=== PATIENT | female | born 1975 | race Caucasian/White ===

== ENCOUNTER 2018-01-16 12:45 | Observation (INO) ==
[2018-01-16 14:22] LABS: Basophils % 0.2 %; Eosinophils % 0.1 %; Hematocrit 39.4 % (35.3-44.9); Hemoglobin 13.5 g/dL (11.5-15.4); Immature Granulocytes % 0.4 % (0-4); Lymphocytes # 2.6 K/mcL (0.6-4.6); Lymphocytes % 16.5 %; Mean Corpuscular HGB Conc 34.3 g/dL (31.6-35.5); Mean Corpuscular Hemoglobin 30.9 pg (28.0-33.3); Mean Corpuscular Volume 90.2 fL (83.0-100.0); Mean Platelet Volume 10.7 fL (9.4-12.4); Monocytes # 1.1 K/mcL (0.0-1.3); Monocytes % 6.8 %; Neutrophils # 11.7 K/mcL (1.6-8.9); Platelet Count 284 K/mcL (140-400); Red Blood Count 4.37 M/mcL (3.82-4.97); Red Cell Distribution Width 12.9 % (11.5-14.5)
[2018-01-16 14:24] LABS: Alanine Aminotransferase 11 Units/L (7-52); Albumin 4.7 g/dL (3.5-5.7); Alkaline Phosphatase 122 Units/L (34-104); Aspartate Amino Transferase 13 Units/L (13-39); BUN/Creatinine Ratio 23 (6-26); Bilirubin,Indirect 0.2 mg/dL (0.0-1.2); Bilirubin,Total 0.2 mg/dL (0.3-1.0); Blood Urea Nitrogen 15 mg/dL (6-20); Calcium 9.9 mg/dL (8.6-10.3); Carbon Dioxide 27 mEq/L (23-29); Chloride 107 mEq/L (98-107); Globulin 2.4 g/dL (2.4-3.5); Glucose 94 mg/dL (70-105); Lipase 16 Units/L (11-82); Osmolality,Calculated 293 (280-300); Potassium 3.4 mEq/L (3.5-5.1); Sodium 141 mEq/L (136-145); Total Protein 7.1 g/dL (6.4-8.9); eGFR For Non-African Americans > 60 (> 60)
[2018-01-16] MEDS ORDERED: GI Cocktail 40 ML EACH PO ONE (15:46)
[2018-01-16] MEDS ORDERED: Ondansetron ODT 4 MG TAB.RAPDIS SL ONE (15:47)
[2018-01-16] MEDS ORDERED: *HR* Nalbuphine 10 MG/ML AMPUL IV PRN (16:21)
[2018-01-16] MEDS ORDERED: *HR* Nalbuphine 10 MG/ML AMPUL IV ONE (16:45)
[2018-01-16] MEDS ORDERED: *HR* Promethazine 25 MG/ML VIAL IVP ONE (17:00)
[2018-01-16] MEDS ORDERED: *HR* FentaNYL (PF) 100 MCG/2 ML VIAL IVP ONE ×2 (17:00→18:51)
--- NOTE | 2018-01-16 17:02 | Emergency Department Note ---
Disposition Clinical Impression: Chest pressure, Epigastric pain, Odynophagia Disposition: Still a Patient Referrals: NONE,PCP [Primary Care Provider] - Forms: ED Satisfaction Letter, Work/School Release General Adult HPI - General Chief complaint: ED Abdominal Pain Stated complaint: "coffee ground emesis",abd pain Time Seen by Provider: 01/16/18 15:33 - History of Present Illness Pain Scale: 9 - Related Data Allergies Allergy/AdvReac Type Severity Reaction Status Date / Time aspirin [ASA] Allergy Hives Verified 01/15/18 10:21 Iodinated Contrast- Oral and Allergy Hives Verified 01/15/18 11:27 IV Dye ketorolac [From Toradol] Allergy Hives Verified 01/15/18 10:21 prochlorperazine Allergy Hives Verified 01/15/18 10:21 [From Compazine] Past Medical History - Past Medical History Medical history: 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, pulmonary embolus, thyroid disease Psychiatric history: Reports: no psych history - Social History Smoking Status: Current every day smoker Alcohol use: Reports: none Drug use: Reports: none Course Vital Signs Temperature 98.1 F 01/16/18 13:09 Pulse Rate 121 01/16/18 13:09 Respiratory Rate 22 01/16/18 13:09 Blood Pressure 122/88 01/16/18 13:09 O2 Sat by Pulse Oximetry 100 01/16/18 13:09 Temperature 98.1 F 01/16/18 13:09 Pulse Rate 121 01/16/18 13:09 Respiratory Rate 22 01/16/18 13:09 Blood Pressure 122/88 01/16/18 13:09 O2 Sat by Pulse Oximetry 100 01/16/18 13:09 Oxygen Delivery Oxygen Delivery Room Air Medical Decision Making - MDM Narrative Medical decision making narrative: Patient states she is unable to eat or drink anything. She attempted to drink water but regurg to back up. I am concerned for possible esophageal foreign body versus stricture. She does have a history of esophageal strictures that has required dilation in the past. Her CT Brown and pelvis did not show any acute findings. She had a CTA of the chest done yesterday but there is no men tion of her having any foreign body stuck at that time. She states 2 nights ago she was eating steak and felt like she had a hard time swallowing and. She has not felt right since then. She describes this pain and pressure in her chest. We will consult with endoscopy or GI for possible EGD. - Medical Records Medical records reviewed: Yes I reviewed the patient's medical records. - Lab Data Lab results reviewed: Yes I reviewed the patient's lab results. Result diagrams: 01/16/18 13:44 01/16/18 13:44 Lab Results 01/16/18 01/16/18 Range/Units 13:44 13:44 WBC 15.5 H (4.3-11.1) K/mcL RBC 4.37 (3.82-4.97) M/mcL Hgb 13.5 (11.5-15.4) g/dL Hct 39.4 (35.3-44.9) % MCV 90.2 (83.0-100.0) fL MCH 30.9 (28.0-33.3) pg MCHC 34.3 (31.6-35.5) g/dL RDW 12.9 (11.5-14.5) % Plt Count 284 (140-400) K/mcL MPV 10.7 (9.4-12.4) fL Immature Gran % 0.4 (0-4) % Seg Neutrophils % 76.0 % Lymphocytes % 16.5 % Monocytes % 6.8 % Eosinophils % 0.1 % Basophils % 0.2 % Neutrophils # 11.7 H (1.6-8.9) K/mcL Lymphocytes # 2.6 (0.6-4.6) K/mcL Monocytes # 1.1 (0.0-1.3) K/mcL Eosinophils # 0.0 (0.0-0.6) K/mcL Basophils # 0.0 (0.0-0.2) K/mcL Sodium 141 (136-145) mEq/L Potassium 3.4 L (3.5-5.1) mEq/L Chloride 107 (98-107) mEq/L Carbon Dioxide 27 (23-29) mEq/L BUN 15 (6-20) mg/dL Creatinine 0.64 (0.60-1.20) mg/dL Est GFR ( Amer) > 60 (> 60) Est GFR (Non-Af Amer) > 60 (> 60) BUN/Creatinine Ratio 23 (6-26) Glucose 94 (70-105) mg/dL Calculated Osmolality 293 (280-300) Calcium 9.9 (8.6-10.3) mg/dL Total Bilirubin 0.2 L (0.3-1.0) mg/dL Direct Bilirubin 0.0 (0.0-0.2) mg/dL Indirect Bilirubin 0.2 (0.0-1.2) mg/dL AST 13 (13-39) Units/L ALT 11 (7-52) Units/L Alkaline Phosphatase 122 H (34-104) Units/L Serum Total Protein 7.1 (6.4-8.9) g/dL Albumin 4.7 (3.5-5.7) g/dL Globulin 2.4 (2.4-3.5) g/dL Albumin/Globulin Ratio 2.0 (1.1-2.2) Lipase 16 (11-82) Units/L - Radiology Data Radiology results reviewed: Yes I reviewed the patient's radiology results. Attestation Statement - Attestation Attestation: I examined this patient and my medical decision-making was reviewed with the Resident Physician. I agree with the documented findings, disposition and treatment plan as described except to the extent set forth below. 42-year-old female presents to the emergency room with epigastric abdominal pain. Patient was seen here yesterday by the other emergency room physician for workup for a pulmonary embolus. Her scan of her chest yesterday was negative for any pulmonary embolus. She states she developed upper abdominal pain specifically to the epigastric region overnight around 2 AM. She has had persistent pain ever since. She states she threw up coffee ground emesis earlier. She denies blood in her stool. No fevers. She does feel bloated. She feels that she cannot swallow well. We will do a CT scan abdomen and pelvis. Patient initially refused the study until she got pain medication. I have ordered her Nubain pain medication but she refused it. She would rather have Dilaudid or fentanyl.
--- NOTE | 2018-01-16 17:05 | Emergency Department Note ---
Disposition Clinical Impression: Chest pressure, Epigastric pain, Odynophagia Disposition: Admitted As Inpatient Time of Disposition: 19:53 Abdominal Pain HPI - General Chief Complaint: ED Abdominal Pain Stated Complaint: "coffee ground emesis",abd pain Time Seen by Provider: 01/16/18 15:33 Source: patient Mode of arrival: private vehicle Limitations: no limitations Nursing Notes Reviewed: Yes Vital Signs Reviewed: Yes - History of Present Illness HPI Narrative: Patient is a 42-year-old female presenting to [facility] ED for one day history of abdominal pain. Patient was seen yesterday in the ED due to chest pressure and pleuritic chest pain with concerns over pulmonary embolism. CTA yielded no pathology in the patient was discharged home. Patient states that at approximately 1 AM this morning she developed mid epigastric pain 10 out of 10 on the pain scale sharp and stabbing in nature that radiates to her left flank. Patient states that she has continuously had chest pressure which brought her to the ED yesterday. Patient admits to headache, denies vision change or tinnitus, patient states that she is experiencing severe dysphasia and cannot swallow her own secretions. Patient's admits to vomiting "coffee ground emesis". Patient denies hematuria or hematochezia as well as generalized paresthesias. Pt Subjective Complaint: abdominal pain Onset (ago): day(s) Consistency: constant Location: epigastric Pain Severity: severe Pain Scale: 10 Quality: stabbing, sharp Radiation: L flank Migration to: no migration Improves with: medication Associated symptoms: Reports: nausea, vomiting, hematemesis, anorexia - Related Data Home Medications Medication Instructions Recorded Confirmed Levothyroxine Sodium [Levoxyl] 125 mcg PO QAM 01/16/18 01/16/18 Polyethylene Glycol 3350 [MiraLax 17 gm PO DAILY PRN 01/16/18 01/16/18 bowel prep] Allergies Allergy/AdvReac Type Severity Reaction Status Date / Time aspirin [ASA] Allergy Hives Verified 01/15/18 10:21 Iodinated Contrast- Oral and Allergy Hives Verified 01/15/18 11:27 IV Dye ketorolac [From Toradol] Allergy Hives Verified 01/15/18 10:21 prochlorperazine Allergy Hives Verified 01/15/18 10:21 [From Compazine] All systems ED: reviewed and negative except as stated. Review of Systems: As Per HPI Constitutional: Reports: weakness ENT ED: Reports: dysphagia Cardiovascular: Reports: chest pain Respiratory: Reports: dyspnea Gastrointestinal: Reports: abdominal pain, nausea, vomiting, hematemesis. Denies: hematochezia Genitourinary: Denies: hematuria Musculoskeletal: Reports: back pain Neurological: Reports: headache. Denies: numbness, paresthesias Abdominal Pain PMH - Past Medical History Medical history: 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, pulmonary embolus, thyroid disease Female Surgical History: Reports: appendectomy, cholecystectomy, herniorrhaphy, hysterectomy, orthopedic, other Psychiatric history: Reports: no psych history - Social History Smoking status: Current every day smoker Alcohol use: Reports: none Drug use: Reports: none Physical Exam - General Limitations: no limitations General appearance: alert, in distress - Head Head exam: atraumatic, normocephalic, normal inspection - Eye Eye exam: Present: normal appearance, PERRL, EOMI. Absent: scleral icterus, conjunctival injection - Neck Neck exam: Present: normal inspection, trachea midline - Chest Chest inspection: Present: normal inspection - Respiratory Respiratory exam: Present: normal lung sounds bilaterally. Absent: respiratory distress, wheezes, stridor, accessory muscle use, prolonged expiratory phase - Cardiovascular Cardiovascular exam: Present: regular rate, normal rhythm, normal heart sounds, +S1, +S2. Absent: JVD, +S3, +S4 - Abdominal Exam Abdominal exam: Present: soft, tenderness, normal bowel sounds. Absent: distention, guarding, rebound, rigidity - Neurological Exam Neurological exam: Present: alert, oriented X3 - Psychiatric Psychiatric exam: Present: agitated - Skin Skin exam: Present: warm, dry, intact, normal color. Absent: cyanosis, diaphoresis Course Course Narrative: Patient history, review systems, and physical exam are concerning for abdominal pelvic pathology. CBC, BMP, CT of the abdomen and pelvis, hepatic panel, lipase, urinalysis, EKG be performed to assess for underlying pathology. Patient was initially prescribed GI cocktail as well as Zofran to manage mental of her symptoms, which was refused. Patient was prescribed Nubain which was al so refused due to patient's concerns over previous allergies to opioid medications. Patient requests fentanyl or Dilaudid for the management of her symptoms. Patient was administered fentanyl for pain control. - Reevaluation(s) Reevaluation #1: Patient states that her pain is significantly relieved with Phenergan and fentanyl. She currently rates her pain as 5 out of 10 on the pain scale down from 10 out of 10 on initial encounter. Time: 17:43 - Consultations Consultation #1: Dr. Castaneda - Gastroenterology Vital Signs Temperature 98.1 F 01/16/18 13:09 Pulse Rate 121 01/16/18 13:09 Respiratory Rate 22 01/16/18 13:09 Blood Pressure 122/88 01/16/18 13:09 O2 Sat by Pulse Oximetry 100 01/16/18 13:09 Temperature 98.1 F 01/16/18 13:09 Pulse Rate 121 01/16/18 13:09 Respiratory Rate 22 01/16/18 13:09 Blood Pressure 122/88 01/16/18 13:09 O2 Sat by Pulse Oximetry 100 01/16/18 13:09 Oxygen Delivery Oxygen Delivery Room Air Abdominal Pain - MDM Narrative Medical decision making narrative: Dr. Castaneda from gastroenterology consulted - recommends admission to the hospital with gastroenterology consult for endoscopy tomorrow morning. Plan for admission discussed with the patient and the patient agrees with this plan. Hospitalists accepts admission and requests Hemoccult stool sample prior to admission as inpatient. - Lab Data Lab results reviewed: Yes I reviewed the patient's lab results. Result diagrams: 01/16/18 13:44 01/16/18 13:44 Lab Results 01/16/18 01/16/18 Range/Units 13:44 13:44 WBC 15.5 H (4.3-11.1) K/mcL RBC 4.37 (3.82-4.97) M/mcL Hgb 13.5 (11.5-15.4) g/dL Hct 39.4 (35.3-44.9) % MCV 90.2 (83.0-100.0) fL MCH 30.9 (28.0-33.3) pg MCHC 34.3 (31.6-35.5) g/dL RDW 12.9 (11.5-14.5) % Plt Count 284 (140-400) K/mcL MPV 10.7 (9.4-12.4) fL Immature Gran % 0.4 (0-4) % Seg Neutrophils % 76.0 % Lymphocytes % 16.5 % Monocytes % 6.8 % Eosinophils % 0.1 % Basophils % 0.2 % Neutrophils # 11.7 H (1.6-8.9) K/mcL Lymphocytes # 2.6 (0.6-4.6) K/mcL Monocytes # 1.1 (0.0-1.3) K/mcL Eosinophils # 0.0 (0.0-0.6) K/mcL Basophils # 0.0 (0.0-0.2) K/mcL Sodium 141 (136-145) mEq/L Potassium 3.4 L (3.5-5.1) mEq/L Chloride 107 (98-107) mEq/L Carbon Dioxide 27 (23-29) mEq/L BUN 15 (6-20) mg/dL Creatinine 0.64 (0.60-1.20) mg/dL Est GFR ( Amer) > 60 (> 60) Est GFR (Non-Af Amer) > 60 (> 60) BUN/Creatinine Ratio 23 (6-26) Glucose 94 (70-105) mg/dL Calculated Osmolality 293 (280-300) Calcium 9.9 (8.6-10.3) mg/dL Total Bilirubin 0.2 L (0.3-1.0) mg/dL Direct Bilirubin 0.0 (0.0-0.2) mg/dL Indirect Bilirubin 0.2 (0.0-1.2) mg/dL AST 13 (13-39) Units/L ALT 11 (7-52) Units/L Alkaline Phosphatase 122 H (34-104) Units/L Serum Total Protein 7.1 (6.4-8.9) g/dL Albumin 4.7 (3.5-5.7) g/dL Globulin 2.4 (2.4-3.5) g/dL Albumin/Globulin Ratio 2.0 (1.1-2.2) Lipase 16 (11-82) Units/L - Radiology Data Radiology results reviewed: Yes I reviewed the patient's radiology results. Chest X-Ray 01/16/18 15:47 IMPRESSION: 1. No radiographic finding to account for patient's hematemesis. D/ / Lenny Cuba MD / Lenny Cuba MD Interpreting Provider: Lenny Cuba MD Abdomen/Pelvis CT 01/16/18 15:47 IMPRESSION: No evidence for acute intra-abdominal or intrapelvic pathology. No bowel obstruction or inflammation. No evidence for nephrolithiasis or urinary obstruction. Status post appendectomy and cholecystectomy. Left-sided nephrolithiasis without urinary obstruction or hydronephrosis. Postsurgical changes of the lumbar spine. Diastases of the anterior abdominal wall. D/ / Cleveland Kline MD / Cleveland Kline MD Interpreting Provider: Clevleand Kline MD Chest X-Ray 01/16/18 15:47 IMPRESSION: 1. No radiographic finding to account for patient's hematemesis. D/ / Lenny Cuba MD / Lenny Cuba MD Interpreting Provider: Lenny Cuba MD - EKG Data EKG attestation: Yes I reviewed and interpreted this EKG. EKG results narrative: Patient EKG shows a sinus tachycardia with normal rhythm and axis, heart rate is 103 bpm, WI interval of 131 ms, QRS duration of 91 ms, QT/QTc interval 343/449 ms respectively. There are no significant ST segment elevations, depressions, abnormal T-wave inversions, pathologic Q waves, or any other signs of acute ischemic change. This EKG performed today is generally consistent with prior EKG performed on 01/15/2018.
[2018-01-16] MEDS ORDERED: Famotidine 20 MG/2 ML VIAL IVP ONE (17:09)
[2018-01-16] MEDS ORDERED: Water for inj. (sterile) 10 ML IV ONE (17:17)
[2018-01-16] MEDS ORDERED: Potassium Chloride 40 MEQ in D5% in 0.9% NACL 1,000 ML IVC SCH (19:30)
[2018-01-16] MEDS ORDERED: Ondansetron 4 MG/2 ML VIAL IVP PRN (19:30)
[2018-01-16] MEDS ORDERED: Metoclopramide 10 MG/2 ML VIAL IVP PRN (19:31)
--- NOTE | 2018-01-16 20:57 | Internal Med History&Physical ---
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 She was initially seen last night for this and PE was ruled out with a CTA. She comes in with ongoing pain now stating that it commenced after eating something and feels as though something is stuck in her esophagus. She states she has been unable to swallow since and regurgitates even fluid. She reports having had what looked like coffee ground emesis 1 time but has not recurred. She then had CT abdomen/pelvis done which did not show any acute pathologies. GI was consulted and recommended she be observed overnight and will undergo EGD in the morning. Of note, she states that she is intolerant of any pain medications other than fentanyl and dilaudid and needs it round the clock. Past Med Surg Social Fam HX - Past Medical History Medical history: DVT, pulmonary embolus, thyroid disease Additional medical history: DDD Psychiatric history: no psych history - Past Surgical History Additional surgical history: sections of bowel remove - Social History Smoking Status: Current every day smoker Smokeless Tobacco Status: No Alcohol use: none Drug use: none Internal Medicine - H&P: Meds Levothyroxine Sodium [Levoxyl] 125 mcg PO QAM 01/16/18 [History] Polyethylene Glycol 3350 [MiraLax bowel prep] 17 gm PO DAILY PRN 01/16/18 [History] Allergy/AdvReac Type Severity Reaction Status Date / Time aspirin [ASA] Allergy Hives Verified 01/15/18 10:21 Iodinated Contrast- Oral and Allergy Hives Verified 01/15/18 11:27 IV Dye ketorolac [From Toradol] Allergy Hives Verified 01/15/18 10:21 prochlorperazine Allergy Hives Verified 01/15/18 10:21 [From Compazine] All Systems PM: A 10-system review of systems was performed and is negative for pertinent f indings except as documented above in the HPI. Family history obtained and found noncontributory. - Constitutional Vitals: Temp Pulse Resp BP Pulse Ox 98.1 F 121 22 122/88 100 01/16/18 20:31 01/16/18 20:31 01/16/18 20:31 01/16/18 20:31 01/16/18 20:31 Exam: Vitals: Reviewed General: Obese white female lying comfortably in bed in NAD Skin: Warm and supple. HEENT: Moist mucous membranes. No conjunctivae pallor. Neck: No lymphadenopathy. No JVD. No carotid bruits. No palpable thyroid. Chest: Normal thoracic expansion. Normal breath sounds. Clear to auscultation. Heart: Normal S1 & S2; rhythmic. No rubs or murmurs. Abdomen: Non-distended, soft and tender elicited on superficial palpation of her epigastrium. Midline surgical incision scar noted. Extremities: No clubbing, cyanosis or edema. No calf tenderness. Normal distal pulses. Neurological: Awake, alert and oriented to person, place and time. No focal deficits. Psych: Affect appropriate. Internal Med - H&P Results - Labs CBC & Chem 7: 01/16/18 13:44 01/16/18 13:44 Labs: Short CBC 01/16/18 Range/Units 13:44 WBC 15.5 H (4.3-11.1) K/mcL Hgb 13.5 (11.5-15.4) g/dL Hct 39.4 (35.3-44.9) % Plt Count 284 (140-400) K/mcL Neutrophils # 11.7 H (1.6-8.9) K/mcL BMP 01/16/18 13:44 Sodium 141 Potassium 3.4 L Chloride 107 Carbon Dioxide 27 BUN 15 Creatinine 0.64 Glucose 94 Calcium 9.9 Liver Function 01/16/18 Range/Units 13:44 Total Bilirubin 0.2 L (0.3-1.0) mg/dL Direct Bilirubin 0.0 (0.0-0.2) mg/dL AST 13 (13-39) Units/L ALT 11 (7-52) Units/L Alkaline Phosphatase 122 H (34-104) Units/L Albumin 4.7 (3.5-5.7) g/dL - Impressions ITS Impressions Abdomen/Pelvis CT 01/16/18 15:47 IMPRESSION: No evidence for acute intra-abdominal or intrapelvic pathology. No bowel obstruction or inflammation. No evidence for nephrolithiasis or urinary obstruction. Status post appendectomy and cholecystectomy. Left-sided nephrolithiasis without urinary obstruction or hydronephrosis. Postsurgical changes of the lumbar spine. Diastases of the anterior abdominal wall. D/ / Cleveland Kline MD / Cleveland Kline MD Interpreting Provider: Cleveland Kline MD Chest X-Ray 01/16/18 15:47 IMPRESSION: 1. No radiographic finding to account for patient's hematemesis. D/ / Lenny Cuba MD / Lenny Cuba MD Interpreting Provider: Lenny Cuba MD - Assessment and plan (1) Odynophagia Current Visit: Yes Status: Acute Assessment and plan: Concern for foreign body or esophageal stricture. Will keep NPO pending EGD. Place on continuous fluids in the interim. (2) Chest pain Current Visit: Yes Status: Acute Assessment and plan: Seems related to her difficulty with deglutition. PE ruled out. No signs of ischemia on EKG. Troponins negative x 2 yesterday. Pain medications prn. Qualifiers: Chest pain type: unspecified Qualified Code(s): R07.9 - Chest pain, unspecified (3) VTE (venous thromboembolism) Current Visit: Yes Status: Acute Assessment and plan: Acute PE ruled out. No longer on anticoagulation for prior DVTs. Currently has compression stockings on. Will place on heparin subq. (4) Hypothyroid Current Visit: Yes Status: Acute Assessment and plan: Will continue levothyroxine once cleared for PO. Qualifiers: Hypothyroidism type: postoperative Qualified Code(s): E89.0 - Postprocedural hypothyroidism - Time Spent With Patient Total time spent is greater than 50% in coordination of care (as documented) at patient's floor/unit and/or counseling patient: Greater than 35 minutes
[2018-01-16] MEDS: Pantoprazole 40 MG VIAL IVP SCH (21:06)
[2018-01-16] MEDS: *HR* HYDROmorphone (PF) 1 MG/ML SYRINGE IVP PRN (21:20)
[2018-01-16] MEDS: *HR* Heparin 5,000 UNIT/ML VIAL SQ SCH (21:30)
[2018-01-17] MEDS: *HR* HYDROmorphone (PF) 1 MG/ML SYRINGE IVP PRN ×2 (01:29→05:48)
[2018-01-17 03:41] LABS: Bilirubin,Urine Negative (Negative); Blood,Urine Negative (Negative); Clarity,Urine Clear (Clear); Color,Urine Yellow (Yellow); Glucose,Urine (UA) Normal (Normal); Ketones,Urine Negative (Negative); Leukocyte Esterase,Urine Negative (Negative); Nitrite,Urine Negative (Negative); PH,Urine 5.5 pH Units (5.0-8.0); Protein,Urine Negative (Neg-Trace); Specific Gravity,Urine 1.021 (1.010-1.025); Urobilinogen,Urine Normal (Normal)
[2018-01-17 05:33] LABS: Basophils % 0.4 %; Eosinophils % 0.3 %; Immature Granulocytes % 0.4 % (0-4); Lymphocytes # 2.6 K/mcL (0.6-4.6); Lymphocytes % 35.9 %; Mean Corpuscular HGB Conc 33.7 g/dL (31.6-35.5); Mean Corpuscular Hemoglobin 30.7 pg (28.0-33.3); Mean Corpuscular Volume 91.1 fL (83.0-100.0); Mean Platelet Volume 10.9 fL (9.4-12.4); Monocytes % 11.6 %; Platelet Count 223 K/mcL (140-400); Red Blood Count 3.84 M/mcL (3.82-4.97); Red Cell Distribution Width 13.2 % (11.5-14.5); Segmented Neutrophils % 51.4 %
[2018-01-17 05:34] LABS: Hemoglobin 11.8 g/dL (11.5-15.4); Monocytes # 0.9 K/mcL (0.0-1.3); Neutrophils # 3.8 K/mcL (1.6-8.9)
[2018-01-17 05:40] LABS: Prothrombin Time 11.7 Seconds (9.4-12.1)
[2018-01-17 05:42] LABS: Activated Partial Thrombo Time 28.9 Seconds (26.0-36.0)
[2018-01-17] MEDS: *HR* Heparin 5,000 UNIT/ML VIAL SQ SCH ×2 (05:45→14:06)
[2018-01-17 06:44] LABS: BUN/Creatinine Ratio 29 (6-26); Blood Urea Nitrogen 20 mg/dL (6-20); Calcium 8.6 mg/dL (8.6-10.3); Carbon Dioxide 27 mEq/L (23-29); Glucose 98 mg/dL (70-105); eGFR For Non-African Americans > 60 (> 60)
[2018-01-17 06:45] LABS: Chloride 111 mEq/L (98-107); Osmolality,Calculated 305 (280-300); Potassium 4.2 mEq/L (3.5-5.1); Sodium 146 mEq/L (136-145)
[2018-01-17] MEDS: Pantoprazole 40 MG VIAL IVP SCH (09:28)
[2018-01-17] MEDS ORDERED: *HR* FentaNYL (PF) 100 MCG/2 ML VIAL IVP PRN (09:37)
[2018-01-17] MEDS ORDERED: Hyoscyamine SL 0.125 MG TAB.SUBL SL PRN (10:30)
[2018-01-17] MEDS ORDERED: OXYCODONE Oral CONC 10 MG/0.5 ML ORAL.SYG PO PRN (11:53)
[2018-01-17] MEDS ORDERED: *HR* Midazolam HCl 5 MG/5 ML VIAL IVP ONE (11:58)
--- NOTE | 2018-01-17 11:58 | Gastroenterology Consult Note ---
<Maria Victoria Antonio - Last Filed: 01/17/18 11:56> Date of Encounter: 01/17/18 Time of Encounter: 10:00 - Assessment and plan (1) Dysphagia Current Visit: Yes Status: Acute Assessment and plan: Will proceed with EGD today with possible dilation. Will order hyosciamine for possible esophageal spasms. Qualifiers: Dysphagia type: esophageal phase Qualified Code(s): R13.10 - Dysphagia, unspecified (2) Epigastric pain Current Visit: Yes Status: Acute Assessment and plan: EGD today, continue protonix, pt is receiving pain medications. CT abdomen was negative. 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 She presented with complaints of midsternal chest pain radiating down to the epigastrium since last night. She was initially seen last night for this and PE was ruled out with a CTA. She reports that Tuesday night she ate steak and had a very hard time swallowing it. Then on Tuesday morning she had coffee ground emesis and has been unable to swallow liquids or solids sine then. She states she cannot even swallow her saliva. She continues to complain of pain in her throat, chest and epigastrum that is relieved "for a while" with fentanyl. She denies any GERD, nausea, vomiting, diarrhea, constipation. bloody or tarry stools. Of note, she states that she is intolerant of any pain medications other than fentanyl and dilaudid and needs it round the clock. She also states she has had scopes before and "versed does not work on me, they have to use the white stuff". She states she just moved here from [place] and is unsure of the hospital where her last scopes were done. EGD/colon: unsure nsaids: denies anticoagulants: denies Past Med Surg Social Fam HX - Past Medical History Medical history: DVT, pulmonary embolus, thyroid disease Additional medical history: DDD Psychiatric history: no psych history - Past Surgical History Additional surgical history: sections of bowel remove - Social History Smoking Status: Current every day smoker Smokeless Tobacco Status: No Alcohol use: none Drug use: none - Family History Father Living Status: Still Living Hx Family Cardiac Disorders: Yes (cardiomyopathy, CHF) Review of Systems: GI: as per RUBY GENERAL: denies fever, has some chills EYES: denies yellow discoloration ENT: see HPI CARDIO: see hPI RESP: No Shortness of breath with exertion : denies change in color of urine NEURO: denies any weakness HEME: Denies any bruising MS: denies joint pain, joint swelling or back pain. DERM: denies rash or itching PSYCH: Denies history of anxiety or depression - Constitutional Vitals: Temp Pulse Resp BP Pulse Ox 98.1 F 69 16 91/59 94 01/17/18 11:29 01/17/18 11:29 01/17/18 11:29 01/17/18 11:29 01/17/18 11:29 Exam: CONSTITUTIONAL:alert, no acute distress, tearful at times during exam.HEAD:normocephalic.EYES:no jaundice.NECK:no obvious swelling.HEART:regular rate and rhythm, no murmurs.LUNGS:bilateral good air entry.ABDOMEN:non distended, soft, tender epigastric area, no masses palpable, no organomegaly.RECTAL EXAM:Deferred.EXTREMITIES:no clubbing, cyanosis or edema.SKIN:no stigmata of chronic liver disease.NEUROLOGIC:no obvious focal defect. Results - Labs CBC & Chem 7: 01/17/18 04:19 01/17/18 04:19 Labs: Last Result Calcium 8.6 mg/dL (8.6-10.3) 01/17/18 04:19 Entire Visit Hgb 11.8 g/dL (11.5-15.4) D 01/17/18 04:19 Hct 35.0 % (35.3-44.9) L 01/17/18 04:19 PT 11.7 Seconds (9.4-12.1) 01/17/18 04:19 Total Bilirubin 0.2 mg/dL (0.3-1.0) L 01/16/18 13:44 AST 13 Units/L (13-39) 01/16/18 13:44 ALT 11 Units/L (7-52) 01/16/18 13:44 Lipase 16 Units/L (11-82) 01/16/18 13:44 - ABG ABG results: PT/INR, D-dimer PT 11.7 Seconds (9.4-12.1) 01/17/18 04:19 - Impressions Impressions Abdomen/Pelvis CT 01/16/18 15:47 IMPRESSION: No evidence for acute intra-abdominal or intrapelvic pathology. No bowel obstruction or inflammation. No evidence for nephrolithiasis or urinary obstruction. Status post appendectomy and cholecystectomy. Left-sided nephrolithiasis without urinary obstruction or hydronephrosis. Postsurgical changes of the lumbar spine. Diastases of the anterior abdominal wall. D/ / Cleveland Kline MD / Cleveland Kline MD Interpreting Provider: Cleveland Kline MD Chest X-Ray 01/16/18 15:47 IMPRESSION: 1. No radiographic finding to account for patient's hematemesis. D/ / Lenny Cuba MD / Lenny Cuba MD Interpreting Provider: Lenny Cuba MD Consult Discharge Plan - Plan Instructions: Chest Pain (DC), Acute Abdominal Pain (DC) Additional Instructions: Follow-up appointments: If there is not an appointment listed below, please call your physician and schedule a follow-up appointment. If you have congestive heart failure and your symptoms return, make an appointment with your physician. Medication List: Carry an up to date list of medications you are taking at all time. We have given you an updated medication list including any new medications that you have been prescribed. Please provide that list to your primary provider Symptoms: If your condition changes or you experience any of the following symptoms, notify your physician immediately: Unusual or worsening pain, fever, persistent nausea and vomiting, bleeding, increase in swelling (especially in your legs), sudden weight gain, extreme dizziness, chest pain, increased drainage or redness from a wound or incision. Go to the emergency department if you experience a problem with breathing. Weights: If you have a history of swelling or shortness of breath, weigh yourself daily and notify your physician if you have a weight gain of two or more pounds in one day or 5 or more pounds in a week. If you experience any of the warning signs for stroke: Sudden numbness or weakness of the face, arm or leg; especially on one side of the body, sudden confusion, trouble speaking or understanding, sudden trouble seeing in one or both eyes, sudden trouble walking, dizziness, loss of balance or coordination, sudden sever headache with no cause; Call 911 or go to the emergency room. Stroke is a medical emergency. Some risk factors for stroke: Age, cigarette smoking, diabetes, excessive alcohol consumption, family history, high blood pressure, overweight, physical inactivity, prior stroke, heart attack, diagnosis of carotid artery stenosis or other artery disease. If you smoke, STOP: Smoking or tobacco use significantly increases your risk of heart and lung disea se. Your chance of disease greatly increases if you continue to smoke. For more information, call the [employer] tobacco quit line for smoking cessation 5-286-RDTZ-NOW ( ) Referrals: Juanito Cazares DO [Partnered Physician] - 01/18/18 11:20 am NONE,PCP [Primary Care Provider] - Prescriptions: Hydromorphone HCl [Dilaudid] 1 mg PO Q6HR PRN 3 Days #5 tablet PRN Reason: Pain Omeprazole [PriLOSEC] 20 mg PO BIDAC #60 cap <Mckayla Castaneda - Last Filed: 01/17/18 16:51> Date of Encounter: 01/17/18 Time of Encounter: 12:00 - Time Spent With Patient Total time spent is greater than 50% in coordination of care (as documented) at patient's floor/unit and/or counseling patient: GI History of Present Illness - Data of Consult Requesting Physician: Daisha Durand MD - Consult Narrative History of present illness: Ms. Rodriguez is a 42 year old female - Constitutional Vitals: Temp Pulse Resp BP Pulse Ox 97.6 F 67 20 100/67 97 01/17/18 13:11 01/17/18 13:40 01/17/18 12:15 01/17/18 13:40 01/17/18 12:15 Results - Labs CBC & Chem 7: 01/17/18 04:19 01/17/18 04:19 Labs: Last Result Calcium 8.6 mg/dL (8.6-10.3) 01/17/18 04:19 Entire Visit Hgb 11.8 g/dL (11.5-15.4) D 01/17/18 04:19 Hct 35.0 % (35.3-44.9) L 01/17/18 04:19 PT 11.7 Seconds (9.4-12.1) 01/17/18 04:19 Total Bilirubin 0.2 mg/dL (0.3-1.0) L 01/16/18 13:44 AST 13 Units/L (13-39) 01/16/18 13:44 ALT 11 Units/L (7-52) 01/16/18 13:44 Lipase 16 Units/L (11-82) 01/16/18 13:44 - ABG ABG results: PT/INR, D-dimer PT 11.7 Seconds (9.4-12.1) 01/17/18 04:19 - Impressions Impressions Abdomen/Pelvis CT 01/16/18 15:47 IMPRESSION: No evidence for acute intra-abdominal or intrapelvic pathology. No bowel obstruction or inflammation. No evidence for nephrolithiasis or urinary obstruction. Status post appendectomy and cholecystectomy. Left-sided nephrolithiasis without urinary obstruction or hydronephrosis. Postsurgical changes of the lumbar spine. Diastases of the anterior abdominal wall. D/ / Cleveland Kline MD / Cleveland Kline MD Interpreting Provider: Cleveland Kline MD - Attending Attestation I have personally performed a face to face evaluation on this patient. I have reviewed and agree with the care plan. History and Exam by me shows: Patient with complaint of epigastric pain and dysphagia. Per patient the symptoms are 2 days in origin. On examination very subjective tenderness in the epigastric area. CT scan was reviewed which is totally unremarkable with no biliary dilation. LFTs are normal . Assessment: Epigastric pain dysphagia. Rec: EGD to rule out any obstruction/esophageal gastric lesion
[2018-01-17] MEDS ORDERED: *HR* FentaNYL (PF) 100 MCG/2 ML VIAL ONE (11:59)
--- NOTE | 2018-01-17 12:26 | Anesthesia Evaluation PreOp ---
Date of Encounter: 01/17/18 Time of Encounter: 12:24 - Past History Planned Operation: EGD Cardiac History: Denies any Significant Hx ( DVT, pulmonary embolus, thyroid disease Additional medical history: DDD Psychiatric history: no psych history), Other (Hx PE, DVT) Pulmonary History: Smoker CASING MIXER History: Other (DDD) Other Medical History: Thyroid (Hypo) Anesthesia History: Past Anesthesia (Bowel resection) : No Test: Negative (01/17/2018) Alcohol Use: none Drug use: none Medications and Allergies Levothyroxine Sodium [Levoxyl] 125 mcg PO QAM 01/16/18 [History] Polyethylene Glycol 3350 [MiraLax bowel prep] 17 gm PO DAILY PRN 01/16/18 [History] Allergy/AdvReac Type Severity Reaction Status Date / Time aspirin [ASA] Allergy Hives Verified 01/15/18 10:21 Iodinated Contrast- Oral and Allergy Hives Verified 01/15/18 11:27 IV Dye ketorolac [From Toradol] Allergy Hives Verified 01/15/18 10:21 prochlorperazine Allergy Hives Verified 01/15/18 10:21 [From Compazine] - Meds/Allergy Pre-op Review Medications Reviewed: Yes Allergies Reviewed: Yes Beta Blockers on Current Med List: No Anesthesia Results - Labs 01/17/18 04:19 01/17/18 04:19 Laboratory Tests 01/17/18 01/17/18 01/17/18 03:32 04:19 04:19 WBC 7.3 D Hgb 11.8 D Hct 35.0 L Plt Count 223 INR 1.0 Sodium Potassium Chloride Carbon Dioxide BUN Creatinine Urine Test Negative 01/17/18 04:19 WBC Hgb Hct Plt Count INR Sodium 146 H Potassium 4.2 Chloride 111 H Carbon Dioxide 27 BUN 20 Creatinine 0.68 Urine Test - Imaging EKG: report reviewed (ST) Anesthesia Exam Vital Signs/O2 Sat, Most Current Temp Pulse Resp BP Pulse Ox 98.1 F 100 20 120/73 97 01/17/18 12:15 01/17/18 12:15 01/17/18 12:15 01/17/18 12:15 01/17/18 12:15 NPO (# of Hours): > 8 hrs Pain Scale: 3 Pain Scale Used: Numeric (1 - 10) - HEENT Pupil (Motor): Pupils equal, EOMI Mallampati: II Teeth: Edentulous Denture Type: Upper: Complete, Lower: Complete Oral Opening: Greater than 3 - CASING MIXER LOC: Oriented CASING MIXER Motor: Normal RUE, Normal LUE, Normal RLE, Normal LLE, Normal Face CASING MIXER Sensory: Normal: RUE, LUE, RLE, LLE, Face - Cardiac Rhythm: Regular Murmur: None JVD: No Carotid Bruit: No - Pulmonary Breath Sounds: bilateral Clear Respiratory Effort: Symmetrical Anesthesia Assess/Plan ASA Score: 2 Level of consciousness: Cooperative Anesthetic Plan: MAC Autologous Blood: Yes Monitoring Plan: Standard Monitors Recovery Plan: Other
[2018-01-17] MEDS ORDERED: *HR* Propofol 200 MG/20 ML VIAL IVP ONE (12:42)
[2018-01-17 14:01] VITALS: BP 100/67
[2018-01-17] MEDS ORDERED: *HR* HYDROmorphone 2 MG TABLET PO PRN (14:43)
--- NOTE | 2018-01-17 15:25 | Discharge Summary ---
- NOTES TO OUTPATIENT PROVIDER Notes to Outpatient Provider: Follow up with PCP in one week. follow-up with the pain management tomorrow as scheduled Orders not resulted at time of discharge: Pending orders 01/16/18 15:50 ECG 12 lead ECG [ECG] Stat 01/17/18 12:52 Surgical Pathology [PTH] Routine Date of Encounter: 01/17/18 Time of Encounter: 15:23 - Discharge Diagnosis (1) Intractable abdominal pain Priority: Primary Status: Acute (2) Odynophagia Priority: Primary Status: Acute (3) H/O abdominal surgery Priority: Secondary Status: Acute (4) Chest pain Priority: Secondary Status: Acute Qualifiers: Chest pain type: unspecified Qualified Code(s): R07.9 - Chest pain, unspecified (5) VTE (venous thromboembolism) Priority: Secondary Status: Acute (6) Hypothyroid Priority: Secondary Status: Acute Qualifiers: Hypothyroidism type: postoperative Qualified Code(s): E89.0 - Postprocedural hypothyroidism Hospital course: Ms. Rodriguez is a 42 year old woman with known past medical history of DVT/PE after orthopedic surgeries no longer on anticoagulation and multiple abdomen surgeries in the past at so many different hospitals in [place], [place], who recently moved to [facility] 2 months ago now she presented to our ER complaining of midsternal chest pain radiating down to the epigastrium since last night. She was initially seen night before for this and PE was ruled out with a CTA. She comes in with ongoing pain now stating that it commenced after eating something and feels as though something is stuck in her esophagus. Her CT abdomen/pelvis done which did not show any acute pathologies. She was admitted in the hospital and had EGD done today which showed mucosal nodule otherwise completely normal study. So for all the work up came back is negative for regarding her intractable abdominal pain while. However patient is so careful and Complaining about Severe Abdominal Pain and Often for Pain Medication. Patient stated none of the pain medication works for her except the Dilaudid only. Given her multiple abdomen surgeries she might have chronic pain as well as chronic narcotic dependence history I requested the patient to follow with patient management as an outpatient. For now I gave her prescription for Dilaudid 1mg PO Q6hr PRN and made an appointment with Pain management Dr. Cazares for tomorrow. - Time Spent with Patient Total time spent providing and/or coordinating discharge services: - Discharge Medications Home Medications: Levothyroxine Sodium [Levoxyl] 125 mcg PO QAM 01/16/18 [History] Polyethylene Glycol 3350 [MiraLax bowel prep] 17 gm PO DAILY PRN 01/16/18 [History] Allergies/Adverse Reactions: Allergy/AdvReac Type Severity Reaction Status Date / Time aspirin [ASA] Allergy Hives Verified 01/15/18 10:21 Iodinated Contrast- Oral and Allergy Hives Verified 01/15/18 11:27 IV Dye ketorolac [From Toradol] Allergy Hives Verified 01/15/18 10:21 prochlorperazine Allergy Hives Verified 01/15/18 10:21 [From Compazine] Date of admission: 01/16/18 19:40 Primary care physician: PCP NONE Consults: 01/16/18 19:09 Consult to Gastroenterology [CONS] Stat Consulting Provider: [facility] [place] Reason for Consult: Dysphagia Time Notified: 19:10 Call Completed: Yes - Constitutional Vitals: Temp Pulse Resp BP Pulse Ox 97.6 F 67 20 100/67 97 01/17/18 13:11 01/17/18 13:40 01/17/18 12:15 01/17/18 13:40 01/17/18 12:15 Exam: Gen: Alert, awake, Oriented to time,place and person Chest: Diminished breath sounds B/L, No wheezing, No crackles, No rales Heart: S1S2+ RRR No murmurs Abd: Soft, no guarding, noticed rigidity, BS +, No organomegaly.. Does have subjective pain over the abdomen.. Multiple surgical scars noticed over the abdomen Ext: No edema, pulses are palpable, No calf tenderness Neuro : Benign findings Skin: No rash. - Patient Status Disposition: Home, Self-Care Condition: Fair - Discharge Instructions Instructions: Chest Pain (DC), Acute Abdominal Pain (DC) Follow Up With: Juanito Cazares DO [Partnered Physician] - 01/18/18 11:20 am NONE,PCP [Primary Care Provider] - Additional Instructions: Follow-up appointments: If there is not an appointment listed below, please call your physician and schedule a follow-up appointment. If you have congestive heart failure and your symptoms return, make an appointment with your physician. Medication List: Carry an up to date list of medications you are taking at all time. We have given you an updated medication list including any new medications that you have been prescribed. Please provide that list to your primary provider Symptoms: If your condition changes or you experience any of the following symptoms, notify your physician immediately: Unusual or worsening pain, fever, persistent nausea and vomiting, bleeding, increase in swelling (especially in your legs), sudden weight gain, extreme dizziness, chest pain, increased drainage or redness from a wound or incision. Go to the emergency department if you experience a problem with breathing. Weights: If you have a history of swelling or shortness of breath, weigh yourself daily and notify your physician if you have a weight gain of two or more pounds in one day or 5 or more pounds in a week. If you experience any of the warning signs for stroke: Sudden numbness or weakness of the face, arm or leg; especially on one side of the body, sudden confusion, trouble speaking or understanding, sudden trouble seeing in one or both eyes, sudden trouble walking, dizziness, loss of balance or coordination, sudden sever headache with no cause; Call 911 or go to the emergency room. Stroke is a medical emergency. Some risk factors for stroke: Age, cigarette smoking, diabetes, excessive alcohol consumption, family history, high blood pressure, overweight, physical inactivity, prior stroke, heart attack, diagnosis of carotid artery stenosis or other artery disease. If you smoke, STOP: Smoking or tobacco use significantly increases your risk of heart and lung disease. Your chance of disease greatly increases if you continue to smoke. For more information, call the [employer] tobacco quit line for smoking cessation 3-406-AZNR-NOW ( ) - Diet and Activity Activity: increase activity as tolerated Diet: low salt diet
--- NOTE | 2018-01-17 22:41 | Electrocardiograph Report ---
[address] [place], [place] [address] Test Date: 2018-01-16 Pat Name: Wendi Rodriguez Department: EXAM[facility]2 Room: 3B Gender: F Chief Growth Officer: : 1975 Requested By: Bhupinder Cline Order Number: [id number] Reading MD: Donald Mendez Measurements Intervals [place] Rate: 103 P: 69 DE: 131 QRS: 70 QRSD: 91 T: 31 QT: 343 QTc: 449 Interpretive Statements Sinus tachycardia Electronically Signed On 01-17-2018 22:39:42 EST by Donald Mendez
== END 2018-01-17 18:42 | disposition home or self-care (01) ==
LOC: 3BNU 12:45 → EMEROOARM 12:45 → 3BNU 20:47
PROVIDERS: ADMIT Internal Medicine; ATTEND Internal Medicine
PROC: ENDOEBX (2018-01-17 14:50)

== ENCOUNTER 2018-09-30 14:46 | Observation (INO) ==
[2018-09-30] MEDS ORDERED: 0.9 % Sodium Chloride 1,000 ML IVC ONE (15:40)
[2018-09-30] MEDS ORDERED: *HR* FentaNYL (PF) 100 MCG/2 ML VIAL IVP ONE (15:40)
[2018-09-30 16:06] LABS: Basophils % 0.2 %; Eosinophils # 0.1 K/mcL (0.0-0.6); Eosinophils % 0.8 %; Hemoglobin 11.8 g/dL (11.5-15.4); Immature Granulocytes % 0.4 % (0-4); Lymphocytes # 1.4 K/mcL (0.6-4.6); Lymphocytes % 14.1 %; Mean Corpuscular HGB Conc 32.8 g/dL (31.6-35.5); Mean Corpuscular Hemoglobin 29.7 pg (28.0-33.3); Mean Corpuscular Volume 90.7 fL (83.0-100.0); Mean Platelet Volume 9.6 fL (9.4-12.4); Monocytes # 0.6 K/mcL (0.0-1.3); Monocytes % 6.2 %; Neutrophils # 7.6 K/mcL (1.6-8.9); Platelet Count 329 K/mcL (140-400); Red Blood Count 3.97 M/mcL (3.82-4.97); Red Cell Distribution Width 12.5 % (11.5-14.5); Segmented Neutrophils % 78.3 %; White Blood Count 9.7 K/mcL (4.3-11.1)
[2018-09-30] MEDS ORDERED: *HR* HYDROmorphone (PF) 1 MG/ML SYRINGE IVP ONE (16:11)
[2018-09-30 16:13] LABS: Prothrombin Time 11.4 Seconds (9.4-12.1)
--- NOTE | 2018-09-30 16:14 | Acute Care Surgery H&P ---
Date of Encounter: 09/30/18 Time of Encounter: 16:11 Assessment and Plan (1) Swallowed foreign body Status: Resolved The assessment and plan as outlined above was discussed with the patient and/or family members who expressed understanding and agreement. All questions were answered. I explained to the patient that if personally reviewed the x-ray images and report which shows that she has a retained foreign body in the esophagus and a small foreign body within the small bowel. The chest pain that she is experiencing is likely due to the retained foreign body and my goal is to perform an EGD to remove the foreign body. I also explained to the patient that the secondary foreign body that appears to be within the small bowel will be observed by performing abdominal x-rays over the next day or 2 to see that it passes or makes its way into the colon. If we have images that shows no progression of the object in there would be concern for possible or ventral bowel obstruction and she will likely need a surgical procedure at that time. My hope is that the object continues to make its way towards the colon and then will pass without difficult. Discussed with the reese jane and she agrees with the above plan. Qualifiers: Encounter type: subsequent encounter Qualified Code(s): T18.9XXD - Foreign body of alimentary tract, part unspecified, subsequent encounter (2) Dysphagia Status: Acute The assessment and plan as outlined above was discussed with the patient and/or family members who expressed understanding and agreement. All questions were answered. See above for overall recommendations. Qualifiers: Dysphagia type: esophageal phase Qualified Code(s): R13.10 - Dysphagia, unspecified History of Present Illness Chief complaint: Dysphagia (swallowed battery) HPI: Ms. Rodriguez is a 43 year old female the past medical history significant for hypothyroidism, DVT, and pulmonary embolism, who states that she was climbing a ladder to change the battery and a light fixture at her trailer and had to replace the batteries in her mouth and she states that her dentures slipped and he swallowed the batteries approximately at 11 AM today. She admits to midsternal chest pain and some discomfort at the level of the epigastrium. She denies any vomiting symptoms and states that she normally has a bowel movement once per day but takes multiple medications to assist with bowel movements since her multiple abdominal surgeries and colostomy with reversal performed in July of this year ([place]). She last had a bowel movement yesterday that appeared normal for her. She denies any rectal bleeding and because of the swallowed battery she presents herself to [facility] emergency room for further evaluation. Past Med Surg Social Fam HX - Past Medical History Medical history: DVT, pulmonary embolus, thyroid disease, other Additional medical history: DDD Psychiatric history: no psych history - Past Surgical History Surgical History: appendectomy, cholecystectomy, colectomy, colostomy (Eventual colostomy reversal performed in [place] July 2018), hysterectomy, knee replacement, orthopedic, other Additional surgical history: sections of bowel remove, colostomy - Social History Smoking Status: Current every day smoker Smokeless Tobacco Status: No Alcohol use: none Drug use: none - Family History Father Living Status: Still Living Hx Family Cardiac Disorders: Yes (cardiomyopathy, CHF) Medications and Allergies Levothyroxine Sodium [Levoxyl] 125 mcg PO QAM 01/16/18 [History] Polyethylene Glycol 3350 [MiraLax bowel prep] 17 gm PO DAILY 01/16/18 [History] Omeprazole [PriLOSEC] 40 mg PO DAILY #20 cap 09/21/18 [Rx] Sennosides [Senokot] 8.6 mg PO DAILY 09/21/18 [History] Docusate [Colace] 100 mg PO DAILY 10/01/18 [History] Echinacea 500 mg PO DAILY 10/01/18 [History] Glucosamn/Condroitn/C/Mn/Henderson [Cvs Glucosamine Chondroit Cplt] 1 tab PO DAILY 10/01/18 [History] Thiamine HCl [Vitamin B-1] 100 mg PO DAILY 10/01/18 [History] Sucralfate [Carafate] 1 gm PO QIDAC 30 Days #120 tablet 10/02/18 [Rx] Allergy/AdvReac Type Severity Reaction Status Date / Time aspirin [ASA] Allergy Hives Verified 09/21/18 08:25 Iodinated Contrast- Oral and Allergy Hives Verified 09/21/18 08:25 IV Dye ketorolac [From Toradol] Allergy Hives Verified 09/21/18 08:25 prochlorperazine Allergy Hives Verified 09/21/18 08:25 [From Compazine] Review of Systems All systems PM: reviewed and no additional remarkable complaints except as stated All systems PM: The remainder of the systems were reviewed and are negative General Surgery Exam Initial Vital Signs Temp Pulse Resp BP Pulse Ox 98.3 F 112 18 118/73 100 09/30/18 14:49 09/30/18 14:49 09/30/18 14:49 09/30/18 14:49 09/30/18 14:49 - General physical appearance well nourished, moderate distress - Eyes PERRL, normal ocular movement - Respiratory normal expansion, normal respiratory effort, clear to auscultation - Cardiovascular Cardiovascular exam: Present: RRR, no murmurs/rubs/gallops - Abdomen Abdomen general surgery: Present: bowel sounds present, soft, tender (Tenderness noted in the epigastrium area) - Neurologic Present: CN 2-12 grossly intact - Musculoskeletal Present: other (No clubbing, cyanosis, or edema) - Psychiatric Psychiatric general surgery: Present: A&Ox3, oriented to person, oriented to place, other (Appears anxious) Results - Labs 10/01/18 02:05 10/01/18 02:05 All other labs normal. - Imaging Chest x-ray: report reviewed, image reviewed (3 images reviewed by me which shows a disc-like object that appears to be in the center portion of the chest) Abdominal x-ray: report reviewed, image reviewed (Images and report reviewed by me which demonstrates a disc-like image in the center portion of the abdomen.)
[2018-09-30 16:15] LABS: Activated Partial Thrombo Time 32.4 Seconds (26.0-36.0)
[2018-09-30 16:24] LABS: Alanine Aminotransferase 15 Units/L (7-52); Albumin 4.1 g/dL (3.5-5.7); Albumin/Globulin Ratio 1.6 (1.1-2.2); Alkaline Phosphatase 119 Units/L (34-104); Aspartate Amino Transferase 17 Units/L (13-39); BUN/Creatinine Ratio 13 (6-26); Bilirubin,Total 0.3 mg/dL (0.3-1.0); Blood Urea Nitrogen 10 mg/dL (6-20); Calcium 9.4 mg/dL (8.6-10.3); Carbon Dioxide 29 mEq/L (23-29); Chloride 102 mEq/L (98-107); Globulin 2.5 g/dL (2.4-3.5); Glucose 88 mg/dL (70-105); Osmolality,Calculated 280 (280-300); Potassium 3.7 mEq/L (3.5-5.1); Sodium 136 mEq/L (136-145); Total Protein 6.6 g/dL (6.4-8.9); eGFR For African Americans > 60 (> 60); eGFR For Non-African Americans > 60 (> 60)
--- NOTE | 2018-09-30 16:30 | Anesthesia Evaluation PreOp ---
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 RESOURCE STATISTICIAN History: Denies Any Significant HX Other Medical History: Thyroid, GERD Anesthesia History: No Prior Anesthetic Complications, Past Anesthesia (hysterectomy) Alcohol Use: none Drug use: none Medications and Allergies Levothyroxine Sodium [Levoxyl] 125 mcg PO QAM 01/16/18 [History] Polyethylene Glycol 3350 [MiraLax bowel prep] 17 gm PO DAILY PRN 01/16/18 [History] Cannabidiol (Cbd) Extract [Epidiolex] 500 mg PO BID 09/21/18 [History] Diphenhydramine HCl [Ez Nite Sleep] 2 cap PO HS 09/21/18 [History] Omeprazole [PriLOSEC] 40 mg PO DAILY #20 cap 09/21/18 [Rx] Sennosides [Senokot] 8.6 mg PO DAILY 09/21/18 [History] Allergy/AdvReac Type Severity Reaction Status Date / Time aspirin [ASA] Allergy Hives Verified 09/21/18 08:25 Iodinated Contrast- Oral and Allergy Hives Verified 09/21/18 08:25 IV Dye ketorolac [From Toradol] Allergy Hives Verified 09/21/18 08:25 prochlorperazine Allergy Hives Verified 09/21/18 08:25 [From Compazine] - Meds/Allergy Pre-op Review Medications Reviewed: Yes Allergies Reviewed: Yes Beta Blockers on Current Med List: No Anesthesia Results - Labs 09/30/18 15:51 09/30/18 15:51 - Imaging EKG: report reviewed (09/21/[address] elev, probable normal early repol pattern) Anesthesia Exam Vital Signs/O2 Sat, Most Current Temp Pulse Resp BP Pulse Ox 98.3 F 105 24 132/84 99 09/30/18 14:49 09/30/18 16:07 09/30/18 16:07 09/30/18 16:07 09/30/18 16:07 Height: 5'7''/1.7m Weight: 176 lbs/80 kg NPO (# of Hours): 8 Pain Scale: 0 Pain Scale Used: Numeric (1 - 10) - HEENT Pupil (Motor): EOMI Mallampati: II Teeth: Edentulous Oral Opening: Greater than 3 - HUMAN RESOURCE STATISTICIAN LOC: Oriented HUMAN RESOURCE STATISTICIAN Motor: Normal RUE, Normal LUE, Normal RLE, Normal LLE, Normal Face HUMAN RESOURCE STATISTICIAN Sensory: Normal: RUE, LUE, RLE, LLE, Face - Cardiac Rhythm: Regular Murmur: None - Pulmonary Breath Sounds: bilateral Clear Respiratory Effort: Symmetrical Anesthesia Assess/Plan ASA Score: 2, E Level of consciousness: Cooperative, Oriented, Tranquil Anesthetic Plan: General Monitoring Plan: Standard Monitors Recovery Plan: PACU
--- NOTE | 2018-09-30 16:31 | Emergency Department Note ---
Disposition Clinical Impression: Esophageal foreign body Qualifiers: Encounter type: initial encounter Qualified Code(s): T18.108A - Unspecified foreign body in esophagus causing other injury, initial encounter Foreign body in stomach Qualifiers: Encounter type: initial encounter Qualified Code(s): T18.2XXA - Foreign body in stomach, initial encounter Disposition: Admitted As Inpatient Condition: Good Time of Disposition: 16:32 General Adult HPI - General Chief complaint: ED Abdominal Pain Stated complaint: "burning abd/chest pain" Time Seen by Provider: 09/30/18 14:54 Source: patient Limitations: no limitations - History of Present Illness Pain Scale: 9 - Related Data Home Medications Medication Instructions Recorded Confirmed Levothyroxine Sodium [Levoxyl] 125 mcg PO QAM 01/16/18 09/21/18 Polyethylene Glycol 3350 [MiraLax 17 gm PO DAILY PRN 01/16/18 09/21/18 bowel prep] Cannabidiol (Cbd) Extract 500 mg PO BID 09/21/18 09/21/18 [Epidiolex] Diphenhydramine HCl [Ez Nite Sleep] 2 cap PO HS 09/21/18 09/21/18 Sennosides [Senokot] 8.6 mg PO DAILY 09/21/18 09/21/18 Previous Rx's Medication Instructions Recorded Omeprazole [PriLOSEC] 40 mg PO DAILY #20 cap 09/21/18 Allergies Allergy/AdvReac Type Severity Reaction Status Date / Time aspirin [ASA] Allergy Hives Verified 09/21/18 08:25 Iodinated Contrast- Oral and Allergy Hives Verified 09/21/18 08:25 IV Dye ketorolac [From Toradol] Allergy Hives Verified 09/21/18 08:25 prochlorperazine Allergy Hives Verified 09/21/18 08:25 [From Compazine] Past Medical History - Past Medical History Medical history: 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, pulmonary embolus, thyroid disease, other Surgical history: Reports: appendectomy, cholecystectomy, colectomy, colostomy (Eventual colostomy reversal performed in [place] July 2018), hysterectomy, knee replacement, orthopedic, other Psychiatric history: Reports: no psych history [employer]ER history: Reports: other - Social History Smoking Status: Current every day smoker Smokeless Tobacco Status: No Alcohol use: Reports: none Drug use: Reports: none Physical Exam - General Limitations: no limitations General appearance: alert, in no apparent distress Course Vital Signs Temperature 98.3 F 09/30/18 14:49 Pulse Rate 112 09/30/18 14:49 Respiratory Rate 18 09/30/18 14:49 Blood Pressure 118/73 09/30/18 14:49 O2 Sat by Pulse Oximetry 100 09/30/18 14:49 Temperature 98.3 F 09/30/18 14:49 Pulse Rate 105 09/30/18 16:07 Respiratory Rate 24 09/30/18 16:07 Blood Pressure 132/84 09/30/18 16:07 O2 Sat by Pulse Oximetry 99 09/30/18 16:07 Oxygen Delivery Oxygen Delivery Room Air Medical Decision Making - Lab Data Result diagrams: 09/30/18 15:51 09/30/18 15:51 Lab Results 09/30/18 09/30/18 09/30/18 Range/Units 15:48 15:51 15:51 WBC 9.7 (4.3-11.1) K/mcL RBC 3.97 (3.82-4.97) M/mcL Hgb 11.8 (11.5-15.4) g/dL Hct 36.0 (35.3-44.9) % MCV 90.7 (83.0-100.0) fL MCH 29.7 (28.0-33.3) pg MCHC 32.8 (31.6-35.5) g/dL RDW 12.5 (11.5-14.5) % Plt Count 329 (140-400) K/mcL MPV 9.6 (9.4-12.4) fL Immature Gran % 0.4 (0-4) % Seg Neutrophils % 78.3 % Lymphocytes % 14.1 % Monocytes % 6.2 % Eosinophils % 0.8 % Basophils % 0.2 % Neutrophils # 7.6 (1.6-8.9) K/mcL Lymphocytes # 1.4 (0.6-4.6) K/mcL Monocytes # 0.6 (0.0-1.3) K/mcL Eosinophils # 0.1 (0.0-0.6) K/mcL Basophils # 0.0 (0.0-0.2) K/mcL PT 11.4 (9.4-12.1) Seconds INR 1.0 APTT 32.4 (26.0-36.0) Seconds Sodium (136-145) mEq/L Potassium (3.5-5.1) mEq/L Chloride (98-107) mEq/L Carbon Dioxide (23-29) mEq/L BUN (6-20) mg/dL Creatinine (0.60-1.20) mg/dL Est GFR ( Amer) (> 60) Est GFR (Non-Af Amer) (> 60) BUN/Creatinine Ratio (6-26) Glucose (70-105) mg/dL Calculated Osmolality (280-300) Lactic Acid 0.7 (0.5-2.2) mmol/L Calcium (8.6-10.3) mg/dL Total Bilirubin (0.3-1.0) mg/dL AST (13-39) Units/L ALT (7-52) Units/L Alkaline Phosphatase (34-104) Units/L Serum Total Protein (6.4-8.9) g/dL Albumin (3.5-5.7) g/dL Globulin (2.4-3.5) g/dL Albumin/Globulin Ratio (1.1-2.2) 09/30/18 Range/Units 15:51 WBC (4.3-11.1) K/mcL RBC (3.82-4.97) M/mcL Hgb (11.5-15.4) g/dL Hct (35.3-44.9) % MCV (83.0-100.0) fL MCH (28.0-33.3) pg MCHC (31.6-35.5) g/dL RDW (11.5-14.5) % Plt Count (140-400) K/mcL MPV (9.4-12.4) fL Immature Gran % (0-4) % Seg Neutrophils % % Lymphocytes % % Monocytes % % Eosinophils % % Basophils % % Neutrophils # (1.6-8.9) K/mcL Lymphocytes # (0.6-4.6) K/mcL Monocytes # (0.0-1.3) K/mcL Eosinophils # (0.0-0.6) K/mcL Basophils # (0.0-0.2) K/mcL PT (9.4-12.1) Seconds INR APTT (26.0-36.0) Seconds Sodium 136 (136-145) mEq/L Potassium 3.7 (3.5-5.1) mEq/L Chloride 102 (98-107) mEq/L Carbon Dioxide 29 (23-29) mEq/L BUN 10 (6-20) mg/dL Creatinine 0.79 (0.60-1.20) mg/dL Est GFR ( Amer) > 60 (> 60) Est GFR (Non-Af Amer) > 60 (> 60) BUN/Creatinine Ratio 13 (6-26) Glucose 88 (70-105) mg/dL Calculated Osmolality 280 (280-300) Lactic Acid (0.5-2.2) mmol/L Calcium 9.4 (8.6-10.3) mg/dL Total Bilirubin 0.3 (0.3-1.0) mg/dL AST 17 (13-39) Units/L ALT 15 (7-52) Units/L Alkaline Phosphatase 119 H (34-104) Units/L Serum Total Protein 6.6 (6.4-8.9) g/dL Albumin 4.1 (3.5-5.7) g/dL Globulin 2.5 (2.4-3.5) g/dL Albumin/Globulin Ratio 1.6 (1.1-2.2) Attestation Statement - Attestation Attestation: I reviewed the residents documentation and agree with the residents assessment and plan of care. I have personally had face to face time with the patient. (Brief History, Brief Exam, and MDM) I personally supervised and was present for the espinoza/critical portions of the following procedures completed by the resident: EKG 43 year old female presents to the ED with accidentally swallowing watch batteries that she was carrying it in her mouth as she was climbinng a ladder to change her lights batteries outside. Patient felt her dentures readusting which caused her to accidentally swallow the batteries. Isma has two batteries tht she swallowed and it apeprs that one is in the esophagus and one in the distal stomch. Discussed case with endoscopy Dr. Wilkinson who will take her back to the endo suites for removal.
[2018-09-30] MEDS ORDERED: Lidocaine -MPF 2% 2 ML VIAL ONE (16:43)
[2018-09-30] MEDS ORDERED: *HR* Midazolam HCl 2 MG/2 ML VIAL ONE (16:43)
[2018-09-30] MEDS ORDERED: Lidocaine -MPF 4% 5 ML AMPUL ONE (16:43)
[2018-09-30] MEDS ORDERED: *HR* Succinylcholine 200 MG/10 ML VIAL IVP ONE (16:43)
[2018-09-30] MEDS ORDERED: *HR* FentaNYL (PF) 100 MCG/2 ML VIAL ONE (16:43)
[2018-09-30] MEDS ORDERED: *HR* Propofol 200 MG/20 ML VIAL IVP ONE (16:43)
--- NOTE | 2018-09-30 16:44 | Emergency Department Note ---
Disposition Clinical Impression: Esophageal foreign body Qualifiers: Encounter type: initial encounter Qualified Code(s): T18.108A - Unspecified foreign body in esophagus causing other injury, initial encounter Foreign body in stomach Qualifiers: Encounter type: initial encounter Qualified Code(s): T18.2XXA - Foreign body in stomach, initial encounter Disposition: Admitted As Inpatient Condition: Good Time of Disposition: 15:45 General Adult HPI - General Chief complaint: ED Abdominal Pain Stated complaint: "burning abd/chest pain" Time Seen by Provider: 09/30/18 14:54 Source: patient Limitations: no limitations Nursing Notes Reviewed: Yes Vital Signs Reviewed: Yes - History of Present Illness HPI Narrative: Ms. Rodriguez is a 43 yo woman who came to the ED after swallowing 2 watch batteries approximately 4 hours prior. She was climbing up a ladder to replace the batteries in a trail cam when her dentures came loose and as she attempted to work them back into place she swallowed the batteries inadvertently. She was asymptomatic on presentation. PMH significant for colostomy s/p closure. No history of SI/SA. Pain Scale: 9 - Related Data Home Medications Medication Instructions Recorded Confirmed Levothyroxine Sodium [Levoxyl] 125 mcg PO QAM 01/16/18 09/21/18 Polyethylene Glycol 3350 [MiraLax 17 gm PO DAILY PRN 01/16/18 09/21/18 bowel prep] Cannabidiol (Cbd) Extract 500 mg PO BID 09/21/18 09/21/18 [Epidiolex] Diphenhydramine HCl [Ez Nite Sleep] 2 cap PO HS 09/21/18 09/21/18 Sennosides [Senokot] 8.6 mg PO DAILY 09/21/18 09/21/18 Previous Rx's Medication Instructions Recorded Omeprazole [PriLOSEC] 40 mg PO DAILY #20 cap 09/21/18 Allergies Allergy/AdvReac Type Severity Reaction Status Date / Time aspirin [ASA] Allergy Hives Verified 09/21/18 08:25 Iodinated Contrast- Oral and Allergy Hives Verified 09/21/18 08:25 IV Dye ketorolac [From Toradol] Allergy Hives Verified 09/21/18 08:25 prochlorperazine Allergy Hives Verified 09/21/18 08:25 [From Compazine] All systems ED: reviewed and negative except as stated. 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 - Social History Smoking Status: Current every day smoker Smokeless Tobacco Status: No Alcohol use: Reports: none Drug use: Reports: none Physical Exam PE Gen: Well appearing on initial presentation, later writhing 2/2 pain; AOx3 ENT: No lymphadenopathy, no oropharyngeal edema or erythema Card: Regular rhythm and rate w/ mild tachycardia Resp: Lungs clear bilaterally GI: Abdomen soft, nondistended, tender to palpation diffusely : No suprapubic tenderness or distention MSK: Normal ROM Neuro: CNI-CXII intact, no tremor Psych: Appropriate affect, responsive, pleasant - General Limitations: no limitations General appearance: alert, in no apparent distress Course Course Narrative: Patient transferred to endoscopy once imaging confirmed presence of 2 watch batteries (one within esophagus, one within bowel, possibly SI). She developed acute pain immediately prior to endoscopy, and was given dilaudid. VS remained stable and WNL apart from tachycardia (103). Vital Signs Temperature 98.3 F 09/30/18 14:49 Pulse Rate 112 09/30/18 14:49 Respiratory Rate 18 09/30/18 14:49 Blood Pressure 118/73 09/30/18 14:49 O2 Sat by Pulse Oximetry 100 09/30/18 14:49 Temperature 98.3 F 09/30/18 14:49 Pulse Rate 105 09/30/18 16:07 Respiratory Rate 24 09/30/18 16:07 Blood Pressure 132/84 09/30/18 16:07 O2 Sat by Pulse Oximetry 99 09/30/18 16:07 Oxygen Delivery Oxygen Delivery Room Air Medical Decision Making - Medical Records Medical records reviewed: Yes I reviewed the patient's medical records. - Lab Data Lab results reviewed: Yes I reviewed the patient's lab results. Result diagrams: 09/30/18 15:51 09/30/18 15:51 Lab Results 09/30/18 09/30/18 09/30/18 Range/Units 15:48 15:51 15:51 WBC 9.7 (4.3-11.1) K/mcL RBC 3.97 (3.82-4.97) M/mcL Hgb 11.8 (11.5-15.4) g/dL Hct 36.0 (35.3-44.9) % MCV 90.7 (83.0-100.0) fL MCH 29.7 (28.0-33.3) pg MCHC 32.8 (31.6-35.5) g/dL RDW 12.5 (11.5-14.5) % Plt Count 329 (140-400) K/mcL MPV 9.6 (9.4-12.4) fL Immature Gran % 0.4 (0-4) % Seg Neutrophils % 78.3 % Lymphocytes % 14.1 % Monocytes % 6.2 % Eosinophils % 0.8 % Basophils % 0.2 % Neutrophils # 7.6 (1.6-8.9) K/mcL Lymphocytes # 1.4 (0.6-4.6) K/mcL Monocytes # 0.6 (0.0-1.3) K/mcL Eosinophils # 0.1 (0.0-0.6) K/mcL Basophils # 0.0 (0.0-0.2) K/mcL PT 11.4 (9.4-12.1) Seconds INR 1.0 APTT 32.4 (26.0-36.0) Seconds Sodium (136-145) mEq/L Potassium (3.5-5.1) mEq/L Chloride (98-107) mEq/L Carbon Dioxide (23-29) mEq/L BUN (6-20) mg/dL Creatinine (0.60-1.20) mg/dL Est GFR ( Amer) (> 60) Est GFR (Non-Af Amer) (> 60) BUN/Creatinine Ratio (6-26) Glucose (70-105) mg/dL Calculated Osmolality (280-300) Lactic Acid 0.7 (0.5-2.2) mmol/L Calcium (8.6-10.3) mg/dL Total Bilirubin (0.3-1.0) mg/dL AST (13-39) Units/L ALT (7-52) Units/L Alkaline Phosphatase (34-104) Units/L Serum Total Protein (6.4-8.9) g/dL Albumin (3.5-5.7) g/dL Globulin (2.4-3.5) g/dL Albumin/Globulin Ratio (1.1-2.2) 09/30/18 Range/Units 15:51 WBC (4.3-11.1) K/mcL RBC (3.82-4.97) M/mcL Hgb (11.5-15.4) g/dL Hct (35.3-44.9) % MCV (83.0-100.0) fL MCH (28.0-33.3) pg MCHC (31.6-35.5) g/dL RDW (11.5-14.5) % Plt Count (140-400) K/mcL MPV (9.4-12.4) fL Immature Gran % (0-4) % Seg Neutrophils % % Lymphocytes % % Monocytes % % Eosinophils % % Basophils % % Neutrophils # (1.6-8.9) K/mcL Lymphocytes # (0.6-4.6) K/mcL Monocytes # (0.0-1.3) K/mcL Eosinophils # (0.0-0.6) K/mcL Basophils # (0.0-0.2) K/mcL PT (9.4-12.1) Seconds INR APTT (26.0-36.0) Seconds Sodium 136 (136-145) mEq/L Potassium 3.7 (3.5-5.1) mEq/L Chloride 102 (98-107) mEq/L Carbon Dioxide 29 (23-29) mEq/L BUN 10 (6-20) mg/dL Creatinine 0.79 (0.60-1.20) mg/dL Est GFR ( Amer) > 60 (> 60) Est GFR (Non-Af Amer) > 60 (> 60) BUN/Creatinine Ratio 13 (6-26) Glucose 88 (70-105) mg/dL Calculated Osmolality 280 (280-300) Lactic Acid (0.5-2.2) mmol/L Calcium 9.4 (8.6-10.3) mg/dL Total Bilirubin 0.3 (0.3-1.0) mg/dL AST 17 (13-39) Units/L ALT 15 (7-52) Units/L Alkaline Phosphatase 119 H (34-104) Units/L Serum Total Protein 6.6 (6.4-8.9) g/dL Albumin 4.1 (3.5-5.7) g/dL Globulin 2.5 (2.4-3.5) g/dL Albumin/Globulin Ratio 1.6 (1.1-2.2) - Radiology Data Radiology results reviewed: Yes I reviewed the patient's radiology results. KUB X-Ray 09/30/18 00:00 IMPRESSION: Radiopaque foreign body within the mid abdomen. Appearance is suggestive of a button type battery and emergent removal is recommended. D/ / 09/30/2018 15:46:17 Toro Staley MD / randi Interpreting Provider: Toro Staley MD Chest X-Ray 09/30/18 14:58 IMPRESSION: Radiopaque foreign body compatible with a watch battery projecting over the mediastinum, likely within the intrathoracic esophagus. D/ / Madyson Mcnally Cha, MD / Madyson Mcnally Cha, MD Interpreting Provider: Madyson Mcnally Cha, MD
[2018-09-30] MEDS ORDERED: Dexamethasone 4 MG/ML VIAL ONE (17:18)
[2018-09-30] MEDS ORDERED: *HR* FentaNYL PATCH 50 MCG PATCH TD SCH (17:45)
[2018-09-30] MEDS: *HR* HYDROmorphone 2 MG/ML SYRINGE IVP PRN ×4 (18:00→18:15)
[2018-09-30] MEDS ORDERED: *HR* HYDROmorphone 2 MG/ML SYRINGE ONE (18:00)
--- NOTE | 2018-09-30 18:44 | Anesthesia Evaluation Post Op ---
Date of Encounter: 09/30/18 Time of Encounter: 18:43 - Vital Signs Vital Signs: Vital Signs/O2 Sat, Most Current Temp Pulse Resp BP Pulse Ox 98.7 F 76 16 113/52 98 09/30/18 18:29 09/30/18 18:29 09/30/18 18:29 09/30/18 18:29 09/30/18 18:29 - Lungs Lungs: Clear Ascult./Percussion - Airway Airway: Non-obstructed - Cardiovascular Regular Rate - Mental Status Mental Status: Asleep with brisk response to light stimulation - Pain Pain Scale: 6 Pain Scale used: Numeric (1 - 10) - Nausea Vomiting Nausea Vomiting: Not Present - Hydration Hydration: NPO, Has not voided - Discharge PostOp Status: Transfer Patient to floor
[2018-09-30] MEDS: *HR* Heparin 5,000 UNIT/ML VIAL SQ SCH (20:12)
[2018-09-30] MEDS: 0.9 % Sodium Chloride 1,000 ML IVC SCH (20:12)
[2018-09-30] MEDS: Morphine Sulfate Oral CONC 10 MG/0.5 ML ORAL.SYG SL PRN (20:12)
[2018-09-30] MEDS: Nicotine 21 MG PATCH.TD24 TD SCH (20:13)
[2018-10-01] MEDS: Morphine Sulfate Oral CONC 10 MG/0.5 ML ORAL.SYG SL PRN ×6 (00:29→22:14)
[2018-10-01 02:52] LABS: Basophils % 0.1 %; Hematocrit 35.6 % (35.3-44.9); Hemoglobin 11.6 g/dL (11.5-15.4); Immature Granulocytes % 0.4 % (0-4); Lymphocytes # 0.4 K/mcL (0.6-4.6); Lymphocytes % 4.3 %; Mean Corpuscular HGB Conc 32.6 g/dL (31.6-35.5); Monocytes # 0.1 K/mcL (0.0-1.3); Monocytes % 1.2 %; Neutrophils # 8.4 K/mcL (1.6-8.9); Platelet Count 306 K/mcL (140-400); Red Blood Count 3.87 M/mcL (3.82-4.97); Red Cell Distribution Width 12.3 % (11.5-14.5)
[2018-10-01 03:09] LABS: BUN/Creatinine Ratio 14 (6-26); Blood Urea Nitrogen 9 mg/dL (6-20); Calcium 8.9 mg/dL (8.6-10.3); Carbon Dioxide 26 mEq/L (23-29); Chloride 104 mEq/L (98-107); Glucose 156 mg/dL (70-105); Osmolality,Calculated 290 (280-300); Potassium 4.3 mEq/L (3.5-5.1); Sodium 139 mEq/L (136-145); eGFR For African Americans > 60 (> 60); eGFR For Non-African Americans > 60 (> 60)
[2018-10-01] MEDS: 0.9 % Sodium Chloride 1,000 ML IVC SCH ×3 (04:13→22:15)
[2018-10-01] MEDS: *HR* Heparin 5,000 UNIT/ML VIAL SQ SCH ×2 (06:24→18:01)
[2018-10-01] MEDS: Nicotine 21 MG PATCH.TD24 TD SCH (07:51)
[2018-10-01] MEDS: Pantoprazole 40 MG VIAL IVP SCH (07:52)
--- NOTE | 2018-10-01 14:05 | AcuteCareSurgery Progress Note ---
Date of Encounter: 10/01/18 Time of Encounter: 14:03 - Assessment and Plan (1) Swallowed foreign body Status: Resolved I splayed to the patient that we were successfully able to remove the esophageal foreign body. She will have some signs of discomfort due to the inflammatory process that is still healing at the midportion of the esophagus. The abdominal x-ray shows that the battery is migrating and might be in the right upper quadrant within the colon. Will repeat the abdominal x-ray tomorrow. Will allow her to have clears and will start stool softeners as well. If the battery appears to definitively be within the colon then we may consider advancement of diet and consideration for discharge home. Qualifiers: Encounter type: subsequent encounter Qualified Code(s): T18.9XXD - Foreign body of alimentary tract, part unspecified, subsequent encounter (2) Dysphagia Status: Acute Qualifiers: Dysphagia type: esophageal phase Qualified Code(s): R13.10 - Dysphagia, unspecified Subjective Patient reports: other (Agenesis she is having some bloating and abdominal pain. She also states she is having some chest pain but it is not as severe as it was yesterday. Denies any nausea and has been passing flatus but no bowel movements.) Objective Vital Signs - Last 8 Hours Temp Pulse Resp BP Pulse Ox 10/01/18 11:34 98.2 F 71 17 96/59 99 10/01/18 07:45 96 10/01/18 07:26 97.7 F 69 19 97/64 96 Intake and Output 09/30/18 10/01/18 10/01/18 23:59 07:59 15:59 Intake Total 1000 / 1000 1450 / 2000 550 / 2000 Output Total 1000 / 1000 Balance 1000 / 1000 450 / 1000 550 / 1000 Intake: IV Fluids 1000 / 1000 1450 / 2000 550 / 2000 0.9 % Sodium Chloride 1,000 ML 1000 / 1000 1450 / 2000 550 / 2000 @ 125 mls/hr IVC .Q8H SOHAIL Rx#: [id number] Oral 0 / 0 0 / 0 0 / 0 Output: Urine 1000 / 1000 Other: Meal NPO Percent of Meal Consumed 0% # Voids 1 Weight 86.2 kg Blood Glucose* 129 100 Patient Weight 10/01/18 23:59 Weight 86.2 kg - General physical appearance well nourished, no distress - Abdomen Abdomen: Present: soft, tender - Labs 10/01/18 02:05 10/01/18 02:05 Diabetes panel 09/30/18 10/01/18 Range/Units 15:51 02:05 Sodium 136 139 (136-145) mEq/L Potassium 3.7 4.3 (3.5-5.1) mEq/L Chloride 102 104 (98-107) mEq/L Carbon Dioxide 29 26 (23-29) mEq/L BUN 10 9 (6-20) mg/dL Creatinine 0.79 0.65 (0.60-1.20) mg/dL Glucose 88 156 H (70-105) mg/dL Calcium 9.4 8.9 (8.6-10.3) mg/dL AST 17 (13-39) Units/L ALT 15 (7-52) Units/L Alkaline Phosphatase 119 H (34-104) Units/L Albumin 4.1 (3.5-5.7) g/dL Calcium panel 09/30/18 10/01/18 Range/Units 15:51 02:05 Calcium 9.4 8.9 (8.6-10.3) mg/dL Albumin 4.1 (3.5-5.7) g/dL Pituitary panel 09/30/18 10/01/18 Range/Units 15:51 02:05 Sodium 136 139 (136-145) mEq/L Potassium 3.7 4.3 (3.5-5.1) mEq/L Chloride 102 104 (98-107) mEq/L Carbon Dioxide 29 26 (23-29) mEq/L BUN 10 9 (6-20) mg/dL Creatinine 0.79 0.65 (0.60-1.20) mg/dL Glucose 88 156 H (70-105) mg/dL Calcium 9.4 8.9 (8.6-10.3) mg/dL Adrenal panel 09/30/18 10/01/18 Range/Units 15:51 02:05 Sodium 136 139 (136-145) mEq/L Potassium 3.7 4.3 (3.5-5.1) mEq/L Chloride 102 104 (98-107) mEq/L Carbon Dioxide 29 26 (23-29) mEq/L BUN 10 9 (6-20) mg/dL Creatinine 0.79 0.65 (0.60-1.20) mg/dL Glucose 88 156 H (70-105) mg/dL Calcium 9.4 8.9 (8.6-10.3) mg/dL Total Bilirubin 0.3 (0.3-1.0) mg/dL AST 17 (13-39) Units/L ALT 15 (7-52) Units/L Alkaline Phosphatase 119 H (34-104) Units/L Albumin 4.1 (3.5-5.7) g/dL Consult Discharge Plan - Plan Instructions: Esophageal Foreign Body (ED) Additional Instructions: Take colace twice daily. Take miralax daily until you are having daily bowel movements that are not painful. Observe for passage of the battery. Take Carafate before meals and at bedtime for one month. You can take Tylenol for pain if needed. Avoid spicy or hot foods until esophagus is less painful. Follow-up with your PCP in one week; if you did not observe the battery in your stool, you may need a repeat KUB. This can be determined by your PCP. Return to the ER if you have chest pain, shortness of breath, or sudden onset of abdominal pain. Referrals: Jessika Cline PASTEURIZER [Primary Care Provider] - (1 week Web request entered. Office will call patient with date and time of appointment. Thank you) Prescriptions: Sucralfate [Carafate] 1 gm PO QIDAC 30 Days #120 tablet
[2018-10-02] MEDS: Morphine Sulfate Oral CONC 10 MG/0.5 ML ORAL.SYG SL PRN ×3 (02:33→11:50)
[2018-10-02] MEDS: *HR* Heparin 5,000 UNIT/ML VIAL SQ SCH (05:39)
[2018-10-02] MEDS: 0.9 % Sodium Chloride 1,000 ML IVC SCH (05:39)
[2018-10-02] MEDS: Nicotine 21 MG PATCH.TD24 TD SCH (07:47)
[2018-10-02] MEDS: Pantoprazole 40 MG VIAL IVP SCH (07:47)
[2018-10-02 11:03] VITALS: BP 96/57
--- NOTE | 2018-10-02 11:09 | Discharge Summary ---
<TachoNanci Hernandez - Last Filed: 10/02/18 11:06> Date of Encounter: 10/02/18 Time of Encounter: 11:06 - Discharge Diagnosis (1) Ingestion of button battery Priority: Primary Status: Acute Qualifiers: Encounter type: initial encounter Qualified Code(s): T18.9XXA - Foreign body of alimentary tract, part unspecified, initial encounter (2) Esophageal foreign body Priority: Primary Status: Resolved Qualifiers: Encounter type: initial encounter Qualified Code(s): T18.108A - Unspecified foreign body in esophagus causing other injury, initial encounter General Surgery Exam Initial Vital Signs Temp Pulse Resp BP Pulse Ox 98.3 F 112 18 118/73 100 09/30/18 14:49 09/30/18 14:49 09/30/18 14:49 09/30/18 14:49 09/30/18 14:49 - General physical appearance well nourished, no distress - Neck trachea midline - Respiratory normal expansion, normal respiratory effort - Cardiovascular Cardiovascular exam: Present: RRR - Abdomen Abdomen general surgery: Present: bowel sounds present, soft, non tender - Integumentary Integumentary general surgery: Present: warm and dry - Neurologic Present: normal sensation - Musculoskeletal Present: normal posture - Psychiatric Psychiatric general surgery: Present: A&Ox3 - Hospital Course Hospital course: Ms. Rodriguez is a 43 year old female who presented on 09/30/2018 after accidental ingestion of 2 button batteries. On 09/30/2018 she underwent endoscopy at which time a flat watch battery was found in the middle 3rd of the esophagus (approximately 20 cm from the incisors) and removal was accomplished with rat toothed forceps. The stomach was normal, the duodenum was normal, the esophagus was inflamed. The 2nd button battery was followed through the G.I. tract via KUB however on 10/02/2018 the position was indeterminate. A CT scan of the abdomen and pelvis without contrast was completed and noted the battery was in the transverse colon. Her abdominal pain is controlled. We will begin discharge planning to home with a follow-up with her PCP in approximately one week. She is advised to observe her stool for the passage of the battery and if in one week she has not seen the battery she could possibly have need for a follow-up KUB per her PCP. - Time Spent with Patient Total time spent providing and/or coordinating discharge services: - Discharge Medications Prescriptions: New Sucralfate [Carafate] 1 gm PO QIDAC 30 Days #120 tablet Continued Polyethylene Glycol 3350 [MiraLax bowel prep] 17 gm PO DAILY Levothyroxine Sodium [Levoxyl] 125 mcg PO QAM Sennosides [Senokot] 8.6 mg PO DAILY Omeprazole [PriLOSEC] 40 mg PO DAILY #20 cap Docusate [Colace] 100 mg PO DAILY Thiamine HCl [Vitamin B-1] 100 mg PO DAILY Glucosamn/Condroitn/C/Mn/Bethel [[facility]vs Glucosamine Chondroit Cplt] 1 tab PO DAILY Echinacea 500 mg PO DAILY Home Medications: Levothyroxine Sodium [Levoxyl] 125 mcg PO QAM 01/16/18 [History] Polyethylene Glycol 3350 [MiraLax bowel prep] 17 gm PO DAILY 01/16/18 [History] Omeprazole [PriLOSEC] 40 mg PO DAILY #20 cap 09/21/18 [Rx] Sennosides [Senokot] 8.6 mg PO DAILY 09/21/18 [History] Docusate [Colace] 100 mg PO DAILY 10/01/18 [History] Echinacea 500 mg PO DAILY 10/01/18 [History] Glucosamn/Condroitn/C/Mn/[place]hel [[facility] Glucosamine Chondroit Cplt] 1 tab PO DAILY 10/01/18 [History] Thiamine HCl [Vitamin B-1] 100 mg PO DAILY 10/01/18 [History] Sucralfate [Carafate] 1 gm PO QIDAC 30 Days #120 tablet 10/02/18 [Rx] Allergies/Adverse Reactions: Allergy/AdvReac Type Severity Reaction Status Date / Time aspirin [ASA] Allergy Hives Verified 09/21/18 08:25 Iodinated Contrast- Oral and Allergy Hives Verified 09/21/18 08:25 IV Dye ketorolac [From Toradol] Allergy Hives Verified 09/21/18 08:25 prochlorperazine Allergy Hives Verified 09/21/18 08:25 [From Compazine] Date of admission: 09/30/18 16:31 Primary care physician: Jessika Cline CNP Discharging clinician: Samuel Titus APRN) Anticipated date of discharge: 10/02/18 Labs on day of discharge: Labs from last 24 hours 10/01/18 10/01/18 10/01/18 11:37 05:41 00:12 POC Glucose 100 H 129 H 156 H - Impressions ITS Impressions KUB X-Ray 09/30/18 00:00 IMPRESSION: Radiopaque foreign body within the mid abdomen. Appearance is suggestive of a button type battery and emergent removal is recommended. D/ / 09/30/2018 15:46:17 Toro Staley MD / randi Interpreting Provider: Toro Staley MD Chest X-Ray 09/30/18 14:58 IMPRESSION: Radiopaque foreign body compatible with a watch battery projecting over the mediastinum, likely within the intrathoracic esophagus. D/ / Madyson Mcnally Cha, MD / Madyson Mcnally Cha, MD Interpreting Provider: Madyson Mcnally Cha, MD X-Ray 10/01/18 07:00 IMPRESSION: 2.1 cm radiopaque foreign body in the region of the hepatic flexure. D/ / Sugey Santana MD / Sugey Santana MD Interpreting Provider: Sugey Santana MD X-Ray 10/02/18 06:00 IMPRESSION: Button type battery projects in midline abdomen; its location relative to large and small bowel is indeterminate. D/ / 10/02/2018 07:29:43 Lonnie Amador / [email or web address] Interpreting Provider: Lonnie Amador Abdomen/Pelvis CT 10/02/18 10:08 IMPRESSION: Ingested foreign body involving the transverse colon at the level of the surgical anastomosis. Nonobstructing left renal calculi. Cholecystectomy. D/ / 10/02/2018 11:00:44 Isaak Davis MD / randi Interpreting Provider: Isaak Davis MD - Patient Status Disposition: Home, Self-Care Condition: Good Functional capacity at discharge: independent ambulation Overall status at discharge: patient is progressing back to baseline - Discharge Instructions Instructions: Esophageal Foreign Body (ED) Follow Up With: Jessika Cline CNP [Primary Care Provider] - (1 week) Additional Instructions: Take colace twice daily. Take miralax daily until you are having daily bowel movements that are not painful. Observe for passage of the battery. Take Carafate before meals and at bedtime for one month. You can take Tylenol for pain if needed. Avoid spicy or hot foods until esophagus is less painful. Follow-up with your PCP in one week; if you did not observe the battery in your stool, you may need a repeat KUB. This can be determined by your PCP. Return to the ER if you have chest pain, shortness of breath, or sudden onset of abdominal pain. - Diet and Activity Activity: increase activity as tolerated Diet: advance to your usual diet <Samuel Carney - Last Filed: 10/02/18 11:44> Date of Encounter: 10/02/18 General Surgery Exam Initial Vital Signs Temp Pulse Resp BP Pulse Ox 98.3 F 112 18 118/73 100 09/30/18 14:49 09/30/18 14:49 09/30/18 14:49 09/30/18 14:49 09/30/18 14:49 - Hospital Course Hospital course: Ms. Rodriguez is a 43 year old female - Time Spent with Patient Total time spent providing and/or coordinating discharge services: Date of admission: 09/30/18 16:31 Primary care physician: Jessika Cline CNP Labs on day of discharge: Labs from last 24 hours 10/01/18 10/01/18 10/01/18 11:37 05:41 00:12 POC Glucose 100 H 129 H 156 H - Impressions ITS Impressions KUB X-Ray 09/30/18 00:00 IMPRESSION: Radiopaque foreign body within the mid abdomen. Appearance is suggestive of a button type battery and emergent removal is recommended. D/ / 09/30/2018 15:46:17 Toro Staley MD / randi Interpreting Provider: Toro Staley MD Chest X-Ray 09/30/18 14:58 IMPRESSION: Radiopaque foreign body compatible with a watch battery projecting over the mediastinum, likely within the intrathoracic esophagus. D/ / Madyson Mcnally Cha, MD / Madyson Mcnally Cha, MD Interpreting Provider: Madyson Mcnally Cha, MD X-Ray 10/01/18 07:00 IMPRESSION: 2.1 cm radiopaque foreign body in the region of the hepatic flexure. D/ / Sugey Santana MD / Sugey Santana MD Interpreting Provider: Sugey Santana MD X-Ray 10/02/18 06:00 IMPRESSION: Button type battery projects in midline abdomen; its location relative to large and small bowel is indeterminate. D/ / 10/02/2018 07:29:43 Lonnie Amador / everardo Interpreting Provider: Lonnie Amador Abdomen/Pelvis CT 10/02/18 10:08 IMPRESSION: Ingested foreign body involving the transverse colon at the level of the surgical anastomosis. Nonobstructing left renal calculi. Cholecystectomy. D/ / 10/02/2018 11:00:44 Isaak Davis MD / randi Interpreting Provider: Isaak Davis MD - Attending Attestation I have personally performed a face to face evaluation on this patient. I have reviewed and agree with the care plan. History and Exam by me shows: The patient is seen and evaluated by the acute care surgery team on morning rounds. The esophageal battery has been removed. The second battery is now in the transverse colon. This should pass without incident. Discharge and follow- up with primary care Samuel Carney MD FACS
--- NOTE | 2018-10-02 12:52 | Electrocardiograph Report ---
[place] [id number] Test Date: 2018-09-30 Pat Name: Wendi Rodriguez Department: EXAM1 Room: 3A53 Gender: F Department Helper: : 1975 Requested By: Kelli Reid Order Number: [id number] Reading MD: Brayan Foster Measurements Intervals [place] Rate: 85 P: 53 AK: 134 QRS: 50 QRSD: 95 T: 16 QT: 377 QTc: 449 Interpretive Statements Sinus rhythm Abnormal R-wave progression, early transition Electronically Signed On 10-02-2018 12:51:37 EDT by Brayan Foster
[2018-10-03] MEDS ORDERED: *HR* FentaNYL PATCH 50 MCG PATCH TD SCH (17:45)
== END 2018-10-02 13:22 | disposition home or self-care (01) ==
LOC: 3ANU 14:46 → EMEROOARM 14:46 → 3ANU 16:50
PROVIDERS: ADMIT Surgery; ATTEND Surgery

== ENCOUNTER 2018-10-04 10:30 | Observation (INO) ==
[2018-10-04 11:45] LABS: Bilirubin,Urine Negative (Negative); Blood,Urine Large (Negative); Clarity,Urine Turbid (Clear); Color,Urine Yellow (Yellow); Glucose,Urine (UA) Normal (Normal); Ketones,Urine Negative (Negative); Leukocyte Esterase,Urine Large (Negative); Nitrite,Urine Negative (Negative); Protein,Urine 100 mg/dL (Neg-Trace); Specific Gravity,Urine 1.021 (1.010-1.025); Urobilinogen,Urine Normal (Normal)
[2018-10-04 11:47] LABS: Bacteria,Urine Few per hpf (None-Few); Hyaline Casts,Urine None Seen per lpf (None-Few); RBC,Urine TNTC per hpf (0-3); Squamous Epithelial Cell,Urine Many per lpf (None-Few); WBC,Urine TNTC per hpf (0-3)
[2018-10-04] MEDS ORDERED: Morphine Sulfate 2 MG/ML SYRINGE IVP ONE (12:08)
[2018-10-04 12:27] LABS: Basophils % 0.2 %; Eosinophils # 0.1 K/mcL (0.0-0.6); Eosinophils % 0.8 %; Hematocrit 33.2 % (35.3-44.9); Hemoglobin 11.3 g/dL (11.5-15.4); Immature Granulocytes % 0.2 % (0-4); Lymphocytes # 1.2 K/mcL (0.6-4.6); Lymphocytes % 12.3 %; Mean Corpuscular Hemoglobin 30.4 pg (28.0-33.3); Mean Corpuscular Volume 89.2 fL (83.0-100.0); Mean Platelet Volume 10.1 fL (9.4-12.4); Monocytes # 0.5 K/mcL (0.0-1.3); Monocytes % 5.7 %; Neutrophils # 7.7 K/mcL (1.6-8.9); Platelet Count 293 K/mcL (140-400); Red Blood Count 3.72 M/mcL (3.82-4.97); Red Cell Distribution Width 12.5 % (11.5-14.5); Segmented Neutrophils % 80.8 %; White Blood Count 9.5 K/mcL (4.3-11.1)
[2018-10-04] MEDS ORDERED: Ondansetron 4 MG/2 ML VIAL IVP ONE (12:35)
--- NOTE | 2018-10-04 12:44 | Emergency Department Note ---
Disposition Clinical Impression: Lower abdominal pain Hematuria Qualifiers: Hematuria type: unspecified type Qualified Code(s): R31.9 - Hematuria, unspecified UTI (urinary tract infection) Qualifiers: Urinary tract infection type: site unspecified Hematuria presence: with hematuria Qualified Code(s): N39.0 - Urinary tract infection, site not specified Disposition: Admitted As Inpatient Condition: Good Referrals: Jessika Cline STRIKER OFF [Primary Care Provider] - Forms: ED Satisfaction Letter, Work/School Release Time of Disposition: 15:36 Abdominal Pain HPI - General Chief Complaint: ED Abdominal Pain Stated Complaint: hematuria/abd pain Time Seen by Provider: 10/04/18 11:03 Source: patient Mode of arrival: ambulatory Limitations: no limitations Nursing Notes Reviewed: Yes Vital Signs Reviewed: Yes - History of Present Illness HPI Narrative: Patient is a 43 old female presents emergency Department with reports of abdominal pain. Patient states that approximately 5 days ago she was changing the battery on a trail came and had batteries between her dentures and her denture shift and she ended up swallowing the batteries. Patient states that marine cárdenas was seen by surgery and had a battery move from her esophagus but she still had one within her transverse colon. Patient states that this morning she woke up and had significant abdominal pain in her lower abdomen. Patient also states that she developed blood in her urine as well as passing small blood clots in her urine. Patient states that she has not been febrile, having any diarrhea or vomiting. Patient states that she has been nauseated. Patient states that the pain is all over her abdomen but specifically worse in the suprapubic region. Pain Scale: 9 - Related Data Home Medications Medication Instructions Recorded Confirmed Levothyroxine Sodium [Levoxyl] 125 mcg PO QAM 01/16/18 10/01/18 Polyethylene Glycol 3350 [MiraLax 17 gm PO DAILY 01/16/18 10/01/18 bowel prep] Sennosides [Senokot] 8.6 mg PO DAILY 09/21/18 10/01/18 Docusate [Colace] 100 mg PO DAILY 10/01/18 10/01/18 Echinacea 500 mg PO DAILY 10/01/18 10/01/18 Glucosamn/Condroitn/C/Mn/Tyrone 1 tab PO DAILY 10/01/18 10/01/18 [[facility] Glucosamine Chondroit Cplt] Thiamine HCl [Vitamin B-1] 100 mg PO DAILY 10/01/18 10/01/18 Escitalopram [Lexapro] 10 mg PO DAILY 10/04/18 10/04/18 Previous Rx's Medication Instructions Recorded Omeprazole [PriLOSEC] 40 mg PO DAILY #20 cap 09/21/18 Sucralfate [Carafate] 1 gm PO QIDAC 30 Days #120 tablet 10/02/18 Allergies Allergy/AdvReac Type Severity Reaction Status Date / Time aspirin [ASA] Allergy Hives Verified 10/04/18 10:33 Iodinated Contrast- Oral and Allergy Hives Verified 10/04/18 10:33 IV Dye ketorolac [From Toradol] Allergy Hives Verified 10/04/18 10:33 prochlorperazine Allergy Hives Verified 10/04/18 10:33 [From Compazine] All systems ED: reviewed and negative except as stated. Constitutional: Denies: fever Cardiovascular: Denies: chest pain Respiratory: Denies: dyspnea Gastrointestinal: Reports: abdominal pain, nausea. Denies: vomiting, diarrhea Genitourinary: Reports: hematuria Musculoskeletal: Denies: back pain Neurological: Denies: weakness, numbness, paresthesias Abdominal Pain PMH - Past Medical History Medical history: Reports: non-contributory, DVT, pulmonary embolus, thyroid disease, other Female Surgical History: Reports: non-contributory, appendectomy, cholecystectomy, hysterectomy, other HOST/HOSTESS HEAD history: Reports: other Psychiatric history: Reports: no psych history - Social History Smoking status: Current every day smoker Alcohol use: Reports: none Drug use: Reports: none Physical Exam - General Limitations: no limitations General appearance: alert, in no apparent distress - Head Head exam: atraumatic, normocephalic - Eye Eye exam: Present: normal appearance, EOMI - Neck Neck exam: Present: normal inspection, full ROM, trachea midline - Respiratory Respiratory exam: Present: normal lung sounds bilaterally. Absent: respiratory distress, wheezes - Cardiovascular Cardiovascular exam: Present: regular rate, normal rhythm, normal heart sounds, +S1, +S2 - Abdominal Exam Abdominal exam: Present: soft, tenderness, normal bowel sounds Abdominal tenderness: Present: suprapubic, moderate - Neurological Exam Neurological exam: Present: alert, oriented X3 - Psychiatric Psychiatric exam: Present: normal affect, normal mood - Skin Skin exam: Present: warm, dry, intact Course Vital Signs Temperature 98 F 10/04/18 10:33 Pulse Rate 96 10/04/18 10:33 Respiratory Rate 18 10/04/18 10:33 Blood Pressure 106/64 10/04/18 10:33 O2 Sat by Pulse Oximetry 100 10/04/18 10:33 Temperature 98 F 10/04/18 10:33 Pulse Rate 81 10/04/18 16:03 Respiratory Rate 18 10/04/18 16:03 Blood Pressure 91/70 10/04/18 16:03 O2 Sat by Pulse Oximetry 99 10/04/18 16:03 Oxygen Delivery Oxygen Delivery Room Air Abdominal Pain - MDM Narrative Medical decision making narrative: Due the patient presented emergency Department with reports of abdominal pain after swallowing a button batteries we will obtain basic laboratory testing as well as a CT scan of the abdomen and pelvis. The abdomen and pelvis showed that the button battery has moved to the sigmoid colon. The patient denies any urinary symptoms. However her urinalysis shows evidence of possible urinary tract infection. The patient be given a gram or Rocephin. Acute care surgery was consult and evaluate the patient at bedside. They recommended due to the patient having significant ongoing pain that she be admitted to the medical service. A consult to acute care surgery has been placed and the patient be admitted to the medical service for further evaluation and management. The patient received multiple rounds of analgesics here in the emergency department. Called and spoke the admitting hospitals Dr. Weber and he is except the patient their service. Patient be admitted to hospital this time for further evaluation and management. - Medical Records Medical records reviewed: Yes I reviewed the patient's medical records. - Lab Data Lab results reviewed: Yes I reviewed the patient's lab results. Result diagrams: 10/04/18 11:47 10/04/18 11:47 Lab Results 10/04/18 10/04/18 10/04/18 Range/Units 11:28 11:47 11:47 WBC 9.5 (4.3-11.1) K/mcL RBC 3.72 L (3.82-4.97) M/mcL Hgb 11.3 L (11.5-15.4) g/dL Hct 33.2 L (35.3-44.9) % MCV 89.2 (83.0-100.0) fL MCH 30.4 (28.0-33.3) pg MCHC 34.0 (31.6-35.5) g/dL RDW 12.5 (11.5-14.5) % Plt Count 293 (140-400) K/mcL MPV 10.1 (9.4-12.4) fL Immature Gran % 0.2 (0-4) % Seg Neutrophils % 80.8 % Lymphocytes % 12.3 % Monocytes % 5.7 % Eosinophils % 0.8 % Basophils % 0.2 % Neutrophils # 7.7 (1.6-8.9) K/mcL Lymphocytes # 1.2 (0.6-4.6) K/mcL Monocytes # 0.5 (0.0-1.3) K/mcL Eosinophils # 0.1 (0.0-0.6) K/mcL Basophils # 0.0 (0.0-0.2) K/mcL Sodium 141 (136-145) mEq/L Potassium 3.9 (3.5-5.1) mEq/L Chloride 103 (98-107) mEq/L Carbon Dioxide 27 (23-29) mEq/L BUN 12 (6-20) mg/dL Creatinine 0.53 L (0.60-1.20) mg/dL Est GFR ( Amer) > 60 (> 60) Est GFR (Non-Af Amer) > 60 (> 60) BUN/Creatinine Ratio 23 (6-26) Glucose 84 (70-105) mg/dL Calculated Osmolality 291 (280-300) Calcium 9.1 (8.6-10.3) mg/dL Total Bilirubin 0.2 L (0.3-1.0) mg/dL Direct Bilirubin 0.1 (0.0-0.2) mg/dL Indirect Bilirubin 0.1 (0.0-1.2) mg/dL AST 15 (13-39) Units/L ALT 14 (7-52) Units/L Alkaline Phosphatase 109 H (34-104) Units/L Serum Total Protein 6.1 L (6.4-8.9) g/dL Albumin 3.8 (3.5-5.7) g/dL Globulin 2.3 L (2.4-3.5) g/dL Albumin/Globulin Ratio 1.7 (1.1-2.2) Lipase 11 (11-82) Units/L Urine Color Yellow (Yellow) Urine Clarity Turbid A (Clear) Urine pH 7.0 (5.0-8.0) pH Units Ur Specific [place] 1.021 (1.010-1.025) Urine Protein 100 H (Neg-Trace) mg/dL Urine Glucose (UA) Normal (Normal) mg/dL Urine Ketones Negative (Negative) mg/dL Urine Blood Large H (Negative) Urine Nitrite Negative (Negative) Urine Bilirubin Negative (Negative) Urine Urobilinogen Normal (Normal) mg/dL Ur Leukocyte Esterase Large H (Negative) Urine Microscopic RBC TNTC H (0-3) per hpf Urine Microscopic WBC TNTC H (0-3) per hpf Ur Squamous Epith Cells Many H (None-Few) per lpf Urine Bacteria Few (None-Few) per hpf Hyaline Casts None Seen (None-Few) per lpf Ur Culture Indicated? YES A (NO) - Radiology Data Radiology results reviewed: Yes I reviewed the patient's radiology results. Abdomen/Pelvis CT 10/04/18 11:16 IMPRESSION: 1. Apparent interval transit of ingested foreign body, now seen in the sigmoid colon. Provided history states that this has been removed. It is unclear if the provided history is incorrect or if the patient has ingested another foreign body. Recommend correlation with interval history. 2. No mucosal abnormalities in the GI tract. 3. 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 D/ / Lai Lyn MD / Lai Lyn MD Interpreting Provider: Lai Lyn MD
[2018-10-04 12:46] LABS: Blood Urea Nitrogen 12 mg/dL (6-20); Carbon Dioxide 27 mEq/L (23-29); Chloride 103 mEq/L (98-107); Potassium 3.9 mEq/L (3.5-5.1); Sodium 141 mEq/L (136-145)
[2018-10-04 12:47] LABS: Alanine Aminotransferase 14 Units/L (7-52); Albumin 3.8 g/dL (3.5-5.7); Albumin/Globulin Ratio 1.7 (1.1-2.2); Alkaline Phosphatase 109 Units/L (34-104); Aspartate Amino Transferase 15 Units/L (13-39); BUN/Creatinine Ratio 23 (6-26); Bilirubin,Direct 0.1 mg/dL (0.0-0.2); Bilirubin,Indirect 0.1 mg/dL (0.0-1.2); Bilirubin,Total 0.2 mg/dL (0.3-1.0); Calcium 9.1 mg/dL (8.6-10.3); Globulin 2.3 g/dL (2.4-3.5); Glucose 84 mg/dL (70-105); Lipase 11 Units/L (11-82); Osmolality,Calculated 291 (280-300); Total Protein 6.1 g/dL (6.4-8.9); eGFR For African Americans > 60 (> 60); eGFR For Non-African Americans > 60 (> 60)
[2018-10-04] MEDS ORDERED: *HR* HYDROmorphone (PF) 1 MG/ML SYRINGE IVP ONE ×6 (13:03→21:38)
--- NOTE | 2018-10-04 14:55 | Emergency Department Note ---
Disposition Clinical Impression: Lower abdominal pain Hematuria Qualifiers: Hematuria type: unspecified type Qualified Code(s): R31.9 - Hematuria, unspecified UTI (urinary tract infection) Qualifiers: Urinary tract infection type: site unspecified Hematuria presence: with hematuria Qualified Code(s): N39.0 - Urinary tract infection, site not specified Disposition: Admitted As Inpatient Condition: Good Referrals: Jessika Cline RETINAL SURGEON [Primary Care Provider] - Forms: ED Satisfaction Letter, Work/School Release Time of Disposition: 16:12 General Adult HPI - General Chief complaint: ED Abdominal Pain Stated complaint: hematuria/abd pain Time Seen by Provider: 10/04/18 11:03 Source: patient Mode of arrival: ambulatory Limitations: no limitations - History of Present Illness Pain Scale: 9 - Related Data Home Medications Medication Instructions Recorded Confirmed Levothyroxine Sodium [Levoxyl] 125 mcg PO QAM 01/16/18 10/04/18 Polyethylene Glycol 3350 [MiraLax 17 gm PO DAILY 01/16/18 10/04/18 bowel prep] Sennosides [Senokot] 8.6 mg PO DAILY 09/21/18 10/04/18 Docusate [Colace] 100 mg PO DAILY 10/01/18 10/01/18 Echinacea 500 mg PO DAILY 10/01/18 10/04/18 Glucosamn/Condroitn/C/Mn/[place] 1 tab PO DAILY 10/01/18 10/04/18 [[facility] Glucosamine Chondroit Cplt] Thiamine HCl [Vitamin B-1] 100 mg PO DAILY 10/01/18 10/04/18 Escitalopram [Lexapro] 10 mg PO DAILY 10/04/18 10/04/18 Previous Rx's Medication Instructions Recorded Omeprazole [PriLOSEC] 40 mg PO DAILY #20 cap 09/21/18 Sucralfate [Carafate] 1 gm PO QIDAC 30 Days #120 tablet 10/02/18 Allergies Allergy/AdvReac Type Severity Reaction Status Date / Time aspirin [ASA] Allergy Hives Verified 10/04/18 10:33 Iodinated Contrast- Oral and Allergy Hives Verified 10/04/18 10:33 IV Dye ketorolac [From Toradol] Allergy Hives Verified 10/04/18 10:33 prochlorperazine Allergy Hives Verified 10/04/18 10:33 [From Compazine] Constitutional: Denies: fever Cardiovascular: Denies: chest pain Respiratory: Denies: dyspnea Gastrointestinal: Reports: abdominal pain, nausea. 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 - Social History Smoking Status: Current every day smoker Smokeless Tobacco Status: No Alcohol use: Reports: none Drug use: Reports: none Physical Exam - General Limitations: no limitations General appearance: alert, in no apparent distress Course Vital Signs Temperature 98 F 10/04/18 10:33 Pulse Rate 96 10/04/18 10:33 Respiratory Rate 18 10/04/18 10:33 Blood Pressure 106/64 10/04/18 10:33 O2 Sat by Pulse Oximetry 100 10/04/18 10:33 Temperature 98 F 10/04/18 10:33 Pulse Rate 81 10/04/18 16:03 Respiratory Rate 18 10/04/18 16:03 Blood Pressure 91/70 10/04/18 16:03 O2 Sat by Pulse Oximetry 99 10/04/18 16:03 Oxygen Delivery Oxygen Delivery Room Air Medical Decision Making - MDM Narrative Medical decision making narrative: Patient was seen by Dr. hanson. Would like the patient to be admitted to the hospitalist service secondary to pain issues in her abdomen. We have ordered IV Rocephin for the potential urinary tract infection due to the significant amount of hematuria and white blood cells present. - Medical Records Medical records reviewed: Yes I reviewed the patient's medical records. - Lab Data Lab results reviewed: Yes I reviewed the patient's lab results. Result diagrams: 10/04/18 11:47 10/04/18 11:47 Lab Results 10/04/18 10/04/18 10/04/18 Range/Units 11:28 11:47 11:47 WBC 9.5 (4.3-11.1) K/mcL RBC 3.72 L (3.82-4.97) M/mcL Hgb 11.3 L (11.5-15.4) g/dL Hct 33.2 L (35.3-44.9) % MCV 89.2 (83.0-100.0) fL MCH 30.4 (28.0-33.3) pg MCHC 34.0 (31.6-35.5) g/dL RDW 12.5 (11.5-14.5) % Plt Count 293 (140-400) K/mcL MPV 10.1 (9.4-12.4) fL Immature Gran % 0.2 (0-4) % Seg Neutrophils % 80.8 % Lymphocytes % 12.3 % Monocytes % 5.7 % Eosinophils % 0.8 % Basophils % 0.2 % Neutrophils # 7.7 (1.6-8.9) K/mcL Lymphocytes # 1.2 (0.6-4.6) K/mcL Monocytes # 0.5 (0.0-1.3) K/mcL Eosinophils # 0.1 (0.0-0.6) K/mcL Basophils # 0.0 (0.0-0.2) K/mcL Sodium 141 (136-145) mEq/L Potassium 3.9 (3.5-5.1) mEq/L Chloride 103 (98-107) mEq/L Carbon Dioxide 27 (23-29) mEq/L BUN 12 (6-20) mg/dL Creatinine 0.53 L (0.60-1.20) mg/dL Est GFR ( Amer) > 60 (> 60) Est GFR (Non-Af Amer) > 60 (> 60) BUN/Creatinine Ratio 23 (6-26) Glucose 84 (70-105) mg/dL Calculated Osmolality 291 (280-300) Calcium 9.1 (8.6-10.3) mg/dL Total Bilirubin 0.2 L (0.3-1.0) mg/dL Direct Bilirubin 0.1 (0.0-0.2) mg/dL Indirect Bilirubin 0.1 (0.0-1.2) mg/dL AST 15 (13-39) Units/L ALT 14 (7-52) Units/L Alkaline Phosphatase 109 H (34-104) Units/L Serum Total Protein 6.1 L (6.4-8.9) g/dL Albumin 3.8 (3.5-5.7) g/dL Globulin 2.3 L (2.4-3.5) g/dL Albumin/Globulin Ratio 1.7 (1.1-2.2) Lipase 11 (11-82) Units/L Urine Color Yellow (Yellow) Urine Clarity Turbid A (Clear) Urine pH 7.0 (5.0-8.0) pH Units Ur Specific [place] 1.021 (1.010-1.025) Urine Protein 100 H (Neg-Trace) mg/dL Urine Glucose (UA) Normal (Normal) mg/dL Urine Ketones Negative (Negative) mg/dL Urine Blood Large H (Negative) Urine Nitrite Negative (Negative) Urine Bilirubin Negative (Negative) Urine Urobilinogen Normal (Normal) mg/dL Ur Leukocyte Esterase Large H (Negative) Urine Microscopic RBC TNTC H (0-3) per hpf Urine Microscopic WBC TNTC H (0-3) per hpf Ur Squamous Epith Cells Many H (None-Few) per lpf Urine Bacteria Few (None-Few) per hpf Hyaline Casts None Seen (None-Few) per lpf Ur Culture Indicated? YES A (NO) - Radiology Data Radiology results reviewed: Yes I reviewed the patient's radiology results. Attestation Statement - Attestation Attestation: I examined this patient and my medical decision-making was reviewed with the Resident Physician. I agree with the documented findings, disposition and treatment plan as described except to the extent set forth below. 43 female presented to emergency room for abdominal pain. She also complaining of hematuria. She accidentally ingested some batteries 2 days ago. Should one removed from the esophagus endoscopically. She is now completely of lower abdominal pain associated with hematuria. Workup here with including a CT scan does show evidence of the 1 battery remaining of which they knew about. There is no evidence of any perforation or any secondary signs of ischemia or colitis. Her urine had too numerous to count RBCs and WBCs. This could be a urinary tract infection. We will consult with the general surgery team due to the abdominal pain and the battery being present. Her lab work is otherwise stable at this time. Disposition pending. We will need to start her on some antibiotics for the urine infection. We have ordered a urine culture as well.
[2018-10-04] MEDS ORDERED: cefTRIAXone 1,000 MG in Water for inj. (sterile) 10 ML IVP ONE (15:33)
--- NOTE | 2018-10-04 15:34 | AcuteCare Surgery Consult Note ---
Date of Encounter: 10/04/18 Time of Encounter: 15:31 Assessment and Plan (1) Lower abdominal pain Current Visit: Yes Status: Acute 43F with LLQ pain and hematuria; Imaging shows progression of foreign object; non obstructing nephrolithiasis; diet as tolerated bowel regimen IVF urology consult concerning hematuria serial exams; no surgery while patient is non peritoneal; serial imaging if needed; suspect it will continue to progress until it passes; will continue to follow History of Present Illness Consult date: 10/04/18 Reason for consult: abdominal pain History of present illness: 43F who presents to the hospital due to abdominal pain. She was last evaluated about 3-4 days prior after ingesting batteries inadvertently. She did have imaging which revealed one lodged in her upper Gi tract and another that had progressed to her lower GI tract (T. colon). She did have an EGD to remove the more proximal battery. She was discharged home and was doing fine until today when she felt sudden onset of abdominal pain localized to her LLQ. No ass ociated fevers, chills, nausea or vomiting. She does report blood in her urine however. She has had a prior history of nephrolithiasis, but states this pain is nothing like that. Imaging was obtained which demonstrated transit of the battery to her sigmoid colon. Past Med Surg Social Fam HX - Past Medical History Medical history: non-contributory, DVT, pulmonary embolus, thyroid disease, other Additional medical history: DDD Psychiatric history: no psych history - Past Surgical History Surgical History: appendectomy, cholecystectomy, colectomy, colostomy, hysterectomy, knee replacement, orthopedic, other Additional surgical history: sections of bowel remove, colostomy - Social History Smoking Status: Current every day smoker Smokeless Tobacco Status: No Alcohol use: none Drug use: none - Family History Father Living Status: Still Living Hx Family Cardiac Disorders: Yes (cardiomyopathy, CHF) Medications and Allergies Levothyroxine Sodium [Levoxyl] 125 mcg PO QAM 01/16/18 [History] Polyethylene Glycol 3350 [MiraLax bowel prep] 17 gm PO DAILY 01/16/18 [History] Omeprazole [PriLOSEC] 40 mg PO DAILY #20 cap 09/21/18 [Rx] Sennosides [Senokot] 8.6 mg PO DAILY 09/21/18 [History] Docusate [Colace] 100 mg PO DAILY 10/01/18 [History] Echinacea 500 mg PO DAILY 10/01/18 [History] Glucosamn/Condroitn/C/Mn/[place] [[facility] Glucosamine Chondroit Cplt] 1 tab PO DAILY 10/01/18 [History] Thiamine HCl [Vitamin B-1] 100 mg PO DAILY 10/01/18 [History] Sucralfate [Carafate] 1 gm PO QIDAC 30 Days #120 tablet 10/02/18 [Rx] Allergy/AdvReac Type Severity Reaction Status Date / Time aspirin [ASA] Allergy Hives Verified 10/04/18 10:33 Iodinated Contrast- Oral and Allergy Hives Verified 10/04/18 10:33 IV Dye ketorolac [From Toradol] Allergy Hives Verified 10/04/18 10:33 prochlorperazine Allergy Hives Verified 10/04/18 10:33 [From Compazine] Review of Systems All systems PM: 12 point ROS negative besides HPI findings General Surgery Exam Initial Vital Signs Temp Pulse Resp BP Pulse Ox 98 F 96 18 106/64 100 10/04/18 10:33 10/04/18 10:33 10/04/18 10:33 10/04/18 10:33 10/04/18 10:33 - General physical appearance no distress - Eyes PERRL, normal ocular movement - ENT normocephalic - Neck trachea midline, no lymphadectomy - Respiratory normal expansion, normal respiratory effort - Cardiovascular Cardiovascular exam: Present: RRR - Abdomen Abdomen general surgery: Present: soft, tender, surgical scars Abdominal Tenderness: Present: LLQ (non peritoneal) - Integumentary Integumentary general surgery: Present: warm and dry, no abnormal pigmentation - Neurologic Present: CN 2-12 grossly intact - Musculoskeletal Present: normal posture - Psychiatric Psychiatric general surgery: Present: A&Ox3 Exam Initial Vital Signs Temp Pulse Resp BP Pulse Ox 98 F 96 18 106/64 100 10/04/18 10:33 10/04/18 10:33 10/04/18 10:33 10/04/18 10:33 10/04/18 10:33 Results - Labs 10/04/18 11:47 10/04/18 11:47 Abnormal lab results RBC 3.72 M/mcL (3.82-4.97) L 10/04/18 11:47 Hgb 11.3 g/dL (11.5-15.4) L 10/04/18 11:47 Hct 33.2 % (35.3-44.9) L 10/04/18 11:47 Creatinine 0.53 mg/dL (0.60-1.20) L 10/04/18 11:47 Total Bilirubin 0.2 mg/dL (0.3-1.0) L 10/04/18 11:47 Alkaline Phosphatase 109 Units/L (34-104) H 10/04/18 11:47 Serum Total Protein 6.1 g/dL (6.4-8.9) L 10/04/18 11:47 Globulin 2.3 g/dL (2.4-3.5) L 10/04/18 11:47 Urine Clarity Turbid (Clear) A 10/04/18 11:28 Urine Protein 100 mg/dL (Neg-Trace) H 10/04/18 11:28 Urine Blood Large (Negative) H 10/04/18 11:28 Ur Leukocyte Esterase Large (Negative) H 10/04/18 11:28 Urine Microscopic RBC TNTC per hpf (0-3) H 10/04/18 11:28 Urine Microscopic WBC TNTC per hpf (0-3) H 10/04/18 11:28 Ur Squamous Epith Cells Many per lpf (None-Few) H 10/04/18 11:28 Ur Culture Indicated? YES (NO) A 10/04/18 11:28 Diabetes panel 10/04/18 Range/Units 11:47 Sodium 141 (136-145) mEq/L Potassium 3.9 (3.5-5.1) mEq/L Chloride 103 (98-107) mEq/L Carbon Dioxide 27 (23-29) mEq/L BUN 12 (6-20) mg/dL Creatinine 0.53 L (0.60-1.20) mg/dL Glucose 84 (70-105) mg/dL Calcium 9.1 (8.6-10.3) mg/dL AST 15 (13-39) Units/L ALT 14 (7-52) Units/L Alkaline Phosphatase 109 H (34-104) Units/L Albumin 3.8 (3.5-5.7) g/dL Calcium panel 10/04/18 Range/Units 11:47 Calcium 9.1 (8.6-10.3) mg/dL Albumin 3.8 (3.5-5.7) g/dL Pituitary panel 10/04/18 Range/Units 11:47 Sodium 141 (136-145) mEq/L Potassium 3.9 (3.5-5.1) mEq/L Chloride 103 (98-107) mEq/L Carbon Dioxide 27 (23-29) mEq/L BUN 12 (6-20) mg/dL Creatinine 0.53 L (0.60-1.20) mg/dL Glucose 84 (70-105) mg/dL Calcium 9.1 (8.6-10.3) mg/dL Adrenal panel 10/04/18 Range/Units 11:47 Sodium 141 (136-145) mEq/L Potassium 3.9 (3.5-5.1) mEq/L Chloride 103 (98-107) mEq/L Carbon Dioxide 27 (23-29) mEq/L BUN 12 (6-20) mg/dL Creatinine 0.53 L (0.60-1.20) mg/dL Glucose 84 (70-105) mg/dL Calcium 9.1 (8.6-10.3) mg/dL Total Bilirubin 0.2 L (0.3-1.0) mg/dL AST 15 (13-39) Units/L ALT 14 (7-52) Units/L Alkaline Phosphatase 109 H (34-104) Units/L Albumin 3.8 (3.5-5.7) g/dL All other labs normal. - Imaging CT scan - abdomen: report reviewed, image reviewed CT scan - pelvis: report reviewed, image reviewed Consult Discharge Plan - Plan Referrals: Jessika Cline CNP [Primary Care Provider] -
[2018-10-04] MEDS ORDERED: *HR* HYDROmorphone (PF) 1 MG/ML SYRINGE ONE (15:59)
[2018-10-04] MEDS ORDERED: *HR* Promethazine 25 MG/ML VIAL IVP PRN (16:53)
[2018-10-04] MEDS ORDERED: Ondansetron ODT 4 MG TAB.RAPDIS SL PRN (16:53)
[2018-10-04] MEDS ORDERED: Naloxone 0.4 MG/ML INJ IVP PRN (16:53)
[2018-10-04] MEDS ORDERED: Ketamine *HR* 17 MG in 0.9 % Sodium Chloride 100 ML IVPB ONE (16:58)
[2018-10-04] MEDS ORDERED: *HR* FentaNYL (PF) 100 MCG/2 ML VIAL IVP PRN (17:38)
[2018-10-04] MEDS ORDERED: *HR* OxyCODONE Immed Rel 5 MG TABLET PO PRN (19:23)
[2018-10-04] MEDS ORDERED: Ringers Solution, Lactated 1,000 ML IVC ONE (19:23)
--- NOTE | 2018-10-04 19:28 | Internal Med History&Physical ---
Date of Encounter: 10/04/18 Time of Encounter: 19:23 Internal Medicine - H&P: HPI Chief complaint: Abdominal Pain History of present illness: Ms. Rodriguez is a 43 year old female with history of recent ingestion of two button batteries presents with acute abdominal pain and gross hematuria. Patient was seen over the weekend after unintentionally swallowing tube button batteries. One of the button batteries lodged in the esophagus and was retrieved. Other button battery passed through GI tract and ended up in colon. Patient was otherwise stable so discharged 10/01 and told to assess stool to see if second button was passed. This morning patient woke up with acute left lower quadrant abdominal pain and gross hematuria and clots. No dysuria or urinary frequency. No history of UTIs. Came to the ED today for pain control. Past Med Surg Social Fam HX - Past Medical History Medical history: non-contributory, DVT, pulmonary embolus, thyroid disease, other Additional medical history: DDD Psychiatric history: no psych history - Past Surgical History Surgical History: appendectomy, cholecystectomy, colectomy, colostomy, hysterectomy, knee replacement, orthopedic, other Additional surgical history: sections of bowel remove, colostomy - Social History Smoking Status: Current every day smoker Smokeless Tobacco Status: No Alcohol use: none Drug use: none - Family History Father Living Status: Still Living Hx Family Cardiac Disorders: Yes (cardiomyopathy, CHF) Internal Medicine - H&P: Meds Levothyroxine Sodium [Levoxyl] 125 mcg PO QAM 01/16/18 [History] Polyethylene Glycol 3350 [MiraLax bowel prep] 17 gm PO DAILY 01/16/18 [History] Omeprazole [PriLOSEC] 40 mg PO DAILY #20 cap 09/21/18 [Rx] Sennosides [Senokot] 8.6 mg PO DAILY 09/21/18 [History] Echinacea 500 mg PO DAILY 10/01/18 [History] Glucosamn/Condroitn/C/Mn/[place] [[facility] Glucosamine Chondroit Cplt] 1 tab PO DAILY 10/01/18 [History] Thiamine HCl [Vitamin B-1] 100 mg PO DAILY 10/01/18 [History] Sucralfate [Carafate] 1 gm PO QIDAC 30 Days #120 tablet 10/02/18 [Rx] Escitalopram [Lexapro] 10 mg PO DAILY 10/04/18 [History] Allergy/AdvReac Type Severity Reaction Status Date / Time aspirin [ASA] Allergy Hives Verified 10/04/18 10:33 Iodinated Contrast- Oral and Allergy Hives Verified 10/04/18 10:33 IV Dye ketorolac [From Toradol] Allergy Hives Verified 10/04/18 10:33 prochlorperazine Allergy Hives Verified 10/04/18 10:33 [From Compazine] All Systems PM: A 10-system review of systems was performed and is negative for pertinent findings except as documented above in the HPI. Review of systems: General: Fevers / Chills / Weight loss / Night sweats Eyes: Blurry Vision / Change in Vision HENT: Ear Pain / Ear Drainage / Rhinorrhea / Throat Pain / Lymphadenopathy Cardiovascular: Chest Pain / Palpatations / Orthopnea / LOPEZ / Weight gain Lungs: Dyspnea / Wheezing / Cough / Sputum production / Pleurisy Abdomen: Abdomen pain / Abdominal distention / Nausea / Vomiting / Diarrhea / Const : Dysuria / Urinary Frequency / Urinary Urgency / Hematuria Extremities: LE edema / Ext pain / Ext erythema Skin: Rashes / Abrasions / Contusions Psych: Hallucinations / Anxiety / Depression Neuro: Weakness / Numbness / Tingling / Facial Droop / Dysphagia - Constitutional Vitals: Temp Pulse Resp BP Pulse Ox 98.2 F 91 15 113/82 96 10/04/18 18:55 10/04/18 18:55 10/04/18 18:55 10/04/18 18:55 10/04/18 18:55 Exam: General: Ill-appearing and in no acute distress HEENT: No erythema of posterior pharynx. No exudates. Lymphatics: No mandibular or cervical lymphadenopathy Cardiovascular: RRR. No murmurs. No chest wall tenderness. Lungs: Clear to auscelltation bilaterally. Regular chest rise. Abdomen: Very tender LLQ. No rebound or gaurding. Nl bowel sounds. Extremities: No edema. 2+ pulses radial and pedal pulses Skin: No rahses, abrasions, or contusions. Nl cap refill. Psych: Nl attention. A&Ox3 Neuro: stopboard assembler II-XII intact. 5/5 strength. Sensation to light touch and pinprick intact. Internal Med - H&P Results - Labs CBC & Chem 7: 10/04/18 11:47 10/04/18 11:47 Labs: Short CBC 10/04/18 Range/Units 11:47 WBC 9.5 (4.3-11.1) K/mcL Hgb 11.3 L (11.5-15.4) g/dL Hct 33.2 L (35.3-44.9) % Plt Count 293 (140-400) K/mcL Neutrophils # 7.7 (1.6-8.9) K/mcL BMP 10/04/18 11:47 Sodium 141 Potassium 3.9 Chloride 103 Carbon Dioxide 27 BUN 12 Creatinine 0.53 L Glucose 84 Calcium 9.1 Liver Function 10/04/18 Range/Units 11:47 Total Bilirubin 0.2 L (0.3-1.0) mg/dL Direct Bilirubin 0.1 (0.0-0.2) mg/dL AST 15 (13-39) Units/L ALT 14 (7-52) Units/L Alkaline Phosphatase 109 H (34-104) Units/L Albumin 3.8 (3.5-5.7) g/dL Urine 10/04/18 Range/Units 11:28 Urine Color Yellow (Yellow) Urine Clarity Turbid A (Clear) Urine pH 7.0 (5.0-8.0) pH Units Ur Specific [place] 1.021 (1.010-1.025) Urine Protein 100 H (Neg-Trace) mg/dL Urine Glucose (UA) Normal (Normal) mg/dL - Impressions ITS Impressions Abdomen/Pelvis CT 10/04/18 11:16 IMPRESSION: 1. Apparent interval transit of ingested foreign body, now seen in the sigmoid colon. Provided history states that this has been removed. It is unclear if the provided history is incorrect or if the patient has ingested another foreign body. Recommend correlation with interval history. 2. No mucosal abnormalities in the GI tract. 3. 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 D/ / Lai Lyn MD / Lai Lyn MD Interpreting Provider: Lai Lyn MD - Assessment and Plan (1) Gross hematuria Current Visit: Yes Status: Acute Assessment and plan: Patient with history of recent ingestion of two button batteries presents with acute abdominal pain and gross hematuria in the setting of stable vitals, LLQ tenderness on px, stable Hg, UA with gross hematuria and LE but with few bacteria, and CT abd/pelvis with evidence of button battery in sigmoid colon but nl bladder. -No comment on erosion of battery into bladder, however, obvious concern for this given clinical history -Gross hematuria could also be secondary to UTI but, given circumstances, less likely the case PLAN: - Urology consulted and will plan for cystoscopy in the morning - Ceftriaxone - NPO@MN (2) LLQ abdominal pain Current Visit: Yes Status: Acute Assessment and plan: Likely secondary to either gross hematuria or battery erosion. Surgery consult in and recommend bowel regimen and urology consult and will continue to follow. - Bowel regimen - Other recs per above - Surgery will follow (3) Acute cystitis Current Visit: Yes Status: Acute Assessment and plan: Per above Qualifiers: Hematuria presence: with hematuria Qualified Code(s): N30.01 - Acute cystitis with hematuria (4) Ingestion of button battery Current Visit: Yes Status: Acute Assessment and plan: Per above Qualifiers: Encounter type: subsequent encounter Qualified Code(s): T18.9XXD - Foreign body of alimentary tract, part unspecified, subsequent encounter - Time Spent With Patient Total time spent is greater than 50% in coordination of care (as documented) at patient's floor/unit and/or counseling patient:
[2018-10-04] MEDS: Sucralfate 1 GM TABLET PO SCH (20:21)
[2018-10-04] MEDS ORDERED: Acetaminophen IV 1,000 MG/100 ML INFUS..BTL IVPB ONE (20:36)
[2018-10-04] MEDS: Nicotine 14 MG PATCH.TD24 TD SCH (22:04)
[2018-10-05 01:54] LABS: Basophils % 0.4 %; Eosinophils # 0.1 K/mcL (0.0-0.6); Eosinophils % 2.2 %; Hematocrit 32.3 % (35.3-44.9); Hemoglobin 10.7 g/dL (11.5-15.4); Immature Granulocytes % 0.4 % (0-4); Lymphocytes # 1.3 K/mcL (0.6-4.6); Lymphocytes % 23.3 %; Mean Corpuscular HGB Conc 33.1 g/dL (31.6-35.5); Mean Corpuscular Hemoglobin 30.1 pg (28.0-33.3); Mean Corpuscular Volume 90.7 fL (83.0-100.0); Mean Platelet Volume 9.9 fL (9.4-12.4); Monocytes # 0.4 K/mcL (0.0-1.3); Monocytes % 7.9 %; Neutrophils # 3.6 K/mcL (1.6-8.9); Platelet Count 275 K/mcL (140-400); Red Blood Count 3.56 M/mcL (3.82-4.97); Red Cell Distribution Width 12.5 % (11.5-14.5); Segmented Neutrophils % 65.8 %; White Blood Count 5.5 K/mcL (4.3-11.1)
[2018-10-05 01:59] LABS: INR 1.1; Prothrombin Time 12.4 Seconds (9.4-12.1)
[2018-10-05 02:09] LABS: BUN/Creatinine Ratio 18 (6-26); Blood Urea Nitrogen 11 mg/dL (6-20); Calcium 8.7 mg/dL (8.6-10.3); Carbon Dioxide 29 mEq/L (23-29); Chloride 107 mEq/L (98-107); Glucose 121 mg/dL (70-105); Osmolality,Calculated 291 (280-300); Potassium 3.8 mEq/L (3.5-5.1); Sodium 140 mEq/L (136-145); eGFR For African Americans > 60 (> 60); eGFR For Non-African Americans > 60 (> 60)
[2018-10-05] MEDS: *HR* HYDROmorphone (PF) 1 MG/ML SYRINGE IVP PRN ×5 (02:17→20:18)
[2018-10-05] MEDS: Sucralfate 1 GM TABLET PO SCH ×4 (06:15→20:17)
[2018-10-05] MEDS: Thiamine (B-1) 100 MG TABLET PO SCH (08:34)
[2018-10-05] MEDS: cefTRIAXone 1,000 MG in Water for inj. (sterile) 10 ML IVP SCH (08:35)
[2018-10-05] MEDS: Nicotine 14 MG PATCH.TD24 TD SCH (08:35)
--- NOTE | 2018-10-05 09:14 | AcuteCareSurgery Progress Note ---
<Nanci Titus - Last Filed: 10/05/18 09:12> Date of Encounter: 10/05/18 Time of Encounter: 09:12 - Assessment and Plan (1) Ingestion of button battery Current Visit: Yes Status: Acute The patient reports she will be evaluated by urology today for her hematuria and pelvic pain. Patient with positive bowel movement this morning. Imaging notes that the battery continues to progress. Recommended continued bowel regimen of stool softeners and MiraLAX. There remains no acute surgical intervention. Surgery will sign off at this time. Thank you for allowing us to participate and Wendi's care. Please call or reconsult if further questions or needs arise. Qualifiers: Encounter type: subsequent encounter Qualified Code(s): T18.9XXD - Foreign body of alimentary tract, part unspecified, subsequent encounter Subjective Patient reports: still having pain, tolerating liquids well, voiding w/o difficulty, flatus, bowel movement, afebrile Objective Vital Signs - Last 8 Hours Temp Pulse Resp BP Pulse Ox 10/05/18 07:47 98.0 F 63 16 99/45 98 10/05/18 04:09 97.8 F 66 17 95/60 97 10/05/18 02:10 109/68 Intake and Output 10/04/18 10/05/18 10/05/18 23:59 07:59 15:59 Output Total 300 / 300 Balance -300 / -290 Output: Urine 300 / 300 Other: Stool Characteristics Normal for Patient Weight 85.3 kg Patient Weight 10/05/18 23:59 Weight 85.3 kg - General physical appearance no distress, moderate pain - ENT atraumatic, normocephalic - Neck Neck exam: trachea midline - Cardiovascular Cardiovascular exam: Present: RRR - Abdomen Abdomen: Present: bowel sounds present, soft, tender. Absent: distended, guarding, rebound, peritoneal Abdominal Tenderness: RLQ, LLQ - Integumentary no rash - Neurologic normal sensation - Musculoskeletal normal posture - Psychiatric oriented to time, oriented to person, oriented to place, speech is normal - Labs 10/05/18 01:23 10/05/18 01:23 Diabetes panel 10/04/18 10/05/18 Range/Units 11:47 01:23 Sodium 141 140 (136-145) mEq/L Potassium 3.9 3.8 (3.5-5.1) mEq/L Chloride 103 107 (98-107) mEq/L Carbon Dioxide 27 29 (23-29) mEq/L BUN 12 11 (6-20) mg/dL Creatinine 0.53 L 0.61 (0.60-1.20) mg/dL Glucose 84 121 H (70-105) mg/dL Calcium 9.1 8.7 (8.6-10.3) mg/dL AST 15 (13-39) Units/L ALT 14 (7-52) Units/L Alkaline Phosphatase 109 H (34-104) Units/L Albumin 3.8 (3.5-5.7) g/dL Calcium panel 10/04/18 10/05/18 Range/Units 11:47 01:23 Calcium 9.1 8.7 (8.6-10.3) mg/dL Albumin 3.8 (3.5-5.7) g/dL Pituitary panel 10/04/18 10/05/18 Range/Units 11:47 01:23 Sodium 141 140 (136-145) mEq/L Potassium 3.9 3.8 (3.5-5.1) mEq/L Chloride 103 107 (98-107) mEq/L Carbon Dioxide 27 29 (23-29) mEq/L BUN 12 11 (6-20) mg/dL Creatinine 0.53 L 0.61 (0.60-1.20) mg/dL Glucose 84 121 H (70-105) mg/dL Calcium 9.1 8.7 (8.6-10.3) mg/dL Adrenal panel 10/04/18 10/05/18 Range/Units 11:47 01:23 Sodium 141 140 (136-145) mEq/L Potassium 3.9 3.8 (3.5-5.1) mEq/L Chloride 103 107 (98-107) mEq/L Carbon Dioxide 27 29 (23-29) mEq/L BUN 12 11 (6-20) mg/dL Creatinine 0.53 L 0.61 (0.60-1.20) mg/dL Glucose 84 121 H (70-105) mg/dL Calcium 9.1 8.7 (8.6-10.3) mg/dL Total Bilirubin 0.2 L (0.3-1.0) mg/dL AST 15 (13-39) Units/L ALT 14 (7-52) Units/L Alkaline Phosphatase 109 H (34-104) Units/L Albumin 3.8 (3.5-5.7) g/dL Consult Discharge Plan - Plan Referrals: Celina Townsend CNP [Partnered Physician] - 10/11/18 1:00 pm <RommelRan Akanksha - Last Filed: 10/05/18 12:44> Date of Encounter: 10/05/18 Objective Vital Signs - Last 8 Hours Temp Pulse Resp BP Pulse Ox 10/05/18 11:50 98.4 F 82 16 105/70 95 10/05/18 07:47 98.0 F 63 16 99/45 98 Intake and Output 10/04/18 10/05/18 10/05/18 23:59 07:59 15:59 Output Total 300 / 300 Balance -300 / -290 Output: Urine 300 / 300 Other: Stool Characteristics Normal for Patient Weight 85.3 kg Patient Weight 10/05/18 23:59 Weight 85.3 kg - Labs 10/05/18 01:23 10/05/18 01:23 Diabetes panel 10/04/18 10/05/18 Range/Units 11:47 01:23 Sodium 141 140 (136-145) mEq/L Potassium 3.9 3.8 (3.5-5.1) mEq/L Chloride 103 107 (98-107) mEq/L Carbon Dioxide 27 29 (23-29) mEq/L BUN 12 11 (6-20) mg/dL Creatinine 0.53 L 0.61 (0.60-1.20) mg/dL Glucose 84 121 H (70-105) mg/dL Calcium 9.1 8.7 (8.6-10.3) mg/dL AST 15 (13-39) Units/L ALT 14 (7-52) Units/L Alkaline Phosphatase 109 H (34-104) Units/L Albumin 3.8 (3.5-5.7) g/dL Calcium panel 10/04/18 10/05/18 Range/Units 11:47 01:23 Calcium 9.1 8.7 (8.6-10.3) mg/dL Albumin 3.8 (3.5-5.7) g/dL Pituitary panel 10/04/18 10/05/18 Range/Units 11:47 01:23 Sodium 141 140 (136-145) mEq/L Potassium 3.9 3.8 (3.5-5.1) mEq/L Chloride 103 107 (98-107) mEq/L Carbon Dioxide 27 29 (23-29) mEq/L BUN 12 11 (6-20) mg/dL Creatinine 0.53 L 0.61 (0.60-1.20) mg/dL Glucose 84 121 H (70-105) mg/dL Calcium 9.1 8.7 (8.6-10.3) mg/dL Adrenal panel 10/04/18 10/05/18 Range/Units 11:47 01:23 Sodium 141 140 (136-145) mEq/L Potassium 3.9 3.8 (3.5-5.1) mEq/L Chloride 103 107 (98-107) mEq/L Carbon Dioxide 27 29 (23-29) mEq/L BUN 12 11 (6-20) mg/dL Creatinine 0.53 L 0.61 (0.60-1.20) mg/dL Glucose 84 121 H (70-105) mg/dL Calcium 9.1 8.7 (8.6-10.3) mg/dL Total Bilirubin 0.2 L (0.3-1.0) mg/dL AST 15 (13-39) Units/L ALT 14 (7-52) Units/L Alkaline Phosphatase 109 H (34-104) Units/L Albumin 3.8 (3.5-5.7) g/dL - Attending Attestation I have personally performed a face to face evaluation on this patient. I have reviewed and agree with the care plan. History and Exam by me shows: The patient is seen and evaluated on morning rounds with the acute care surgery team. She continues to have some abdominal pain. I do not believe that this is related to the battery. The battery is now in the sigmoid colon. The battery is relatively small with smooth edges and should pass normally. The battery appears to be intact. No further action necessary. Surgery will sign off Samuel Carney MD FACS
--- NOTE | 2018-10-05 14:05 | Urology - Consult Note ---
<Janet Madsen N - Last Filed: 10/05/18 14:02> Date of Encounter: 10/05/18 Time of Encounter: 12:30 - Assessment and Plan (1) Gross hematuria Current Visit: Yes Status: Acute Assessment and plan: Patient is a 43-year-old female who presents the history of gross hematuria. We discussed potential etiologies for hematuria including left renal stone, urinary tract infection, and less commonly a bladder malignancy or foreign body erosion. Patient's CT also suggested a small, 4 mm left angiomyolipoma. I did not d iscuss this finding with the patient, as Dr. Soto will review the CT images and discuss with patient personally. CT images suggest foreign-body has migrated to the sigmoid colon, although, there has been no confirmed passage in patient's stool. We will tentatively plan to proceed with a bedside cystoscopy tomorrow afternoon. Patient does not need to be NPO for this procedure. (2) Ingestion of button battery Current Visit: Yes Status: Acute Qualifiers: Encounter type: subsequent encounter Qualified Code(s): T18.9XXD - Foreign body of alimentary tract, part unspecified, subsequent encounter Urology CN:[facility] Consult date: 10/05/18 Reason for consult Urology: Gross Hematuria Requesting physician: Ethan Chilel History of present illness: Patient is a 43-year-old female who presents with a history of gross hematuria. Patient admits to an accidental ingestion of two lithium button batteries approximately 5 days ago. Endoscopy was performed to retrieve one battery from the esophagus, and the other battery was visualized in the sigmoid colon by CT yesterday afternoon. Patient reports gross hematuria since yesterday morning, but she denies any dysuria, urgency, frequency, fever, chills, incontinence or flank pain. Patient has a long-standing history of smoking, and she also has a long-standing history of renal stones. Patient reports no prior history of gross hematuria. Past Med Surg Social Fam HX - Past Medical History Medical history: non-contributory, DVT, pulmonary embolus, thyroid disease, other Additional medical history: DDD Psychiatric history: no psych history - Past Surgical History Surgical History: appendectomy, cholecystectomy, colectomy, colostomy, hyst erectomy, knee replacement, orthopedic, other Additional surgical history: sections of bowel remove, colostomy - Social History Smoking Status: Current every day smoker Smokeless Tobacco Status: No Alcohol use: none Drug use: none - Family History Father Living Status: Still Living Hx Family Cardiac Disorders: Yes (cardiomyopathy, CHF) Medications and Allergies Levothyroxine Sodium [Levoxyl] 125 mcg PO QAM 01/16/18 [History] Polyethylene Glycol 3350 [MiraLax bowel prep] 17 gm PO DAILY 01/16/18 [History] Omeprazole [PriLOSEC] 40 mg PO DAILY #20 cap 09/21/18 [Rx] Sennosides [Senokot] 8.6 mg PO DAILY 09/21/18 [History] Echinacea 500 mg PO DAILY 10/01/18 [History] Glucosamn/Condroitn/C/Mn/P[place]oy [Cvs Glucosamine Chondroit Cplt] 1 tab PO DAILY 10/01/18 [History] Thiamine HCl [Vitamin B-1] 100 mg PO DAILY 10/01/18 [History] Sucralfate [Carafate] 1 gm PO QIDAC 30 Days #120 tablet 10/02/18 [Rx] Escitalopram [Lexapro] 10 mg PO DAILY 10/04/18 [History] Polyethylene Glycol 3350 [MiraLAX] 17 gm PO DAILY PRN 10/05/18 [History] Allergy/AdvReac Type Severity Reaction Status Date / Time aspirin [ASA] Allergy Hives Verified 10/05/18 14:08 Iodinated Contrast- Oral and Allergy Hives Verified 10/05/18 14:08 IV Dye ketorolac [From Toradol] Allergy Hives Verified 10/05/18 14:08 prochlorperazine Allergy Hives Verified 10/05/18 14:08 [From Compazine] Review of Systems - Constitutional no chills, no fatigue, no fever(s) - EENT Nose, mouth and throat: no dizziness, no headache(s) - Cardiovascular no chest pain, no diaphoresis, no dyspnea - Respiratory no cough, no dyspnea - Gastrointestinal abdominal pain, nausea, no vomiting - Genitourinary Genitourinary: hematuria, no difficulty urinating, no dysuria, no flank pain, no urinary frequency, no urinary hesitancy, no urinary incontinence, no urinary urgency - Musculoskeletal no back pain, no muscle weakness - Integumentary no erythema, no rash - Neurological no confusion, no syncope - Psychiatric no anxiety, no confusion - Hematologic/Lymphatic no easy bleeding, no easy bruising - Allergic/Immunologic no throat swelling, no wheezing Exam Initial Vital Signs Temp Pulse Resp BP Pulse Ox 98 F 96 18 106/64 100 10/04/18 10:33 10/04/18 10:33 10/04/18 10:33 10/04/18 10:33 10/04/18 10:33 - General physical appearance Present: no distress, no pain - Eyes Present: PERRL, normal ocular movement - ENT Present: normal nares, no hearing loss, no congestion - Neck Present: no masses, trachea midline, no lymphadenopathy - Respiratory Present: normal respiratory effort - Cardiovascular Cardiovascular exam IM: RRR - Abdomen Abdomen: Present: soft, non tender. Absent: distended - Genitourinary Present: other (No CVAT) - Integumentary Present: no rash, no abnormal pigmentation - Neurologic Present: normal coordination - Musculoskeletal Present: other (Normal posture) Urology Results - Labs 10/05/18 01:23 10/05/18 01:23 Abnormal lab results RBC 3.56 M/mcL (3.82-4.97) L 10/05/18 01:23 Hgb 10.7 g/dL (11.5-15.4) L 10/05/18 01:23 Hct 32.3 % (35.3-44.9) L 10/05/18 01:23 PT 12.4 Seconds (9.4-12.1) H 10/05/18 01:23 Creatinine 0.53 mg/dL (0.60-1.20) L 10/04/18 11:47 Glucose 121 mg/dL (70-105) H 10/05/18 01:23 Total Bilirubin 0.2 mg/dL (0.3-1.0) L 10/04/18 11:47 Alkaline Phosphatase 109 Units/L (34-104) H 10/04/18 11:47 Serum Total Protein 6.1 g/dL (6.4-8.9) L 10/04/18 11:47 Globulin 2.3 g/dL (2.4-3.5) L 10/04/18 11:47 Urine Clarity Turbid (Clear) A 10/04/18 11:28 Urine Protein 100 mg/dL (Neg-Trace) H 10/04/18 11:28 Urine Blood Large (Negative) H 10/04/18 11:28 Ur Leukocyte Esterase Large (Negative) H 10/04/18 11:28 Urine Microscopic RBC TNTC per hpf (0-3) H 10/04/18 11:28 Urine Microscopic WBC TNTC per hpf (0-3) H 10/04/18 11:28 Ur Squamous Epith Cells Many per lpf (None-Few) H 10/04/18 11:28 Ur Culture Indicated? YES (NO) A 10/04/18 11:28 Diabetes panel 10/05/18 Range/Units 01:23 Sodium 140 (136-145) mEq/L Potassium 3.8 (3.5-5.1) mEq/L Chloride 107 (98-107) mEq/L Carbon Dioxide 29 (23-29) mEq/L BUN 11 (6-20) mg/dL Creatinine 0.61 (0.60-1.20) mg/dL Glucose 121 H (70-105) mg/dL Calcium 8.7 (8.6-10.3) mg/dL Calcium panel 10/05/18 Range/Units 01:23 Calcium 8.7 (8.6-10.3) mg/dL Pituitary panel 10/05/18 Range/Units 01:23 Sodium 140 (136-145) mEq/L Potassium 3.8 (3.5-5.1) mEq/L Chloride 107 (98-107) mEq/L Carbon Dioxide 29 (23-29) mEq/L BUN 11 (6-20) mg/dL Creatinine 0.61 (0.60-1.20) mg/dL Glucose 121 H (70-105) mg/dL Calcium 8.7 (8.6-10.3) mg/dL Adrenal panel 10/05/18 Range/Units 01:23 Sodium 140 (136-145) mEq/L Potassium 3.8 (3.5-5.1) mEq/L Chloride 107 (98-107) mEq/L Carbon Dioxide 29 (23-29) mEq/L BUN 11 (6-20) mg/dL Creatinine 0.61 (0.60-1.20) mg/dL Glucose 121 H (70-105) mg/dL Calcium 8.7 (8.6-10.3) mg/dL All other labs normal. - Imaging CT scan - abdomen: report reviewed, image reviewed CT scan - pelvis: report reviewed, image reviewed Consult Discharge Plan - Plan Referrals: Celina Townsend, STEAM TABLE ATTENDANT [Partnered Physician] - 10/11/18 1:00 pm <Carson Soto - Last Filed: 10/05/18 22:41> Date of Encounter: 10/05/18 - Assessment and Plan (1) Gross hematuria Current Visit: Yes Status: Acute Assessment and plan: Patient seen and examined independently. History, review of systems and physical exam findings of PA verified. All pertinent imaging reviewed. I am in agreement with the assessment and plan as outlined by our Urologic Surgery Department Physician Back Up Scan Coordinator, Tena. Discussed potential etiologies evaluation with patient in detail. Plan: Bedside cystoscopy tomorrow. Exam Initial Vital Signs Temp Pulse Resp BP Pulse Ox 98 F 96 18 106/64 100 10/04/18 10:33 10/04/18 10:33 10/04/18 10:33 10/04/18 10:33 10/04/18 10:33 Urology Results - Labs 10/05/18 01:23 10/05/18 01:23 Abnormal lab results RBC 3.56 M/mcL (3.82-4.97) L 10/05/18 01:23 Hgb 10.7 g/dL (11.5-15.4) L 10/05/18 01:23 Hct 32.3 % (35.3-44.9) L 10/05/18 01:23 PT 12.4 Seconds (9.4-12.1) H 10/05/18 01:23 Creatinine 0.53 mg/dL (0.60-1.20) L 10/04/18 11:47 Glucose 121 mg/dL (70-105) H 10/05/18 01:23 Total Bilirubin 0.2 mg/dL (0.3-1.0) L 10/04/18 11:47 Alkaline Phosphatase 109 Units/L (34-104) H 10/04/18 11:47 Serum Total Protein 6.1 g/dL (6.4-8.9) L 10/04/18 11:47 Globulin 2.3 g/dL (2.4-3.5) L 10/04/18 11:47 Urine Clarity Turbid (Clear) A 10/04/18 11:28 Urine Protein 100 mg/dL (Neg-Trace) H 10/04/18 11:28 Urine Blood Large (Negative) H 10/04/18 11:28 Ur Leukocyte Esterase Large (Negative) H 10/04/18 11:28 Urine Microscopic RBC TNTC per hpf (0-3) H 10/04/18 11:28 Urine Microscopic WBC TNTC per hpf (0-3) H 10/04/18 11:28 Ur Squamous Epith Cells Many per lpf (None-Few) H 10/04/18 11:28 Ur Culture Indicated? YES (NO) A 10/04/18 11:28 Diabetes panel 10/05/18 Range/Units 01:23 Sodium 140 (136-145) mEq/L Potassium 3.8 (3.5-5.1) mEq/L Chloride 107 (98-107) mEq/L Carbon Dioxide 29 (23-29) mEq/L BUN 11 (6-20) mg/dL Creatinine 0.61 (0.60-1.20) mg/dL Glucose 121 H (70-105) mg/dL Calcium 8.7 (8.6-10.3) mg/dL Calcium panel 10/05/18 Range/Units 01:23 Calcium 8.7 (8.6-10.3) mg/dL Pituitary panel 10/05/18 Range/Units 01:23 Sodium 140 (136-145) mEq/L Potassium 3.8 (3.5-5.1) mEq/L Chloride 107 (98-107) mEq/L Carbon Dioxide 29 (23-29) mEq/L BUN 11 (6-20) mg/dL Creatinine 0.61 (0.60-1.20) mg/dL Glucose 121 H (70-105) mg/dL Calcium 8.7 (8.6-10.3) mg/dL Adrenal panel 10/05/18 Range/Units 01:23 Sodium 140 (136-145) mEq/L Potassium 3.8 (3.5-5.1) mEq/L Chloride 107 (98-107) mEq/L Carbon Dioxide 29 (23-29) mEq/L BUN 11 (6-20) mg/dL Creatinine 0.61 (0.60-1.20) mg/dL Glucose 121 H (70-105) mg/dL Calcium 8.7 (8.6-10.3) mg/dL All other labs normal.
--- NOTE | 2018-10-05 17:03 | Internal Med Progress Note ---
Hospitalist Progress Note - Encounter Date of Encounter: 10/05/18 Time of Encounter: 16:59 - Subjective Interval History: Still a lot of pain this morning. Urology evaluated the patient remained to cystoscopy tomorrow. - Exam Vitals: Temp Pulse Resp BP Pulse Ox 98.0 F 68 16 105/62 98 10/05/18 15:23 10/05/18 15:23 10/05/18 15:23 10/05/18 15:23 10/05/18 15:23 Exam: General: Ill-appearing and in no acute distress HEENT: No erythema of posterior pharynx. No exudates. Lymphatics: No mandibular or cervical lymphadenopathy Cardiovascular: RRR. No murmurs. No chest wall tenderness. Lungs: Clear to auscelltation bilaterally. Regular chest rise. Abdomen: Very tender LLQ. No rebound or gaurding. Nl bowel sounds. Extremities: No edema. 2+ pulses radial and pedal pulses Skin: No rahses, abrasions, or contusions. Nl cap refill. Psych: Nl attention. A&Ox3 Neuro: interactive media director II-XII intact. 5/5 strength. Sensation to light touch and pinprick intact. - Assessment and Plan (1) Gross hematuria Current Visit: Yes Status: Acute Assessment and Plan: Patient with history of recent ingestion of two button batteries presents with acute abdominal pain and gross hematuria in the setting of stable vitals, LLQ tenderness on px, stable Hg, UA with gross hematuria and LE but with few bacteria, and CT abd/pelvis with evidence of button battery in sigmoid colon but nl bladder. -No comment on erosion of battery into bladder, however, obvious concern for this given clinical history -Gross hematuria could also be secondary to UTI but, given circumstances, less likely the case - urine cx just with 10-50cfu of mixed morph -Other possible etiologies include undiagnosed renal stone -Uroogy evaluated patient today and may take for cystoscopy tomorrow PLAN: - Possible cystoscopy tomorrow - Ceftriaxone - UTI unlikely but will complete 3d course with one more dose of ceftriaxone tomorrow given medial uncertainty - Pain control (2) LLQ abdominal pain Current Visit: Yes Status: Acute Assessment and Plan: Etiology unclear. May be related to battery erosion but thought to be less likely given no CT evidence of this. Could be renal stone not seen on CT. S urgery consult in and recommend bowel regimen and urology consult. - Bowel regimen - Other recs per above (3) Acute cystitis Current Visit: Yes Status: Acute Assessment and Plan: Per above (4) Ingestion of button battery Current Visit: Yes Status: Acute Assessment and Plan: Per above DVT Prophylaxis: SCDs. No LMWH given hematuria - Time Spent with Patient Total time spent is greater than 50% in coordination of care (as documented) at patient's floor/unit and/or counseling patient: Internal Medicine: Result - Labs CBC & Chem 7: 10/05/18 01:23 10/05/18 01:23 Labs: Short CBC 10/05/18 Range/Units 01:23 WBC 5.5 (4.3-11.1) K/mcL Hgb 10.7 L (11.5-15.4) g/dL Hct 32.3 L (35.3-44.9) % Plt Count 275 (140-400) K/mcL Neutrophils # 3.6 (1.6-8.9) K/mcL BMP 10/05/18 01:23 Sodium 140 Potassium 3.8 Chloride 107 Carbon Dioxide 29 BUN 11 Creatinine 0.61 Glucose 121 H Calcium 8.7 - ABG Interpretation ABG results: PT/INR, D-dimer PT 12.4 Seconds (9.4-12.1) H 10/05/18 01:23 - Impressions Impressions KUB X-Ray 10/05/18 13:44 IMPRESSION: Metallic ingested foreign body projects over the sigmoid colon region, 22 mm diameter. Unremarkable bowel gas pattern. D/ / Cristiano Mathew / Cristiano Mathew Interpreting Provider: Cristiano Mathew Consult Discharge Plan - Plan Referrals: Celina Townsend, MECHANICAL FITTER [Partnered Physician] - 10/11/18 1:00 pm (3) Acute cystitis Qualifiers: Hematuria presence: with hematuria Qualified Code(s): N30.01 - Acute cystitis with hematuria (4) Ingestion of button battery Qualifiers: Encounter type: subsequent encounter Qualified Code(s): T18.9XXD - Foreign body of alimentary tract, part unspecified, subsequent encounter
[2018-10-06] MEDS: *HR* HYDROmorphone (PF) 1 MG/ML SYRINGE IVP PRN ×6 (00:26→21:15)
[2018-10-06 05:04] LABS: Hematocrit 36.7 % (35.3-44.9); Hemoglobin 12.1 g/dL (11.5-15.4); Mean Corpuscular Volume 91.1 fL (83.0-100.0); Mean Platelet Volume 10.2 fL (9.4-12.4); Platelet Count 282 K/mcL (140-400); Red Blood Count 4.03 M/mcL (3.82-4.97); Red Cell Distribution Width 12.6 % (11.5-14.5); White Blood Count 5.6 K/mcL (4.3-11.1)
[2018-10-06 05:24] LABS: BUN/Creatinine Ratio 25 (6-26); Blood Urea Nitrogen 16 mg/dL (6-20); Calcium 9.2 mg/dL (8.6-10.3); Carbon Dioxide 31 mEq/L (23-29); Chloride 104 mEq/L (98-107); Glucose 93 mg/dL (70-105); Osmolality,Calculated 291 (280-300); Sodium 140 mEq/L (136-145); eGFR For African Americans > 60 (> 60); eGFR For Non-African Americans > 60 (> 60)
[2018-10-06] MEDS: Sucralfate 1 GM TABLET PO SCH ×4 (08:19→22:02)
[2018-10-06] MEDS: Nicotine 14 MG PATCH.TD24 TD SCH (08:19)
[2018-10-06] MEDS: Thiamine (B-1) 100 MG TABLET PO SCH (08:22)
[2018-10-06] MEDS: cefTRIAXone 1,000 MG in Water for inj. (sterile) 10 ML IVP SCH (08:24)
--- NOTE | 2018-10-06 13:06 | Internal Med Progress Note ---
Hospitalist Progress Note - Encounter Date of Encounter: 10/06/18 Time of Encounter: 13:04 - Subjective Interval History: Patient underwent bedside cystoscopy today with a lot of blood present. Some concern still further nephrolithiasis even though CT scan was negative for this. We will go for further urological procedures tonight. - Exam Vitals: Temp Pulse Resp BP Pulse Ox 98.0 F 73 20 110/52 94 10/06/18 12:53 10/06/18 12:53 10/06/18 12:53 10/06/18 12:53 10/06/18 12:53 Exam: General: Ill-appearing and in no acute distress HEENT: No erythema of posterior pharynx. No exudates. Lymphatics: No mandibular or cervical lymphadenopathy Cardiovascular: RRR. No murmurs. No chest wall tenderness. Lungs: Clear to auscelltation bilaterally. Regular chest rise. Abdomen: Very tender LLQ. No rebound or gaurding. Nl bowel sounds. Extremities: No edema. 2+ pulses radial and pedal pulses Skin: No rahses, abrasions, or contusions. Nl cap refill. Psych: Nl attention. A&Ox3 Neuro: curator natural history museum II-XII intact. 5/5 strength. Sensation to light touch and pinprick intact. - Assessment and Plan (1) Gross hematuria Current Visit: Yes Status: Acute Assessment and Plan: Patient with history of recent ingestion of two button batteries presents with acute abdominal pain and gross hematuria in the setting of stable vitals, LLQ tenderness on px, stable Hg, UA with gross hematuria and LE but with few bacteria, and CT abd/pelvis with evidence of button battery in sigmoid colon but nl bladder. -No comment on erosion of battery into bladder, however, obvious concern for this given clinical history -Gross hematuria could also be secondary to UTI but, given circumstances, less likely the case - urine cx just with 10-50cfu of mixed morph -Other possible etiologies include undiagnosed renal stone -Patient underwent bedside cystoscopy today with a lot of blood present. -Some concern still further nephrolithiasis even though CT scan was negative for this. We will go for further urological procedures tonight. PLAN: - Urology to take patient for procedure night - s/p 3d of Ceftriaxone - Pain control (2) LLQ abdominal pain Current Visit: Yes Status: Acute Assessment and Plan: Etiology unclear. May be related to battery erosion but thought to be less likely given no CT evidence of this. Could be renal stone not seen on CT. Surgery consult in and recommend bowel regimen and urology consult. - Bowel regimen - Other recs per above (3) Acute cystitis Current Visit: Yes Status: Acute Assessment and Plan: Per above (4) Ingestion of button battery Current Visit: Yes Status: Acute Assessment and Plan: Per above DVT Prophylaxis: SCDs. No LMWH given hematuria Internal Medicine: Result - Labs CBC & Chem 7: 10/06/18 04:15 10/06/18 04:15 Labs: Short CBC 10/06/18 Range/Units 04:15 WBC 5.6 (4.3-11.1) K/mcL Hgb 12.1 (11.5-15.4) g/dL Hct 36.7 (35.3-44.9) % Plt Count 282 (140-400) K/mcL BMP 10/06/18 04:15 Sodium 140 Potassium 4.0 Chloride 104 Carbon Dioxide 31 H BUN 16 Creatinine 0.64 Glucose 93 Calcium 9.2 - ABG Interpretation ABG results: PT/INR, D-dimer PT 12.4 Seconds (9.4-12.1) H 10/05/18 01:23 - Impressions Impressions KUB X-Ray 10/05/18 13:44 IMPRESSION: Metallic ingested foreign body projects over the sigmoid colon region, 22 mm diameter. Unremarkable bowel gas pattern. D/ / Cristiano Mathew / Cristiano Mathew Interpreting Provider: Cristiano Mathew Consult Discharge Plan - Plan Referrals: Celina Townsend, JAZZ MUSICIAN [Partnered Physician] - 10/11/18 1:00 pm (3) Acute cystitis Qualifiers: Hematuria presence: with hematuria Qualified Code(s): N30.01 - Acute cystitis with hematuria (4) Ingestion of button battery Qualifiers: Encounter type: subsequent encounter Qualified Code(s): T18.9XXD - Foreign body of alimentary tract, part unspecified, subsequent encounter
--- NOTE | 2018-10-06 13:42 | Urology Procedure Note ---
Date of Encounter: 10/06/18 Time of Encounter: 11:20 Procedures:Urology - Cystoscopy Time out performed: Yes Reason for Cystoscopy: Gross hematuria Preparation: Povidone-Iodine Cystoscopy Results and Findings: diffuse, scattered red velvety areas in bladder dome Patient tolerated procedure: well, no complications Additional comments: Both verbal and written consent were obtained to proceed with cystoscopy. We discussed risks and benefits with patient at bedside, and she verbalized understanding. Patient lying in supine position. Patient was prepped and draped in normal sterile fashion. I gently inserted the cystoscope into patient's urethra without resistance. Upon entering the bladder, I visualized multiple, scattered, red velvety areas throughout the dome of the bladder. No discrete tumor or foreign body were visualized. Ureteral orifices were unremarkable. Patient tolerated the procedure well without complication. The cystoscope was gently removed from the patient's urethra, and the procedure was concluded. Given these findings and the patient's history of smoking, we have decided to proceed with a cystoscopy, bladder biopsy, bilateral retrograde pyelogram and diagnostic left ureteroscopy. We discussed surgical risks and benefits, and patient verbalized understanding. Patient signed consent, and she will remain nothing by mouth.
--- NOTE | 2018-10-06 17:22 | Anesthesia Evaluation PreOp ---
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 History: Other (anxietyq) Other Medical History: Thyroid (Hypo), GERD Anesthesia History: No Prior Anesthetic Complications, Past Anesthesia (JAYNE, Appy, GB, hernia, bowel resection with colostomy, colostomy reversal, spine x 6, knee x 7) : No (JAYNE) Alcohol Use: none Drug use: none Medications and Allergies Levothyroxine Sodium [Levoxyl] 125 mcg PO QAM 01/16/18 [History] Polyethylene Glycol 3350 [MiraLax bowel prep] 17 gm PO DAILY 01/16/18 [History] Omeprazole [PriLOSEC] 40 mg PO DAILY #20 cap 09/21/18 [Rx] Sennosides [Senokot] 8.6 mg PO DAILY 09/21/18 [History] Echinacea 500 mg PO DAILY 10/01/18 [History] Glucosamn/Condroitn/C/Mn/[place] [[facility] Glucosamine Chondroit Cplt] 1 tab PO DAILY 10/01/18 [History] Thiamine HCl [Vitamin B-1] 100 mg PO DAILY 10/01/18 [History] Sucralfate [Carafate] 1 gm PO QIDAC 30 Days #120 tablet 10/02/18 [Rx] Escitalopram [Lexapro] 10 mg PO DAILY 10/04/18 [History] Polyethylene Glycol 3350 [MiraLAX] 17 gm PO DAILY PRN 10/05/18 [History] Allergy/AdvReac Type Severity Reaction Status Date / Time aspirin [ASA] Allergy Hives Verified 10/05/18 14:08 Iodinated Contrast- Oral and Allergy Hives Verified 10/05/18 14:08 IV Dye ketorolac [From Toradol] Allergy Hives Verified 10/05/18 14:08 prochlorperazine Allergy Hives Verified 10/05/18 14:08 [From Compazine] - Meds/Allergy Pre-op Review Medications Reviewed: Yes Allergies Reviewed: Yes Beta Blockers on Current Med List: No Anesthesia Results - Labs 10/06/18 04:15 10/06/18 04:15 - Imaging EKG: report reviewed (Sinus rhythm Abnormal R-wave progression, early transition Electronically Signed On 10-02-2018 12:51:37 EDT by Brayan Foster) Anesthesia Exam Vital Signs/O2 Sat, Most Current Temp Pulse Resp BP Pulse Ox 98.2 F 78 15 97/64 96 10/06/18 15:16 10/06/18 15:16 10/06/18 15:16 10/06/18 15:16 10/06/18 15:16 - HEENT Pupil (Motor): Pupils equal, EOMI Mallampati: II Teeth: Edentulous Oral Opening: Greater than 3 - QUOTE CLERK LOC: Oriented QUOTE CLERK Motor: Normal RUE, Normal LUE, Normal RLE, Normal LLE, Normal Face QUOTE CLERK Sensory: Normal: RUE, LUE, RLE, LLE, Face - Cardiac Rhythm: Regular Murmur: None JVD: No Carotid Bruit: No - Pulmonary Breath Sounds: bilateral Clear Respiratory Effort: Symmetrical Anesthesia Assess/Plan ASA Score: 2 Level of consciousness: Cooperative Anesthetic Plan: General Autologous Blood: Yes Monitoring Plan: Standard Monitors Recovery Plan: PACU
[2018-10-06] MEDS ORDERED: Albuterol 2.5 MG/3 ML NEBULIZER ONE (17:51)
[2018-10-06] MEDS ORDERED: Haloperidol Lactate 5 MG/ML VIAL ONE (18:08)
[2018-10-06] MEDS ORDERED: Acetaminophen IV 1,000 MG/100 ML INFUS..BTL ONE (18:14)
[2018-10-06] MEDS ORDERED: Isovue-300 50 ML VIAL ONE (18:15)
[2018-10-06] MEDS ORDERED: *HR* Propofol 200 MG/20 ML VIAL IVP ONE (18:26)
[2018-10-06] MEDS ORDERED: *HR* Midazolam HCl 2 MG/2 ML VIAL ONE ×2 (18:26)
[2018-10-06] MEDS ORDERED: *HR* FentaNYL (PF) 100 MCG/2 ML VIAL ONE (18:26)
[2018-10-06] MEDS ORDERED: Lidocaine -MPF 2% 2 ML VIAL ONE (18:26)
[2018-10-06] MEDS ORDERED: Ondansetron 4 MG/2 ML VIAL ONE (18:36)
[2018-10-06] MEDS ORDERED: Dexamethasone 4 MG/ML VIAL ONE (18:36)
[2018-10-06] MEDS ORDERED: *HR* Rocuronium Bromide 50 MG/5 ML VIAL ONE (18:38)
[2018-10-06] MEDS ORDERED: Neostigmine Methylsulfate 3 MG/3 ML SYRINGE ONE (18:40)
[2018-10-06] MEDS ORDERED: *HR* PHENYLEPHRINE 1,000 MCG/10 ML SYRINGE IVP ONE (18:49)
[2018-10-06] MEDS ORDERED: CeFAZolin Syr 2,000MG/20 ML 2,000 MG/20 ML SYRINGE IVPB ONE (18:54)
--- NOTE | 2018-10-06 19:14 | Operative Note ---
Date of procedure: 10/06/18 Pre-op diagnosis: Brigitte hematuria, bladder lesions Post-op diagnosis: same Procedure: Cystoscopy, bladder biopsy 3 with fulguration, bilateral retrograde ureteropyelograms, diagnostic left ureteroscopy, intraoperative interpretation of all radial graphic images in real time by surgeon to facilitate procedure. Implants: None Complications: None Anesthesia: GETA Surgeon: Carson Soto Was there an chiropractor assistant present: No Estimated blood loss (cc): 2 Specimen: Bladder biopsy 3 (left lateral, right lateral, posterior mid) Condition: stable Disposition: PACU Procedure in Detail: The patient was brought to the operating theater placed on table in supine position. Patient identified by name and administered a general anesthetic. The patient was placed in dorsal lithotomy then prepped and draped in the normal sterile fashion. A cystoscope was inserted urethral meatus and advanced with the bladder under direct visualization. Multiple areas of flat slightly raised erythematous areas were scattered throughout the bladder. 3 of these were biopsied using cold cup biopsy forceps. One on the right lateral bladder wall 1 on the left lateral wall and one immediately posterior in the midline for biopsy. The specimens were collected and sent to pathology for evaluation. The biopsy sites were fulgurated. At this point using an open-ended catheter shoot a right retrograde ureteral pyelogram. Intraoperative interpretation of this radiographic images in real time by surgeon showed no filling defects, strictures or tumor. A left retrograde ureteropyelogram was performed. This was normal to the level of the UPJ with was some mild narrowing and angulation. Given this finding and her ongoing left greater than right abdominal pain diagnostic ureteroscopy was performed. The ureter was normal. The airway the UPJ showed no mucosal abnormality. The abnormality seen on retropyelogram was a nonobstructive crossing vessel which was seen pulsating under direct vision. The renal pelvis itself was normal. Pullout ureteroscopy also revealed no additional abnormalities of the left ureter. This ended the operative procedure.
--- NOTE | 2018-10-06 19:18 | Urology Progress Note ---
Date of Encounter: 10/06/18 Time of Encounter: 19:18 - Assessment and Plan (1) Gross hematuria Current Visit: Yes Status: Acute Assessment and plan: Bedside cystoscopy revealed multiple flat erythematous areas within bladder. Pranay jane had marked OR schedule today at which time 3 of these areas were biopsied and fulgurated. Bilateral retrograde ureteropyelogram showed no significant abnormality of the upper urinary tracts. Given the fact that she had left greater than right abdominal pain diagnostic left ureteroscopy was performed due to a history of stones and potential for a small stone on CT. The left ureter was entirely normal. The patient's hemoglobin and hematocrit are stable. Complete evaluation of the upper and lower urinary tract show no significant abnormalities to explain patient's abdominal pain. Suspect or hematuria is coming from the indeterminate bladder lesions found and biopsy on cystoscopy. The patient's H&H is stable., Thus, from urologic standpoint, additional workup pending biopsy results can be done on an outpatient basis. Objective Initial Vital Signs Temp Pulse Resp BP Pulse Ox 98 F 96 18 106/64 100 10/04/18 10:33 10/04/18 10:33 10/04/18 10:33 10/04/18 10:33 10/04/18 10:33 - Labs 10/06/18 04:15 10/06/18 04:15 Diabetes panel 10/06/18 Range/Units 04:15 Sodium 140 (136-145) mEq/L Potassium 4.0 (3.5-5.1) mEq/L Chloride 104 (98-107) mEq/L Carbon Dioxide 31 H (23-29) mEq/L BUN 16 (6-20) mg/dL Creatinine 0.64 (0.60-1.20) mg/dL Glucose 93 (70-105) mg/dL Calcium 9.2 (8.6-10.3) mg/dL Calcium panel 10/06/18 Range/Units 04:15 Calcium 9.2 (8.6-10.3) mg/dL Pituitary panel 10/06/18 Range/Units 04:15 Sodium 140 (136-145) mEq/L Potassium 4.0 (3.5-5.1) mEq/L Chloride 104 (98-107) mEq/L Carbon Dioxide 31 H (23-29) mEq/L BUN 16 (6-20) mg/dL Creatinine 0.64 (0.60-1.20) mg/dL Glucose 93 (70-105) mg/dL Calcium 9.2 (8.6-10.3) mg/dL Adrenal panel 10/06/18 Range/Units 04:15 Sodium 140 (136-145) mEq/L Potassium 4.0 (3.5-5.1) mEq/L Chloride 104 (98-107) mEq/L Carbon Dioxide 31 H (23-29) mEq/L BUN 16 (6-20) mg/dL Creatinine 0.64 (0.60-1.20) mg/dL Glucose 93 (70-105) mg/dL Calcium 9.2 (8.6-10.3) mg/dL Consult Discharge Plan - Plan Referrals: Celina Townsend CNP [Partnered Physician] - 10/11/18 1:00 pm
--- NOTE | 2018-10-06 19:47 | Anesthesia Evaluation Post Op ---
Date of Encounter: 10/06/18 Time of Encounter: 19:44 - Vital Signs Vital Signs: Vital Signs/O2 Sat/Glucose, Most Recent Temp Pulse Resp BP Pulse Ox 98.3 F 64 16 101/64 95 10/06/18 19:20 10/06/18 19:40 10/06/18 19:40 10/06/18 19:40 10/06/18 19:40 - Lungs Lungs: Clear Ascult./Percussion - Airway Airway: Non-obstructed - Cardiovascular Regular Rate - Mental Status Mental Status: Alert & Oriented, Answers Appropriately - Pain Pain Scale: 0 Pain Scale used: Numeric (1 - 10) - Nausea Vomiting Nausea Vomiting: Not Present - Hydration Hydration: NPO - Discharge PostOp Status: Transfer Patient to floor
[2018-10-06] MEDS ORDERED: traMADol 50 MG TABLET PO ONE (20:28)
[2018-10-06] MEDS ORDERED: *HR* LORazepam 2 MG/ML VIAL IVP ONE (22:55)
[2018-10-07] MEDS: *HR* HYDROmorphone (PF) 1 MG/ML SYRINGE IVP PRN (01:22)
[2018-10-07] MEDS ORDERED: tiZANidine 4 MG TABLET PO ONE (01:53)
[2018-10-07] MEDS ORDERED: *HR* LORazepam 2 MG/ML VIAL IVP ONE (05:38)
--- NOTE | 2018-10-07 05:49 | Event Note ---
Date of Encounter: 10/07/18 Time of Encounter: 05:30 Alerted throughout the night from pts. nurse Sarah RN that the patient was reporting itching and discomfort from receiving Haldol earlier. Patient states she has reactions to Haldol. IVP Benadryl ordered and administered twice. Patient was also reporting anxiety r/t itching and sensation of "having her skin crawl". I ordered a one-time dose of Ativan which she reported as helping. Patient also complaining of leg cramps. One-time dose of Zanaflex ordered. I read Urology notes regarding this pts. procedure which showed no reason for her abdominal pain. Alerted by patient's nurse at 03:17 that the pt. wished to see me. Nurse had alerted me that the pt. was setting her phone alarm when pain medication was due. I went to see the patient some time later. Patient was seated on the side of the bed and appeared in no pain. Pt. again stated that she was itching and had anxiety and had not slept all night. She asked for her Dilaudid. I informed her that the Urology notes found no reason for her abdominal pain and that I was discontinuing the Dilaudid. She asked for one more dose. I declined. I informed her that we would continue non-opioid pain medications from this point since there was no identifiable source for her pain. She then asked for more Benadryl. I informed her that she already had two doses and there would be no more at this time as she had recently received the other two doses. I told her I would order a one-time dose of Ativan for her anxiety. Nurse was informed of these changes. Nurse instructed to continue monitoring the pt. closely and alert me immediately of any adverse changes.
[2018-10-07] MEDS: Sucralfate 1 GM TABLET PO SCH ×2 (05:54→08:42)
[2018-10-07 07:20] VITALS: BP 104/67
[2018-10-07] MEDS: Thiamine (B-1) 100 MG TABLET PO SCH (08:41)
[2018-10-07] MEDS: Nicotine 14 MG PATCH.TD24 TD SCH (08:43)
[2018-10-07] MEDS ORDERED: traMADol 50 MG TABLET PO PRN (09:00)
[2018-10-07] MEDS ORDERED: *HR* OxyCODONE Immed Rel 5 MG TABLET PO PRN (09:13)
[2018-10-07] MEDS ORDERED: *HR* OxyCODONE Immed Rel 5 MG TABLET PO ONE (09:21)
--- NOTE | 2018-10-07 12:13 | Discharge Summary ---
Orders not resulted at time of discharge: Pending orders 10/06/18 19:10 Surgical Pathology [PTH] Routine Date of Encounter: 10/07/18 Time of Encounter: 12:08 - Discharge Diagnosis (1) Gross hematuria Priority: Primary Status: Acute (2) LLQ abdominal pain Priority: Secondary Status: Acute (3) Acute cystitis Priority: Secondary Status: Acute Qualifiers: Hematuria presence: with hematuria Qualified Code(s): N30.01 - Acute cyst itis with hematuria (4) Ingestion of button battery Priority: Secondary Status: Acute Qualifiers: Encounter type: subsequent encounter Qualified Code(s): T18.9XXD - Foreign body of alimentary tract, part unspecified, subsequent encounter Hospital course: Ms. Rodriguez is a 43 year old female with history of recent ingestion of two button batteries presented with acute abdominal pain and gross hematuria. Gross hematuria was further evaluated with CT scanning (no evidence of renal stones, button pattery passing through colon without complications) and cystoscopy with evaluation of patient's ureters by urology (evidence of three erythematous bladder wall lesions of undetermined etiology that were biopsied - may have been source of hematuria). No etiology of abdominal pain could be found so IV opioids were discontinued. Patient was very upset about not getting IV opioids so left AMA. Discharge discussed with: patient - Time Spent with Patient Total time spent providing and/or coordinating discharge services: 20 minutes Time spent: Less than 30 minutes - Discharge Medications Prescriptions: No Action Polyethylene Glycol 3350 [MiraLax bowel prep] 17 gm PO DAILY Levothyroxine Sodium [Levoxyl] 125 mcg PO QAM Sennosides [Senokot] 8.6 mg PO DAILY Omeprazole [PriLOSEC] 40 mg PO DAILY #20 cap Thiamine HCl [Vitamin B-1] 100 mg PO DAILY Glucosamn/Condroitn/C/Mn/[place] [[facility] Glucosamine Chond[place] Cplt] 1 tab PO DAILY Echinacea 500 mg PO DAILY Sucralfate [Carafate] 1 gm PO QIDAC 30 Days #120 tablet Escitalopram [Lexapro] 10 mg PO DAILY Polyethylene Glycol 3350 [MiraLAX] 17 gm PO DAILY PRN PRN Reason: Constipation Home Medications: Levothyroxine Sodium [Levoxyl] 125 mcg PO QAM 01/16/18 [History] Polyethylene Glycol 3350 [MiraLax bowel prep] 17 gm PO DAILY 01/16/18 [History] Omeprazole [PriLOSEC] 40 mg PO DAILY #20 cap 09/21/18 [Rx] Sennosides [Senokot] 8.6 mg PO DAILY 09/21/18 [History] Echinacea 500 mg PO DAILY 10/01/18 [History] Glucosamn/[place]n/C/Mn/[place] [[facility] Glucosamine Chondroit Cplt] 1 tab PO DAILY 10/01/18 [History] Thiamine HCl [Vitamin B-1] 100 mg PO DAILY 10/01/18 [History] Sucralfate [Carafate] 1 gm PO QIDAC 30 Days #120 tablet 10/02/18 [Rx] Escitalopram [Lexapro] 10 mg PO DAILY 10/04/18 [History] Polyethylene Glycol 3350 [MiraLAX] 17 gm PO DAILY PRN 10/05/18 [History] Allergies/Adverse Reactions: Allergy/AdvReac Type Severity Reaction Status Date / Time aspirin [ASA] Allergy Hives Verified 10/05/18 14:08 Iodinated Contrast- Oral and Allergy Hives Verified 10/05/18 14:08 IV Dye ketorolac [From Toradol] Allergy Hives Verified 10/05/18 14:08 prochlorperazine Allergy Hives Verified 10/05/18 14:08 [From Compazine] haloperidol [From Haldol] AdvReac Mild See Verified 10/06/18 23:19 Comments Date of admission: 10/04/18 16:27 Primary care physician: Jessika Cline CNP Consults: 10/04/18 14:54 Consult to Surgery [CONS] Stat Consulting Provider: Acute Care Surgery Reason for Consult: Battery in Sigmoid colon Call Completed: Yes 10/04/18 17:37 Consult to Urology [CONS] Routine Consulting Provider: Urology [facility] Reason for Consult: Gross hematuria and recently ingestedd battery Call Completed: Yes - Constitutional Vitals: Temp Pulse Resp BP Pulse Ox 97.9 F 84 15 104/67 96 10/07/18 07:17 10/07/18 07:17 10/07/18 07:17 10/07/18 07:17 10/07/18 07:17 Exam: General: Ill-appearing and in no acute distress HEENT: No erythema of posterior pharynx. No exudates. Lymphatics: No mandibular or cervical lymphadenopathy Cardiovascular: RRR. No murmurs. No chest wall tenderness. Lungs: Clear to auscelltation bilaterally. Regular chest rise. Abdomen: Very tender LLQ. No rebound or gaurding. Nl bowel sounds. Extremities: No edema. 2+ pulses radial and pedal pulses Skin: No rahses, abrasions, or contusions. Nl cap refill. Psych: Nl attention. 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 5/5 strength. Sensation to light touch and pinprick intact. - Patient Status Disposition: Left Against Medical Advice Condition: Fair Functional capacity at discharge: independent ambulation Overall status at discharge: patient is progressing back to baseline - Discharge Instructions Follow Up With: Celina Townsend CNP [Partnered Physician] - 10/11/18 1:00 pm - Diet and Activity Activity: increase activity as tolerated Diet: advance to your usual diet
== END 2018-10-07 11:05 | disposition left against medical advice (07) ==
LOC: 3BNU 10:30 → EMEROOARM 10:30 → SUATTDRO 16:27 → 3BNU 18:09
PROVIDERS: ADMIT Internal Medicine; ATTEND Internal Medicine

== ENCOUNTER 2019-07-14 13:21 | Observation (INO) ==
[2019-07-14] MEDS ORDERED: *HR* HYDROmorphone (PF) 1 MG/ML SYRINGE IVP ONE (14:10)
[2019-07-14] MEDS: 0.9 % Sodium Chloride 1,000 ML IVC SCH ×2 (14:35→21:14)
[2019-07-14 14:51] LABS: Basophils % 0.1 %; Eosinophils % 0.1 %; Hematocrit 33.3 % (35.3-44.9); Hemoglobin 10.4 g/dL (11.5-15.4); Immature Granulocytes % 0.7 % (0-4); Lymphocytes # 1.6 K/mcL (0.6-4.6); Lymphocytes % 10.6 %; Mean Corpuscular HGB Conc 31.2 g/dL (31.6-35.5); Mean Corpuscular Hemoglobin 26.9 pg (28.0-33.3); Mean Corpuscular Volume 86.3 fL (83.0-100.0); Mean Platelet Volume 10.3 fL (9.4-12.4); Monocytes # 1.1 K/mcL (0.0-1.3); Monocytes % 7.7 %; Neutrophils # 11.9 K/mcL (1.6-8.9); Platelet Count 304 K/mcL (140-400); Red Blood Count 3.86 M/mcL (3.82-4.97); Red Cell Distribution Width 14.2 % (11.5-14.5); Segmented Neutrophils % 80.8 %; White Blood Count 14.8 K/mcL (4.3-11.1)
[2019-07-14 15:12] LABS: Alanine Aminotransferase 16 Units/L (7-52); Albumin 4.3 g/dL (3.5-5.7); Albumin/Globulin Ratio 1.7 (1.1-2.2); Alkaline Phosphatase 117 Units/L (34-104); Aspartate Amino Transferase 17 Units/L (13-39); BUN/Creatinine Ratio 28 (6-26); Bilirubin,Total 0.2 mg/dL (0.3-1.0); Blood Urea Nitrogen 16 mg/dL (6-20); Calcium 9.4 mg/dL (8.6-10.3); Carbon Dioxide 26 mEq/L (23-29); Chloride 105 mEq/L (98-107); Globulin 2.5 g/dL (2.4-3.5); Glucose 87 mg/dL (70-105); Osmolality,Calculated 289 (280-300); Potassium 3.3 mEq/L (3.5-5.1); Sodium 139 mEq/L (136-145); Total Protein 6.8 g/dL (6.4-8.9); eGFR For African Americans > 60 (> 60); eGFR For Non-African Americans > 60 (> 60)
[2019-07-14 15:13] LABS: Troponin I < 0.03 ng/mL (< 0.04)
[2019-07-14] MEDS ORDERED: Ondansetron 4 MG/2 ML VIAL IVP ONE ×2 (15:13→15:53)
[2019-07-14] MEDS ORDERED: Ondansetron 4 MG/2 ML VIAL ONE (15:15)
[2019-07-14] MEDS ORDERED: Naloxone 0.4 MG/ML INJ IVP PRN (16:13)
[2019-07-14] MEDS: *HR* FentaNYL (PF) 100 MCG/2 ML VIAL IVP ONE ×2 (16:23→17:10)
[2019-07-14] MEDS ORDERED: *HR* FentaNYL (PF) 100 MCG/2 ML VIAL ONE (16:44)
[2019-07-14] MEDS: *HR* Midazolam HCl 5 MG/5 ML VIAL IVP ONE ×2 (17:10→17:13)
[2019-07-14] MEDS ORDERED: Pantoprazole 40 MG VIAL IVP SCH (18:00)
[2019-07-14] MEDS: Morphine Sulfate 2 MG/ML SYRINGE IVP PRN ×2 (18:14→22:27)
[2019-07-15] MEDS: Morphine Sulfate 2 MG/ML SYRINGE IVP PRN ×5 (00:38→10:20)
[2019-07-15] MEDS: Ondansetron 4 MG/2 ML VIAL IVP PRN ×2 (00:43→10:20)
[2019-07-15 02:41] LABS: Basophils % 0.2 %; Eosinophils % 0.6 %; Hematocrit 29.3 % (35.3-44.9); Hemoglobin 9.2 g/dL (11.5-15.4); Immature Granulocytes % 0.2 % (0-4); Lymphocytes # 1.6 K/mcL (0.6-4.6); Lymphocytes % 23.6 %; Mean Corpuscular HGB Conc 31.4 g/dL (31.6-35.5); Mean Corpuscular Hemoglobin 27.3 pg (28.0-33.3); Mean Corpuscular Volume 86.9 fL (83.0-100.0); Mean Platelet Volume 10.2 fL (9.4-12.4); Monocytes # 0.6 K/mcL (0.0-1.3); Monocytes % 9.5 %; Platelet Count 225 K/mcL (140-400); Red Blood Count 3.37 M/mcL (3.82-4.97); Red Cell Distribution Width 14.1 % (11.5-14.5); Segmented Neutrophils % 65.9 %
[2019-07-15 02:44] LABS: Neutrophils # 4.4 K/mcL (1.6-8.9); White Blood Count 6.6 K/mcL (4.3-11.1)
[2019-07-15] MEDS: 0.9 % Sodium Chloride 1,000 ML IVC SCH (05:48)
[2019-07-15] MEDS ORDERED: Levothyroxine Sodium 100 MCG VIAL IVP SCH (09:00)
[2019-07-15 10:45] VITALS: BP 94/59
== END 2019-07-15 13:40 | disposition home or self-care (01) ==
LOC: EMEROOARM 13:21 → 3ANU 13:21
PROVIDERS: ADMIT Surgery; ATTEND Surgery

== ENCOUNTER 2019-07-18 20:37 | Inpatient (IN) ==
[2019-07-18] MEDS: *HR* HYDROmorphone (PF) 1 MG/ML SYRINGE IVP PRN (23:58)
[2019-07-19] MEDS ORDERED: Naloxone 0.4 MG/ML INJ IVP PRN (00:16)
[2019-07-19] MEDS: 0.9 % Sodium Chloride 1,000 ML IVC SCH ×2 (01:30→09:20)
[2019-07-19] MEDS: Ondansetron 4 MG/2 ML VIAL IVP PRN ×3 (01:30→17:30)
[2019-07-19] MEDS: Nicotine 21 MG PATCH.TD24 TD SCH ×2 (01:30→19:39)
[2019-07-19] MEDS: *HR* HYDROmorphone (PF) 1 MG/ML SYRINGE IVP PRN ×10 (01:58→21:49)
[2019-07-19 02:16] LABS: Basophils % 0.2 %; Hematocrit 34.2 % (35.3-44.9); Immature Granulocytes % 0.3 % (0-4); Lymphocytes # 0.2 K/mcL (0.6-4.6); Lymphocytes % 3.6 %; Mean Corpuscular HGB Conc 31.6 g/dL (31.6-35.5); Mean Corpuscular Hemoglobin 27.1 pg (28.0-33.3); Mean Corpuscular Volume 85.9 fL (83.0-100.0); Mean Platelet Volume 10.1 fL (9.4-12.4); Monocytes % 0.5 %; Neutrophils # 6.2 K/mcL (1.6-8.9); Platelet Count 287 K/mcL (140-400); Red Blood Count 3.98 M/mcL (3.82-4.97); Red Cell Distribution Width 13.9 % (11.5-14.5); Segmented Neutrophils % 95.4 %; White Blood Count 6.5 K/mcL (4.3-11.1)
[2019-07-19 02:20] LABS: Hemoglobin 10.8 g/dL (11.5-15.4)
[2019-07-19 02:28] LABS: Alanine Aminotransferase 15 Units/L (7-52); Albumin 4.2 g/dL (3.5-5.7); Albumin/Globulin Ratio 1.8 (1.1-2.2); Alkaline Phosphatase 129 Units/L (34-104); Aspartate Amino Transferase 16 Units/L (13-39); BUN/Creatinine Ratio 29 (6-26); Bilirubin,Total 0.3 mg/dL (0.3-1.0); Blood Urea Nitrogen 19 mg/dL (6-20); Calcium 8.9 mg/dL (8.6-10.3); Carbon Dioxide 21 mEq/L (23-29); Chloride 107 mEq/L (98-107); Globulin 2.3 g/dL (2.4-3.5); Glucose 196 mg/dL (70-105); Magnesium 2.1 mg/dL (1.6-2.6); Osmolality,Calculated 292 (280-300); Phosphorous 3.3 mg/dL (2.7-4.5); Potassium 3.9 mEq/L (3.5-5.1); Sodium 137 mEq/L (136-145); Total Protein 6.5 g/dL (6.4-8.9); Troponin I < 0.03 ng/mL (< 0.04); eGFR For African Americans > 60 (> 60); eGFR For Non-African Americans > 60 (> 60)
[2019-07-19] MEDS ORDERED: GI Cocktail 40 ML EACH PO ONE (11:38)
[2019-07-20] MEDS: *HR* HYDROmorphone (PF) 1 MG/ML SYRINGE IVP PRN ×5 (00:01→08:46)
[2019-07-20 06:59] VITALS: BP 113/69
== END 2019-07-20 10:50 | disposition home or self-care (01) | DRG 382 ==
LOC: 3BNU
PROVIDERS: ADMIT Family Medicine; ATTEND Family Medicine

== ENCOUNTER 2021-09-20 11:16 | Observation (INO) ==
[2021-09-20 11:21] VITALS: TEMP 98.4
[2021-09-20] MEDS ORDERED: 0.9 % Sodium Chloride 1,000 ML IVC ONE (11:55)
[2021-09-20] MEDS ORDERED: *HR* HYDROmorphone (PF) 1 MG/ML SYRINGE IVP ONE ×2 (11:55→13:41)
[2021-09-20] MEDS ORDERED: Ondansetron ODT 4 MG TAB.RAPDIS SL ONE (11:55)
[2021-09-20 12:39] LABS: Basophils % 0.2 %; Eosinophils # 0.1 K/mcL (0.0-0.6); Eosinophils % 1.5 %; Hematocrit 38.4 % (35.3-44.9); Hemoglobin 12.6 g/dL (11.5-15.4); Immature Granulocytes % 0.5 % (0-4); Lymphocytes # 1.7 K/mcL (0.6-4.6); Lymphocytes % 18.9 %; Mean Corpuscular HGB Conc 32.8 g/dL (31.6-35.5); Mean Corpuscular Hemoglobin 27.8 pg (28.0-33.3); Mean Corpuscular Volume 84.6 fL (83.0-100.0); Mean Platelet Volume 10.1 fL (9.4-12.4); Monocytes # 0.7 K/mcL (0.0-1.3); Monocytes % 7.6 %; Neutrophils # 6.6 K/mcL (1.6-8.9); Platelet Count 291 K/mcL (140-400); Red Blood Count 4.54 M/mcL (3.82-4.97); Red Cell Distribution Width 14.4 % (11.5-14.5); Segmented Neutrophils % 71.3 %; White Blood Count 9.2 K/mcL (4.3-11.1)
[2021-09-20 12:59] LABS: Alanine Aminotransferase 24 Units/L (7-52); Albumin 4.2 g/dL (3.5-5.7); Albumin/Globulin Ratio 1.7 (1.1-2.2); Alkaline Phosphatase 120 Units/L (34-104); Aspartate Amino Transferase 20 Units/L (13-39); BUN/Creatinine Ratio 20 (6-26); Bilirubin,Indirect 0.3 mg/dL (0.0-1.0); Bilirubin,Total 0.3 mg/dL (0.3-1.0); Blood Urea Nitrogen 14 mg/dL (6-20); Calcium 9.4 mg/dL (8.6-10.3); Carbon Dioxide 24 mEq/L (23-29); Chloride 105 mEq/L (98-107); Globulin 2.5 g/dL (2.4-3.5); Glucose 86 mg/dL (70-105); Lipase 28 Units/L (11-82); Osmolality,Calculated 282 (280-300); Potassium 3.9 mEq/L (3.5-5.1); Sodium 136 mEq/L (136-145); Total Protein 6.7 g/dL (6.4-8.9); eGFR For African Americans > 60 (> 60); eGFR For Non-African Americans > 60 (> 60)
[2021-09-20 13:28] LABS: Bilirubin,Urine Negative (Negative); Blood,Urine Negative (Negative); Clarity,Urine Clear (Clear); Color,Urine Yellow (Yellow); Glucose,Urine (UA) Normal (Normal); Ketones,Urine Negative (Negative); Leukocyte Esterase,Urine Negative (Negative); Nitrite,Urine Negative (Negative); Protein,Urine Negative (Neg-Trace); Urobilinogen,Urine Normal (Normal)
[2021-09-20 15:03] VITALS: BP 119/61; PULSE 59; O2SAT 98
[2021-09-20] MEDS ORDERED: Ondansetron 4 MG/2 ML VIAL IVP PRN (15:24)
[2021-09-20] MEDS ORDERED: Naloxone 0.4 MG/ML INJ IVP PRN (15:24)
[2021-09-20] MEDS ORDERED: *HR* Promethazine 25 MG/ML VIAL IM PRN (15:24)
[2021-09-20] MEDS ORDERED: Ketorolac 30 MG/ML VIAL IVP PRN (15:24)
[2021-09-20] MEDS ORDERED: *HR* FentaNYL (PF) 100 MCG/2 ML VIAL IVP ONE (15:27)
[2021-09-20] MEDS ORDERED: 0.9 % Sodium Chloride 1,000 ML IVC SCH (15:30)
[2021-09-20] MEDS ORDERED: traZODone 50 MG TABLET PO SCH (21:00)
== END 2021-09-20 16:04 | disposition left against medical advice (07) ==
LOC: 3BNU 11:16 → EMEROOARM 11:16 → SUATTDRO 14:26 → 3BNU 16:07
PROVIDERS: ADMIT Family Medicine; ATTEND Nurse Practitioner

== ENCOUNTER 2021-10-05 12:56 | Observation (INO) ==
[2021-10-05] MEDS ORDERED: Doxycycline 100 MG in 0.9 % Sodium Chloride Mini Bag 100 ML IVPB ONE (15:07)
[2021-10-05] MEDS ORDERED: cefTRIAXone 2,000 MG in 0.9 % Sodium Chloride 20 ML IVP ONE (15:07)
[2021-10-05] MEDS ORDERED: Ketorolac 30 MG/ML VIAL IVP STA (15:11)
[2021-10-05] MEDS ORDERED: 0.9 % Sodium Chloride 1,000 ML IVC ONE (15:11)
[2021-10-05] MEDS ORDERED: Ondansetron 4 MG/2 ML VIAL IVP ONE (15:11)
[2021-10-05] MEDS ORDERED: Vancomycin 2,000 MG/520 ML IV.SOLN IVPB ONE (15:15)
[2021-10-05] MEDS ORDERED: Ketorolac 30 MG/ML VIAL IM ONE (15:30)
[2021-10-05] MEDS ORDERED: *HR* HYDROmorphone (PF) 1 MG/ML SYRINGE IM ONE (15:31)
[2021-10-05 16:54] LABS: Basophils % 0.4 %; Eosinophils # 0.2 K/mcL (0.0-0.6); Eosinophils % 2.6 %; Hematocrit 37.3 % (35.3-44.9); Hemoglobin 12.5 g/dL (11.5-15.4); Immature Granulocytes % 0.7 % (0-4); Lymphocytes # 1.6 K/mcL (0.6-4.6); Lymphocytes % 17.1 %; Mean Corpuscular HGB Conc 33.5 g/dL (31.6-35.5); Mean Corpuscular Hemoglobin 28.3 pg (28.0-33.3); Mean Corpuscular Volume 84.4 fL (83.0-100.0); Mean Platelet Volume 9.8 fL (9.4-12.4); Monocytes # 0.7 K/mcL (0.0-1.3); Monocytes % 7.2 %; Neutrophils # 6.6 K/mcL (1.6-8.9); Platelet Count 301 K/mcL (140-400); Red Blood Count 4.42 M/mcL (3.82-4.97); Red Cell Distribution Width 13.9 % (11.5-14.5); White Blood Count 9.1 K/mcL (4.3-11.1)
[2021-10-05 17:04] LABS: BUN/Creatinine Ratio 17 (6-26); Blood Urea Nitrogen 13 mg/dL (6-20); Calcium 9.5 mg/dL (8.6-10.3); Carbon Dioxide 27 mEq/L (23-29); Chloride 105 mEq/L (98-107); Glucose 84 mg/dL (70-105); Osmolality,Calculated 289 (280-300); Potassium 3.7 mEq/L (3.5-5.1); Sodium 140 mEq/L (136-145); eGFR For African Americans > 60 (> 60); eGFR For Non-African Americans > 60 (> 60)
[2021-10-05 17:05] LABS: Prothrombin Time 11.2 Seconds (9.4-12.1)
[2021-10-05 17:08] LABS: Activated Partial Thrombo Time 34.8 Seconds (26.0-36.0)
[2021-10-05 17:19] LABS: Adenovirus Not Detected (Not Detect); Coronavirus 229E Not Detected (Not Detect); Coronavirus HKU1 Not Detected (Not Detect); Coronavirus NL63 Not Detected (Not Detect); Coronavirus OC43 Not Detected (Not Detect); Human Metapneumovirus Not Detected (Not Detect); Human Rhinovirus/Enterovirus Not Detected (Not Detect); Influenza A Subtype 2009 H1 Not Detected (Not Detect); Influenza B Not Detected (Not Detect); Parainfluenza Virus 1 Not Detected (Not Detect); SARS-CoV-2 Not Detected (Not Detect)
[2021-10-05 17:20] LABS: Bordetella Pertussis Not Detected (Not Detect); Chlamydophila pneumoniae Not Detected (Not Detect); Mycoplasma pneumoniae Not Detected (Not Detect); Parainfluenza Virus 2 Not Detected (Not Detect); Parainfluenza Virus 3 Not Detected (Not Detect); Parainfluenza Virus 4 Not Detected (Not Detect); Respiratory Syncytial Virus Not Detected (Not Detect)
[2021-10-05] MEDS ORDERED: *HR* OxyCODONE Immed Rel 5 MG TABLET PO STA (18:48)
[2021-10-05] MEDS ORDERED: Naloxone 0.4 MG/ML INJ IVP PRN (20:35)
[2021-10-05] MEDS ORDERED: Ondansetron ODT 4 MG TAB.RAPDIS SL PRN (20:35)
[2021-10-05] MEDS: *HR* HYDROmorphone (PF) 1 MG/ML SYRINGE IVP PRN (21:48)
[2021-10-05 22:41] LABS: Bilirubin,Urine Negative (Negative); Blood,Urine Negative (Negative); Clarity,Urine Clear (Clear); Color,Urine Light-Yellow (Yellow); Glucose,Urine (UA) Normal (Normal); Ketones,Urine Negative (Negative); Leukocyte Esterase,Urine Negative (Negative); Nitrite,Urine Negative (Negative); PH,Urine 5.5 pH Units (5.0-8.0); Protein,Urine Negative (Neg-Trace); Specific Gravity,Urine 1.016 (1.010-1.025); Urobilinogen,Urine Normal (Normal)
[2021-10-05 22:53] LABS: Amphetamine Screen,Urine Negative ng/mL (Cutoff=1000); Barbiturate Screen,Urine Negative ng/mL (Cutoff=200); Benzodiazepines Screen,Urine Negative ng/mL (Cutoff=200); Cannabinoid Screen,Urine Negative ng/mL (Cutoff = 50); Cocaine Screen,Urine Negative ng/mL (Cutoff= 300); Opiate Screen,Urine Positive ng/mL (Cutoff=300); Phencyclidine Screen,Urine Negative ng/mL (Cutoff=25)
[2021-10-05] MEDS: Acyclovir 600 MG in D5% in Water 250 ML IVPB SCH (23:50)
[2021-10-06] MEDS: *HR* HYDROmorphone (PF) 1 MG/ML SYRINGE IVP PRN ×2 (01:59→06:33)
[2021-10-06 02:34] LABS: Basophils % 0.4 %; Eosinophils # 0.2 K/mcL (0.0-0.6); Eosinophils % 3.2 %; Hematocrit 33.4 % (35.3-44.9); Immature Granulocytes % 0.3 % (0-4); Lymphocytes # 1.5 K/mcL (0.6-4.6); Lymphocytes % 19.2 %; Mean Corpuscular HGB Conc 32.6 g/dL (31.6-35.5); Mean Corpuscular Hemoglobin 28.3 pg (28.0-33.3); Mean Corpuscular Volume 86.8 fL (83.0-100.0); Mean Platelet Volume 10.5 fL (9.4-12.4); Monocytes # 0.7 K/mcL (0.0-1.3); Monocytes % 8.8 %; Neutrophils # 5.1 K/mcL (1.6-8.9); Platelet Count 287 K/mcL (140-400); Red Blood Count 3.85 M/mcL (3.82-4.97); Red Cell Distribution Width 14.2 % (11.5-14.5); Segmented Neutrophils % 68.1 %; White Blood Count 7.5 K/mcL (4.3-11.1)
[2021-10-06 02:39] LABS: Hemoglobin 10.9 g/dL (11.5-15.4)
[2021-10-06 02:45] LABS: INR 1.1; Prothrombin Time 12.2 Seconds (9.4-12.1)
[2021-10-06 02:48] LABS: Activated Partial Thrombo Time 32.3 Seconds (26.0-36.0)
[2021-10-06 02:55] LABS: BUN/Creatinine Ratio 14 (6-26); Blood Urea Nitrogen 10 mg/dL (6-20); Calcium 8.4 mg/dL (8.6-10.3); Carbon Dioxide 22 mEq/L (23-29); Chloride 108 mEq/L (98-107); Glucose 121 mg/dL (70-105); Osmolality,Calculated 288 (280-300); Potassium 3.5 mEq/L (3.5-5.1); Sodium 139 mEq/L (136-145); eGFR For African Americans > 60 (> 60); eGFR For Non-African Americans > 60 (> 60)
[2021-10-06] MEDS ORDERED: cefTRIAXone 2,000 MG in 0.9 % Sodium Chloride Mini Bag 100 ML IVPB SCH (03:00)
[2021-10-06] MEDS ORDERED: Doxycycline 100 MG in 0.9 % Sodium Chloride Mini Bag 100 ML IVPB SCH (03:00)
[2021-10-06] MEDS ORDERED: Vancomycin 1,500 MG/265 ML IV.SOLN IVPB SCH (05:00)
[2021-10-06 06:31] VITALS: BP 105/66; PULSE 90; TEMP 97.6; O2SAT 95
[2021-10-06] MEDS: Acyclovir 600 MG in D5% in Water 250 ML IVPB SCH (07:42)
[2021-10-06 08:40] LABS: Magnesium 1.9 mg/dL (1.6-2.6); Phosphorous 3.4 mg/dL (2.7-4.5)
[2021-10-06] MEDS ORDERED: traZODone 50 MG TABLET PO SCH (21:00)
== END 2021-10-06 10:30 | disposition left against medical advice (07) ==
LOC: EMEROOARM 12:56 → 3BNU 12:56 → SUATTDRO 19:39 → 3BNU 20:21
PROVIDERS: ADMIT Internal Medicine; ATTEND Internal Medicine